=== PATIENT | female | born 1945 | race Caucasian/White ===

== ENCOUNTER 2016-05-24 09:25 | Outpatient (CLI) | payer MEDICARE | END 2016-05-24 09:26 | disposition home or self-care (01) | DX: I10 Essential (primary) hypertension (principal) ==

== ENCOUNTER 2016-09-21 13:29 | Outpatient (CLI) | payer MEDICARE | END 2016-09-21 13:30 | disposition home or self-care (01) | DX: Z12.31 Encounter for screening mammogram for malignant neoplasm of breast (principal) ==

== ENCOUNTER 2017-04-30 14:00 | Outpatient (CLI) | payer MEDICARE ==
[2017-04-30 20:17] LABS: BASOPHILS % (AUTO) 0.5 %; EOSINOPHILS # (AUTO) 0.1 10^3/uL (0.0-0.7); EOSINOPHILS % (AUTO) 1.2 %; HCT - HEMATOCRIT 45.3 % (37.0-47.0); HGB - HEMOGLOBIN 14.6 g/dL (12.0-16.0); LYMPHOCYTES # (AUTO) 1.1 10^3/uL (1.5-3.5); LYMPHOCYTES % (AUTO) 12.4 %; MEAN CORPUSCULAR HGB CONC 32.3 g/dL (32.0-36.0); MEAN CORPUSCULAR VOLUME 86.9 fL (81.0-99.0); MEAN PLATELET VOLUME 7.8 fL (7.9-10.8); MONOCYTES # (AUTO) 0.5 10^3/uL (0.0-1.0); MONOCYTES % (AUTO) 6.2 %; NEUTROPHILS % (AUTO) 79.7 %; RED BLOOD COUNT 5.22 10^6/uL (4.20-5.40); UNCORRECTED WHITE BLOOD COUNT 8.7 x10^3/uL; WHITE BLOOD COUNT 8.7 x10^3/uL (4.8-10.8)
[2017-04-30 20:44] LABS: ALBUMIN/GLOBULIN RATIO 0.8 (1.0-2.2); BILIRUBIN,TOTAL 0.5 mg/dL (0.2-1.0); BUN - BLOOD UREA NITROGEN 21 mg/dL (6-20); CALCIUM 9.5 mg/dL (8.5-10.3); CARBON DIOXIDE - CO2 27 mmol/L (21-32); CHLORIDE 104 mmol/L (101-111); CHOL/HDL RATIO 4.8 (<4.4); CHOLESTEROL 217 mg/dL; CREATININE 1.2 mg/dL (0.4-1.0); GFR - MDRD 44 (>89); GLUCOSE 130 mg/dL (70-100); HDL CHOLESTEROL 45 mg/dL; POTASSIUM 4.4 mmol/L (3.5-5.0); SODIUM 140 mmol/L (135-145); TOTAL PROTEIN 8.5 g/dL (6.7-8.2); TRIGLYCERIDES 194 mg/dL; VLDL CHOLESTEROL 39 mg/dL
== END 2017-04-30 14:01 ==
LOC: LAB.WCP 14:00
PROVIDERS: ATTEND Physician Assistant Medical
DX: Z51.81 Encounter for therapeutic drug level monitoring (principal); E78.5 Hyperlipidemia, unspecified; I10 Essential (primary) hypertension; R11.0 Nausea
CPT/HCPCS: 36415; 80053; 80061; 84443; 85025; 87086

== ENCOUNTER 2017-05-01 08:00 | Outpatient (CLI) | payer MEDICARE | END 2017-05-01 08:01 | disposition home or self-care (01) | LOC: LAB.WCP 08:00 | PROVIDERS: ATTEND Physician Assistant Medical | DX: R11.0 Nausea (principal) | CPT/HCPCS: 87086 ==

== ENCOUNTER 2017-08-07 11:50 | Outpatient (CLI) | payer MEDICARE ==
[2017-08-07 19:27] LABS: HB2 TOTAL 14.9 g/dL; HEMOGLOBIN A1C 0.64 g/dL; HEMOGLOBIN A1C % 6.1 % (4.6-6.2)
[2017-08-07 19:30] LABS: ALBUMIN 3.9 g/dL (3.2-5.5); ALKALINE PHOSPHATASE 73 IU/L (42-121); ALT ALANINE AMINOTRANSFERASE 17 IU/L (10-60); AST ASPARTATE AMINOTRANSFERASE 18 IU/L (10-42); BILIRUBIN,TOTAL 0.5 mg/dL (0.2-1.0); BUN - BLOOD UREA NITROGEN 18 mg/dL (6-20); CALCIUM 9.2 mg/dL (8.5-10.3); CARBON DIOXIDE - CO2 24 mmol/L (21-32); CHLORIDE 106 mmol/L (101-111); CHOL/HDL RATIO 4.1 (<4.4); CHOLESTEROL 149 mg/dL; CREATININE 1.1 mg/dL (0.4-1.0); GFR - MDRD 49 (>89); GLUCOSE 128 mg/dL (70-100); HDL CHOLESTEROL 36 mg/dL; LDL CHOLESTEROL,CALCULATED 87 mg/dL; LDL/HDL RATIO 2.4 (<4.4); SODIUM 139 mmol/L (135-145); TOTAL PROTEIN 7.9 g/dL (6.7-8.2); VLDL CHOLESTEROL 26 mg/dL
== END 2017-08-07 11:51 ==
LOC: LAB.WCP 11:50
PROVIDERS: ATTEND Family Medicine
DX: Z51.81 Encounter for therapeutic drug level monitoring (principal); E78.5 Hyperlipidemia, unspecified; E11.9 Type 2 diabetes mellitus without complications
CPT/HCPCS: 36415; 80053; 80061; 83036; 83721

== ENCOUNTER 2017-11-02 12:59 | Outpatient (CLI) | payer MEDICARE ==
--- NOTE | 2017-11-02 14:37 | XRAY Report ---
Procedure Date: 11/02/2017 Accession Number: [id number] / [id number] Procedure: XR - Ankle 3 View LT CPT Code: FULL RESULT: EXAM: LEFT ANKLE AND FOOT RADIOGRAPHY EXAM DATE: 11/02/2017 02:19 PM. CLINICAL HISTORY: Left foot pain and left ankle pain. COMPARISON: None. TECHNIQUE: 3 views ankle and 2 views foot. FINDINGS: Bones: Normal. No fractures or bone lesions. Joints: Minor degenerative changes are seen in the tibiotalar joint. No significant joint space narrowing is demonstrated. There is moderate degenerative changes seen in the mid foot structures primarily involving the tarsometatarsal joints. Alignment is preserved. Soft Tissues: There is generalized soft tissue swelling seen in the ankle and midfoot regions. IMPRESSION: No acute osseous abnormality demonstrated. Moderate degenerative changes seen in the mid foot structures without malalignment. RADIA
--- NOTE | 2017-11-02 14:37 | XRAY Report ---
Procedure Date: 11/02/2017 Accession Number: [id number] / [id number] Procedure: XR - Foot 2 View LT CPT Code: FULL RESULT: EXAM: LEFT ANKLE AND FOOT RADIOGRAPHY EXAM DATE: 11/02/2017 02:19 PM. CLINICAL HISTORY: Left foot pain and left ankle pain. COMPARISON: None. TECHNIQUE: 3 views ankle and 2 views foot. FINDINGS: Bones: Normal. No fractures or bone lesions. Joints: Minor degenerative changes are seen in the tibiotalar joint. No significant joint space narrowing is demonstrated. There is moderate degenerative changes seen in the mid foot structures primarily involving the tarsometatarsal joints. Alignment is preserved. Soft Tissues: There is generalized soft tissue swelling seen in the ankle and midfoot regions. IMPRESSION: No acute osseous abnormality demonstrated. Moderate degenerative changes seen in the mid foot structures without malalignment. RADIA
== END 2017-11-02 13:00 | disposition home or self-care (01) ==
LOC: DI 12:59
PROVIDERS: ATTEND Physician Assistant Medical
DX: M19.072 Primary osteoarthritis, left ankle and foot (principal)
CPT/HCPCS: 36415; 84550

== ENCOUNTER 2018-04-02 13:39 | Outpatient (CLI) | payer MEDICARE ==
[2018-04-02 19:20] LABS: ALBUMIN 3.8 g/dL (3.2-5.5); ALBUMIN/GLOBULIN RATIO 0.9 (1.0-2.2); ALKALINE PHOSPHATASE 85 IU/L (42-121); ALT ALANINE AMINOTRANSFERASE 17 IU/L (10-60); AST ASPARTATE AMINOTRANSFERASE 18 IU/L (10-42); BILIRUBIN,TOTAL 0.7 mg/dL (0.2-1.0); BUN - BLOOD UREA NITROGEN 25 mg/dL (6-20); CARBON DIOXIDE - CO2 26 mmol/L (21-32); CHLORIDE 105 mmol/L (101-111); CHOL/HDL RATIO 4.7 (<4.4); CHOLESTEROL 208 mg/dL; CREATININE 1.1 mg/dL (0.4-1.0); GFR - MDRD 49 (>89); GLUCOSE 119 mg/dL (70-100); HB2 TOTAL 15.2 g/dL; HDL CHOLESTEROL 44 mg/dL; HEMOGLOBIN A1C 0.65 g/dL; HEMOGLOBIN A1C % 6.1 % (4.6-6.2); LDL CHOLESTEROL,CALCULATED 135 mg/dL; LDL/HDL RATIO 3.1 (<4.4); SODIUM 141 mmol/L (135-145); TOTAL PROTEIN 7.9 g/dL (6.7-8.2); VLDL CHOLESTEROL 29 mg/dL
== END 2018-04-02 13:40 ==
LOC: LAB.WCP 13:39
PROVIDERS: ATTEND Family Medicine
DX: E78.5 Hyperlipidemia, unspecified (principal); R73.9 Hyperglycemia, unspecified; K76.0 Fatty (change of) liver, not elsewhere classified
CPT/HCPCS: 36415; 80053; 80061; 83036; 83721

== ENCOUNTER 2018-10-21 15:21 | Outpatient (CLI) | payer MEDICARE ==
--- NOTE | 2018-10-21 15:58 | XRAY Report ---
Reason: ELBOW JOINT PAIN,RIGHT Procedure Date: 10/21/2018 Accession Number: [id number] / [id number] Procedure: WCP - Elbow 3 View RT CPT Code: FULL RESULT: EXAM: RIGHT ELBOW RADIOGRAPHY EXAM DATE: 10/21/2018 03:33 PM. CLINICAL HISTORY: Elbow joint pain, right. COMPARISON: None. TECHNIQUE: 4 views. FINDINGS: The lateral view is suboptimally positioned. Bones: Irregular disruption of the cortex of the radial head on multiple views was suspicious for a radial head fracture. Osteophytosis is seen along the medial aspect of the articular surface of the olecranon. Joints: Suboptimal lateral view limits evaluation for joint effusion, none is seen. Evaluation for subluxation is also limited, no dislocation is seen. Soft Tissues: Normal. No soft tissue swelling. IMPRESSION: Radial head fracture suspected. RADIA The call report notification system was initiated by Dr. Gerard Wells at 03:55 PM on 10/21/2018. ADDENDUM: 10/21/18 16:04 The above call report findings were discussed with Mago Baldwin by Dr. Gerard Wells at 04:04 PM on 10/21/2018. Given that the patient is not focally tender over the region of the radial head, recommendation for dedicated radial head view in conjunction with a repeat lateral radiograph was made in hopes of clarifying appearance of the head of the radius.
== END 2018-10-21 15:22 | disposition home or self-care (01) ==
LOC: DI.WCP 15:21
PROVIDERS: ATTEND Physician Assistant Medical
DX: M25.521 Pain in right elbow (principal)

== ENCOUNTER 2018-10-22 11:00 | Outpatient (CLI) | payer MEDICARE ==
--- NOTE | 2018-10-22 12:14 | XRAY Report ---
Reason: TECH REPEAT - NO CHARGE - RT ELBOW PAIN Procedure Date: 10/22/2018 Accession Number: [id number] / [id number] Procedure: XR - Elbow 3 View RT CPT Code: FULL RESULT: EXAM: RIGHT ELBOW RADIOGRAPHY EXAM DATE: 10/22/2018 11:31 AM. CLINICAL HISTORY: Tech repeat - no charge - right elbow pain. COMPARISON: ELBOW 3 VIEW RT 10/21/2018 3:14 PM. TECHNIQUE: 3 views. FINDINGS: Bones: No definite fracture in the region of the radial head is identified. Joints: Osteophytes are seen in the region of the head of the elbow. Soft Tissues: The previously seen soft tissue hematoma along the dorsal aspect of the ulna has not enlarged. IMPRESSION: Favor osteophytosis in the region of the head of the elbow. Recommendation: If the patient's symptoms do not subside in an appropriate timeframe, follow-up radiography in approximately 2 weeks looking for evidence of fracture healing could be considered. RADIA
== END 2018-10-22 11:01 | disposition home or self-care (01) ==
LOC: DI 11:00
PROVIDERS: ATTEND Physician Assistant Medical
DX: M25.521 Pain in right elbow (principal)

== ENCOUNTER 2019-02-13 17:34 | Outpatient (CLI) | payer MEDICARE | END 2019-02-13 17:35 | disposition critical access hospital (66) | LOC: EMS 17:34 | PROVIDERS: ATTEND Surgery | DX: R07.9 Chest pain, unspecified (principal) | CPT/HCPCS: A0425; A0427 ==

== ENCOUNTER 2019-03-24 05:08 | Outpatient (CLI) | payer MEDICARE | END 2019-03-24 05:09 | disposition critical access hospital (66) | LOC: EMS 05:08 | PROVIDERS: ATTEND Surgery | DX: S01.01XA Laceration without foreign body of scalp, initial encounter (principal); W20.8XXA Other cause of strike by thrown, projected or falling object, initial encounter; Y92.009 Unspecified place in unspecified non-institutional (private) residence as the place of occurrence of the external cause ==

== ENCOUNTER 2019-03-24 05:25 | Emergency (ER) | payer MEDICARE ==
--- NOTE | 2019-03-24 06:02 | ED Physician Documentation ---
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 Her walker became caught on some blankets that were on the floor, causing her to fall forward. she reached for her fireplace mantle, which was not fixed to the wall, and dust the mantle fell and struck the patient on her head. She denies loss of consciousness, and only has mild headache. She sustained a laceration to her scalp as a result of the blow. Review of Systems Eyes: reports: Reviewed and negative Cardiac: reports: Reviewed and negative Respiratory: reports: Reviewed and negative GI: reports: Reviewed and negative Skin: reports: Laceration (s) Musculoskeletal: reports: Reviewed and negative Neurologic: reports: Headache (minimal), Head injury. denies: Generalized weakness, Focal weakness, Numbness, LOC PD PAST MEDICAL HISTORY - Past Medical History Cardiovascular: None Respiratory: None Endocrine/Autoimmune: None GI: None : Chronic bladder infection, Other HEENT: Chronic vision loss Psych: Anxiety Musculoskeletal: Osteoarthritis Derm: None, Other - Past Surgical History Past Surgical History: Yes General: Appendectomy, Colonoscopy HEENT: Cataracts, Tonsil/Adenoidectomy - Present Medications Home Medications: Ambulatory Orders Medication Instructions Recorded Confirmed Aspirin [Children's Aspirin] 81 mg PO DAILY 09/03/13 03/24/19 Fluoxetine HCl [Prozac] 40 mg PO DAILY 01/13/14 03/24/19 Lorazepam [Ativan] 1 mg PO TID PRN #15 tablet 02/13/19 03/24/19 - Allergies Allergies/Adverse Reactions: Allergies Allergy/AdvReac Type Severity Reaction Status Date / Time ondansetron HCl * Allergy Rash Verified 03/24/19 05:32 [From Zofran (as hydrochloride)] Sulfa (Sulfonamide AdvReac Unknown Nausea Verified 03/24/19 05:32 Antibiotics) - Social History Does the pt smoke?: No Smoking Status: Never smoker Does the pt drink ETOH?: No Does the pt have substance abuse?: No - Immunizations Immunizations are current?: Yes - POLST Patient has POLST: No POLST Status: Full Code PD ED PE NORMAL - Vitals Vital signs reviewed: Yes - General General: Alert and oriented X 3, No acute distress, Well developed/nourished - HEENT HEENT: PERRL, EOMI - Neck Neck: No bony TTP - Cardiac Cardiac: RRR, No murmur - Respiratory Respiratory: No respiratory distress, Clear bilaterally - Abdomen Abdomen: Soft, Non tender - Neuro Neuro: Alert and oriented X 3, vice president diversity 2-12 intact, No motor deficit, No sensory deficit, Normal speech Eye Opening: Spontaneous Motor: Obeys Commands Verbal: Oriented GCS Score: 15 Results - Vitals Vitals: Oxygen O2 Source Room air - Rads (name of study) CT head Radiology: Prelim report reviewed, See rad report Procedures - Laceration (location) Scalp Length in cm: 5 Wound type: Linear Neurovascular status: Sensory intact, Vascular intact Anesthesia: Lidocaine 1% Wound Preparation: Chlorhexadine Skin layer closure: [place] Other: Patient tolerated well, Neurovascular intact Complexity: Simple PD MEDICAL DECISION MAKING - ED course Complexity details: reviewed old records, reviewed results, re-evaluated p atient, considered differential, d/w patient ED course: patient denies neck pain and is nontender on exam. There are no significant distracting injuries, she is not on anticoagulants, is oriented x3, and thus cervical spine cleared clinically. Scalp laceration was repaired as noted above. CT head was equivocal for trace SAH. I discussed this at length with patient and her friend. By the time the CT was interpreted by radiology, patient reported she no longer had headache (this was without medications except local infiltration of lidocaine for wound repair). She repeatedly stated she wanted to be discharged home and expressed clear understanding of the implications of the CT reading. I offered to contact neurosurgery to discuss her case with them and obtain their recommendation. She again expressed preference to be discharged. she was in no apparent distress except for appropriate anxiety when results of CT were being discussed and repeat neurological exam remains unremarkable and without general or focal deficits. she indicates that she will call 911 immediately if she is worse in any way, and we discussed specific symptoms that would be concerning (such as headche , nausea/vomiting, confusion, numbness, weakness). Departure - Departure Disposition: 01 Home, Self Care Clinical Impression: Laceration Head injury Qualifiers: Encounter type: initial encounter Qualified Code(s): S09.90XA - Unspecified injury of head, initial encounter Condition: Good Instructions: ED Head Injury Closed Sleep Mon, ED Laceration Scalp Stitch Or S tap Follow-Up: Anastasiia Jenkins DO [Primary Care Provider] - (7-10 days for removal of tiffani) Discharge Date/Time: 03/24/19 09:17
[2019-03-24] MEDS ORDERED: LIDOCAINE 1% 2 ML VIAL SUBQ STA (06:45)
[2019-03-24] MEDS ORDERED: TETANUS/DIPHTHERIA/PERTUSSIS 0.5 ML SYRINGE IM ONE (06:46)
--- NOTE | 2019-03-24 07:29 | CT Report ---
Reason: head injury Procedure Date: 03/24/2019 Accession Number: [id number] / [id number] Procedure: CT - HEAD WO CPT Code: Final Report FULL RESULT: EXAM: CT HEAD EXAM DATE: 03/24/2019 06:39 AM CLINICAL HISTORY: Head injury. Scalp laceration. COMPARISON: None. TECHNIQUE: Multiaxial CT images were obtained from the foramen magnum to the vertex. Reformats: Sagittal and coronal. IV contrast: None. In accordance with CT protocol optimization, one or more of the following dose reduction techniques were utilized for this exam: automated exposure control, adjustment of mA and/or KV based on patient size, or use of iterative reconstructive technique. FINDINGS: Minimal CT evidence of soft tissue edema of the upper scalp. No displaced fracture. Very subtle ill-defined curvilinear increased density along the periphery of the right parietal lobe, equivocal findings for a trace of acute subarachnoid hemorrhage. Axial reference images 23 and 24 of series 3. Mild age-related generalized cerebral volume loss. No hydrocephalus. No acute infarct. Moderately prominent amorphous white matter hypoattenuation, likely attributable to aging and chronic microangiopathy. No acute sinus or mastoid fluid opacity. IMPRESSION: Equivocal findings of a trace of acute subarachnoid hemorrhage over the right parietal convexity. RADIA The above call report findings were discussed with Jono Bridges by Dr. Efren Villasenor at 07:21 AM on 03/24/2019.
[2019-03-24 09:10] VITALS: BP 137/92
== END 2019-03-24 09:17 | disposition home or self-care (01) ==
LOC: EDUNIT# → ED 05:25
DX: S06.6X0A Traumatic subarachnoid hemorrhage without loss of consciousness, initial encounter (principal); S01.01XA Laceration without foreign body of scalp, initial encounter; W01.198A Fall on same level from slipping, tripping and stumbling with subsequent striking against other object, initial encounter; Y93.01 Activity, walking, marching and hiking; Y92.009 Unspecified place in unspecified non-institutional (private) residence as the place of occurrence of the external cause; Z23 Encounter for immunization; Z79.82 Long term (current) use of aspirin
CPT/HCPCS: 12002; 70450; 90471

== ENCOUNTER 2019-05-22 08:00 | Outpatient (CLI) | payer MEDICARE | END 2019-05-22 23:59 | disposition home or self-care (01) | LOC: LAB.R 08:00 | PROVIDERS: ATTEND Family Medicine | DX: R30.0 Dysuria (principal) | CPT/HCPCS: 81002; 87086 ==

== ENCOUNTER 2019-11-11 16:00 | Outpatient (CLI) | payer MEDICARE | END 2019-11-11 23:59 | disposition home or self-care (01) | LOC: LAB.R 16:00 | PROVIDERS: ATTEND Physician Assistant Medical | DX: N39.0 Urinary tract infection, site not specified (principal) | CPT/HCPCS: 87086 ==

== ENCOUNTER 2019-11-28 17:50 | Outpatient (CLI) | payer MEDICARE | END 2019-11-28 17:51 | disposition EMS.NT | LOC: EMS 17:50 | PROVIDERS: ATTEND Surgery | DX: R51 Headache (principal) ==

== ENCOUNTER 2020-02-01 08:00 | Outpatient (CLI) | payer MEDICARE | END 2020-02-01 23:59 | disposition home or self-care (01) | LOC: LAB.R 08:00 | PROVIDERS: ATTEND Nurse Practitioner Family | DX: R30.0 Dysuria (principal) | CPT/HCPCS: 87086 ==

== ENCOUNTER 2020-02-07 02:44 | Outpatient (CLI) | payer MEDICARE | END 2020-02-07 02:45 | disposition critical access hospital (66) | LOC: EMS 02:44 | PROVIDERS: ATTEND Surgery | DX: R55 Syncope and collapse (principal); R51 Headache | CPT/HCPCS: A0425; A0427 ==

== ENCOUNTER 2020-02-07 03:02 | Emergency (ER) | payer MEDICARE ==
--- NOTE | 2020-02-07 03:15 | ED Physician Documentation ---
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 No: Neck injury Pain level max: 0 Pain level now: 0 Similar symptoms before: Has not had sx before - Additional information Additional information: BIBA for syncope. 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 She says she found that she was too weak to stand back up and had to crawl to the phone to call 911. Medics report that the initial one or two BP readings were in the 80s (systolic blood pressure) but that her SBP improved en route to 100s. They note that patient appears to be an xious. Patient had taken first dose of macrobid earlier this evening; she was seen in a clinic in [place] recently and had UA, patient tells me "they didn't find the infection on the urine test but they called me today and said it was an infection" (her description is suggestive of nondiagnostic UA but (+) urine culture). Patient says she had "hives" (per patient) on her chest and back earlier tonight after her first dose of the macrobid. 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 Review of Systems Constitutional: reports: Reviewed and negative Eyes: reports: Reviewed and negative Cardiac: reports: Reviewed and negative Respiratory: reports: Reviewed and negative GI: reports: Reviewed and negative : denies: Dysuria, Frequency Musculoskeletal: reports: Reviewed and negative Neurologic: reports: Generalized weakness, Syncope, Head injury, LOC. denies: Focal weakness, Numbness, Headache PD PAST MEDICAL HISTORY - Past Medical History Cardiovascular: None Respiratory: None Endocrine/Autoimmune: None GI: None : Chronic bladder infection, Other HEENT: Chronic vision loss Psych: Anxiety Musculoskeletal: Osteoarthritis Derm: None, Other - Past Surgical History Past Surgical History: Yes General: Appendectomy, Colonoscopy HEENT: Cataracts, Tonsil/Adenoidectomy - Present Medications Home Medications: Ambulatory Orders Medication Instructions Recorded Confirmed Aspirin [Children's Aspirin] 81 mg PO DAILY 04/17/14 11/05/19 Fluoxetine HCl [Prozac] 40 mg PO DAILY 01/13/14 03/24/19 Lorazepam [Ativan] 1 mg PO TID PRN #15 tablet 02/13/19 03/24/19 - Allergies Allergies/Adverse Reactions: Allergies Allergy/AdvReac Type Severity Reaction Status Date / Time ondansetron HCl * Allergy Rash Verified 03/24/19 05:32 [From Zofran (as hydrochloride)] Sulfa (Sulfonamide AdvReac Unknown Nausea Verified 03/24/19 05:32 Antibiotics) - Social History Does the pt smoke?: No Smoking Status: Never smoker Does the pt drink ETOH?: No Does the pt have substance abuse?: No - Immunizations Immunizations are current?: Yes - POLST Patient has POLST: No POLST Status: Full Code PD ED PE NORMAL - Vitals Vital signs reviewed: Yes - General General: Well developed/nourished, Other (appears anxious, pale; she has difficulty answering questions (difficulty concentrating and coming up with some answers)) - HEENT HEENT: PERRL, EOMI, Moist mucous membranes, Other (eyes closed, opens them briefly when asked to do so) - Neck Neck: Supple, no meningeal sign, No bony TTP - Cardiac Cardiac: RRR (distant heart sounds), No murmur, Other (thready pulse (radial) on my initial check (see narrative, below)) - Respiratory Respiratory: No respiratory distress, Clear bilaterally - Abdomen Abdomen: Soft, Non tender - Back Back: No CVA TTP, No spinal TTP - Extremities Extremities: No edema - Neuro Neuro: Alert and oriented X 3, 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, No motor deficit, No sensory def icit Eye Opening: To Voice Motor: Obeys Commands Verbal: Oriented GCS Score: 14 PD ED PE EXPANDED - Derm Derm: Pale - Extremities Extremities: Other (cool extremities) Results - Vitals Vitals: Vital Signs - 24 hr 02/07/20 02/07/20 02/07/20 03:05 03:52 04:00 Temperature 35.8 C L Heart Rate 71 67 65 Respiratory 16 16 18 Rate Blood Pressure 110/49 L 127/61 120/50 L O2 Saturation 98 98 99 02/07/20 02/07/20 02/07/20 05:00 05:30 06:00 Temperature Heart Rate 65 71 67 Respiratory 16 15 16 Rate Blood Pressure 111/65 116/63 116/62 O2 Saturation 98 96 97 02/07/20 02/07/20 02/07/20 07:25 08:00 08:30 Temperature 36.1 C L Heart Rate 76 78 85 Respiratory 18 15 16 Rate Blood Pressure 120/73 115/54 L 137/79 H O2 Saturation 98 100 99 Oxygen O2 Source Room air - EKG (time done) No standard instances Rate: Rate (enter#) (69) Rhythm: NSR [place]: LAD Intervals: Normal GA QRS: LVH Ischemia: Normal ST segments, Q waves (III, aVF) Computer interpretation: Disagree with computer (disagree with junctional) - Labs Labs: Laboratory Tests 02/07/20 02/07/20 02/07/20 03:16 03:16 03:16 WBC 17.8 H RBC 5.23 Hgb 14.8 Hct 47.9 H MCV 91.6 MCH 28.3 MCHC 30.9 L RDW 14.8 Plt Count 231 MPV 8.9 Neut # (Auto) 15.8 H Lymph # (Auto) 0.8 L [place] # (Auto) 1.0 Eos # (Auto) 0.0 Baso # (Auto) 0.1 Absolute Nucleated RBC 0.00 Nucleated RBC % 0.0 PT 14.6 H INR 1.3 H APTT 43.4 H Sodium 137 Potassium 3.4 L Chloride 102 Carbon Dioxide 18 L Anion Gap 17.0 H BUN 31 H Creatinine 1.5 H Estimated GFR (MDRD) 34 L Glucose 192 H Lactic Acid Calcium 9.2 Total Bilirubin 0.6 AST 24 ALT 18 Alkaline Phosphatase 73 Troponin I High Sens Total Protein 7.8 Albumin 3.7 Globulin 4.1 Albumin/Globulin Ratio 0.9 L Lipase 41 Urine Color Urine Clarity Urine pH Ur Specific [place] Urine Protein Urine Glucose (UA) Urine Ketones Urine Occult Blood Urine Nitrite Urine Bilirubin Urine Urobilinogen Ur Leukocyte Esterase Urine RBC Urine WBC Ur Squamous Epith Cells Amorphous Sediment Urine Bacteria Urine Mucus Ur Microscopic Review Urine Culture Comments 02/07/20 02/07/20 02/07/20 03:16 05:04 05:04 WBC RBC Hgb Hct MCV MCH MCHC RDW Plt Count MPV Neut # (Auto) Lymph # (Auto) [place] # (Auto) Eos # (Auto) Baso # (Auto) Absolute Nucleated RBC Nucleated RBC % PT INR APTT Sodium Potassium Chloride Carbon Dioxide Anion Gap BUN Creatinine Estimated GFR (MDRD) Glucose Lactic Acid 4.0 H* Calcium Total Bilirubin AST ALT Alkaline Phosphatase Troponin I High Sens 35.8 H* 101.4 H* Total Protein Albumin Globulin Albumin/Globulin Ratio Lipase Urine Color Urine Clarity Urine pH Ur Specific [place] Urine Protein Urine Glucose (UA) Urine Ketones Urine Occult Blood Urine Nitrite Urine Bilirubin Urine Urobilinogen Ur Leukocyte Esterase Urine RBC Urine WBC Ur Squamous Epith Cells Amorphous Sediment Urine Bacteria Urine Mucus Ur Microscopic Review Urine Culture Comments 02/07/20 02/07/20 02/07/20 05:13 07:20 07:30 WBC RBC Hgb Hct MCV MCH MCHC RDW Plt Count MPV Neut # (Auto) Lymph # (Auto) [place] # (Auto) Eos # (Auto) Baso # (Auto) Absolute Nucleated RBC Nucleated RBC % PT INR APTT Sodium Potassium Chloride Carbon Dioxide Anion Gap BUN Creatinine Estimated GFR (MDRD) Glucose Lactic Acid 2.3 H Calcium Total Bilirubin AST ALT Alkaline Phosphatase Troponin I High Sens 139.2 H* Total Protein Albumin Globulin Albumin/Globulin Ratio Lipase Urine Color YELLOW Urine Clarity CLEAR Urine pH 5.0 Ur Specific [place] >=1.030 H Urine Protein 100 H Urine Glucose (UA) NEGATIVE Urine Ketones NEGATIVE Urine Occult Blood MODERATE H Urine Nitrite NEGATIVE Urine Bilirubin NEGATIVE Urine Urobilinogen 0.2 (NORMAL) Ur Leukocyte Esterase NEGATIVE Urine RBC 6-10 H Urine WBC 4-5 Ur Squamous Epith Cells RARE Squamous Amorphous Sediment Few Urine Bacteria Moderate H Urine Mucus Few Strands Ur Microscopic Review INDICATED Urine Culture Comments INDICATED - Rads (name of study) CT head Radiology: Prelim report reviewed, See rad report chest xray Radiology: Prelim report reviewed, See rad report PD MEDICAL DECISION MAKING - ED course Complexity details: reviewed results, re-evaluated patient, considered differential, d/w patient ED course: patient appeared pale and had thready pulse when I initially examined her (I was in room as patient was brought in by medics and present for medic report). Her extremities were cool to the touch. As patient was connected to monitor, I was trying to feel her right radial pulse and suddenly was able palpate a strong radial pulse; this correlated with improvement in her color. 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 Her initial presentation to ED was suggestive of hypotension despite having reportedly had sbp 100s shortly before arrival (although 80s when medics had first arrived on scene). For remainder of ED stay, patient was AAOx3, NAD (although bouts of crying due to recent loss of her ), and asymptomatic. EKG does not reveal concerning emergent findings but she has mildly elevated HsTni that increased on two subsequent repeat levels. D/W Dr. Dey at [place]. He initially recommends repeat lactate, as first measurement is 4.0. The 2-hour repeat is 2.3 (high normal is 2.2), and I relayed this to Dr. Dey. He subsequently called back and says Dr. Cory Greene at [facility] in [place] accepts patient for transfer but bed won't be available until approximately 1 PM. Care of patient turned over to Dr. Pierre pending transfer.
[2020-02-07 03:26] LABS: BASOPHILS # (AUTO) 0.1 10^3/uL (0.0-0.1); BASOPHILS % (AUTO) 0.4 %; EOSINOPHILS % (AUTO) 0.2 %; HGB - HEMOGLOBIN 14.8 g/dL (12.0-16.0); LYMPHOCYTES # (AUTO) 0.8 10^3/uL (1.5-3.5); LYMPHOCYTES % (AUTO) 4.5 %; MEAN CORPUSCULAR HEMOGLOBIN 28.3 pg (27.0-31.0); MEAN CORPUSCULAR HGB CONC 30.9 g/dL (32.0-36.0); MEAN CORPUSCULAR VOLUME 91.6 fL (81.0-99.0); MEAN PLATELET VOLUME 8.9 fL (7.9-10.8); MONOCYTES % (AUTO) 5.4 %; NEUTROPHILS # (AUTO) 15.8 10^3/uL (1.5-6.6); NEUTROPHILS % (AUTO) 88.7 %; PLT - PLATELET COUNT 231 10^3/uL (130-450); RED BLOOD COUNT 5.23 10^6/uL (4.20-5.40); RED CELL DISTRIBUTION WIDTH 14.8 % (12.0-15.0); WHITE BLOOD COUNT 17.8 x10^3/uL (4.8-10.8)
[2020-02-07 03:30] LABS: INR 1.3 (0.8-1.2); PT - PROTHROMBIN TIME 14.6 secs (9.9-12.6)
[2020-02-07 03:38] LABS: ALBUMIN 3.7 g/dL (3.2-5.5); ALBUMIN/GLOBULIN RATIO 0.9 (1.0-2.2); BILIRUBIN,TOTAL 0.6 mg/dL (0.2-1.0); CALCIUM 9.2 mg/dL (8.5-10.3); CREATININE 1.5 mg/dL (0.4-1.0); PARTIAL THROMBOPLASTIN TIME 43.4 secs (24.9-33.3); TOTAL PROTEIN 7.8 g/dL (6.7-8.2)
[2020-02-07] MEDS ORDERED: SODIUM CHLORIDE 0.9% 500 ML IV STA ×2 (03:57→05:14)
[2020-02-07 05:22] LABS: BILIRUBIN,URINE NEGATIVE (NEGATIVE); GLUCOSE, URINE (UA) NEGATIVE (NEGATIVE); KETONES,URINE (UA) NEGATIVE (NEGATIVE); LEUKOCYTE ESTERASE, URINE NEGATIVE (NEGATIVE); NITRITE,URINE NEGATIVE (NEGATIVE); OCCULT BLOOD,URINE MODERATE (NEGATIVE); PROTEIN,URINE 100 mg/dL (NEGATIVE); UROBILINOGEN,URINE 0.2 (NORMAL) E.U./dL (NORMAL)
[2020-02-07 05:23] LABS: CLARITY,URINE CLEAR (CLEAR)
[2020-02-07 05:36] LABS: SQUAMOUS EPITHELIAL CELL,UR RARE Squamous (<= Few)
[2020-02-07 05:37] LABS: AMORPHOUS SEDIMENT,UR Few /LPF; BACTERIA,URINE Moderate /HPF (None Seen); MUCUS,URINE Few Strands
--- NOTE | 2020-02-07 09:24 | XRAY Report ---
PROCEDURE: Chest 1 View X-Ray INDICATIONS: chest pain TECHNIQUE: One view of the chest was acquired. COMPARISON: 04/30/2017 FINDINGS: Surgical changes and devices: None. Lungs and pleura: No pleural effusions or pneumothorax. Lungs are clear. Mediastinum: Mediastinal contours appear normal. Heart size is normal. Bones and chest wall: No suspicious bony lesions. Overlying soft tissues appear unremarkable. IMPRESSION: Normal portable chest. Note: No significant discrepancy from the preliminary report. Reviewed by: Gerard Romano MD on 02/07/2020 8:23 AM TRINI Approved by: Gerard Romano MD on 02/07/2020 8:23 AM TRINI Station ID: [id number]
--- NOTE | 2020-02-07 09:27 | CT Report ---
PROCEDURE: HEAD WO INDICATIONS: syncope, head injury, on Plavix TECHNIQUE: Noncontrast 4.5 mm thick angled axial sections acquired from the foramen magnum to the vertex. For r adiation dose reduction, the following was used: automated exposure control, adjustment of mA and/or kV according to patient size. COMPARISON: Prior head CT 03/24/2019. No additional prior brain imaging studies are available for re view on the PACS system at the time of this dictation. Correlation is also made with the accompanying chest radiograph, 02/07/2020 FINDINGS: Image quality: Diagnostic, with note made of motion artifact. CSF spaces: Basal cisterns are patent. No extra-axial fluid collections. Ventricles are normal in size and shape. Brain: No midline shift. Brain parenchymal volume loss is seen. At least moderate chronic small ves patrick ischemic change can be seen. No intracranial masses or hemorrhage. William-white matter interface i s normal. Skull and face: Areas of right-sided scalp hematoma are seen. No underlying calvarial fracture is see n. Calvarium and visualized facial bones are intact, without suspicious lesions. Sinuses: Visualized sinuses and mastoids are clear. IMPRESSION: No intracranial hemorrhage is seen. No significant intracranial abnormality is seen. Areas of right-sided scalp hematoma are seen, without an associated underlying calvarial fracture. Age-appropriate brain parenchymal volume loss and chronic small vessel ischemic change can be seen. Note: No significant discrepancy from the preliminary report. Reviewed by: Gerard Romano MD on 02/07/2020 8:26 AM TRINI Approved by: Gerard Romano MD on 02/07/2020 8:26 AM AKLESVIA Station ID: [id number]
[2020-02-07] MEDS ORDERED: ASPIRIN CHEW 81 MG TABLET PO STA (13:10)
[2020-02-07] MEDS ORDERED: ENOXAPARIN 80 MG/0.8 ML SYRINGE SUBQ STA (13:11)
[2020-02-07] MEDS ORDERED: LACTATED RINGERS 1,000 ML IV STA (13:22)
[2020-02-07 13:40] LABS: BASOPHILS % (AUTO) 0.4 %; EOSINOPHILS % (AUTO) 0.1 %; HGB - HEMOGLOBIN 12.7 g/dL (12.0-16.0); LYMPHOCYTES # (AUTO) 0.8 10^3/uL (1.5-3.5); LYMPHOCYTES % (AUTO) 7.3 %; MEAN CORPUSCULAR HEMOGLOBIN 27.5 pg (27.0-31.0); MEAN CORPUSCULAR HGB CONC 30.6 g/dL (32.0-36.0); MEAN CORPUSCULAR VOLUME 89.8 fL (81.0-99.0); MONOCYTES # (AUTO) 0.6 10^3/uL (0.0-1.0); MONOCYTES % (AUTO) 5.1 %; NEUTROPHILS # (AUTO) 9.8 10^3/uL (1.5-6.6); NEUTROPHILS % (AUTO) 86.7 %; PLT - PLATELET COUNT 201 10^3/uL (130-450); RED BLOOD COUNT 4.62 10^6/uL (4.20-5.40); RED CELL DISTRIBUTION WIDTH 14.9 % (12.0-15.0); WHITE BLOOD COUNT 11.3 x10^3/uL (4.8-10.8)
[2020-02-07 13:50] LABS: CALCIUM 8.6 mg/dL (8.5-10.3); CREATININE 1.5 mg/dL (0.4-1.0)
--- NOTE | 2020-02-07 13:55 | ED Physician Documentation ---
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 Disposition had already been determined with the transfer to [facility] for escalating troponin levels after syncopal episode. Dr. Bridges had talked with the coordinating physician for [place]. Transfer of care to ma pending room assignment and transfer. The patient remained stable without any symptoms here. Vitals are good. I did notice the lab abnormalities of the lactate that had improved. We can recheck that again. Her renal function was slightly elevated and we can reassess that now after she has had some IV fluids. Waiting room assignment from [facility]
[2020-02-07 15:40] VITALS: BP 117/55
== END 2020-02-07 16:13 | disposition short-term general hospital (02) ==
LOC: EDUNIT# → ED 03:02
DX: R55 Syncope and collapse (principal); I95.9 Hypotension, unspecified; R79.89 Other specified abnormal findings of blood chemistry; S00.03XA Contusion of scalp, initial encounter; W17.89XA Other fall from one level to another, initial encounter; Y93.E8 Activity, other personal hygiene; Y92.002 Bathroom of unspecified non-institutional (private) residence as the place of occurrence of the external cause; Z95.2 Presence of prosthetic heart valve; Z79.82 Long term (current) use of aspirin; N39.0 Urinary tract infection, site not specified
CPT/HCPCS: 36415; 70450; 71045; 80048; 80053; 81001; 83605; 83690; 84484; 85025; 85610; 85730; 87086; 93005; 96360; 96372; 99284; 99285; A9270; J1650; J7120; 81003

== ENCOUNTER 2020-02-17 14:58 | Outpatient (CLI) | payer MEDICARE ==
[2020-02-17 18:57] LABS: ALBUMIN 3.8 g/dL (3.2-5.5); BILIRUBIN,TOTAL 0.6 mg/dL (0.2-1.0); CALCIUM 9.2 mg/dL (8.5-10.3); CREATININE 1.2 mg/dL (0.4-1.0); TOTAL PROTEIN 7.7 g/dL (6.7-8.2)
== END 2020-02-17 23:59 | disposition home or self-care (01) ==
LOC: LAB.WCP 14:58
PROVIDERS: ATTEND Family Medicine
DX: N17.9 Acute kidney failure, unspecified (principal)
CPT/HCPCS: 36415; 80053

== ENCOUNTER 2020-03-10 08:00 | Outpatient (CLI) | payer MEDICARE ==
[2020-03-10 19:34] LABS: CALCIUM 9.1 mg/dL (8.5-10.3); CREATININE 1.3 mg/dL (0.4-1.0)
== END 2020-03-10 23:59 | disposition home or self-care (01) ==
LOC: LAB.WCP 08:00
PROVIDERS: ATTEND Physician Assistant Medical
DX: N17.9 Acute kidney failure, unspecified (principal); N39.0 Urinary tract infection, site not specified
CPT/HCPCS: 36415; 80048; 87086

== ENCOUNTER 2020-04-06 08:00 | Outpatient (CLI) | payer MEDICARE ==
[2020-04-06 19:20] LABS: BILIRUBIN,TOTAL 0.5 mg/dL (0.2-1.0); CALCIUM 9.4 mg/dL (8.5-10.3); CREATININE 1.2 mg/dL (0.4-1.0); TOTAL PROTEIN 8.1 g/dL (6.7-8.2)
== END 2020-04-06 23:59 | disposition home or self-care (01) ==
LOC: LAB.WCP 08:00
PROVIDERS: ATTEND Physician Assistant Medical
DX: N17.9 Acute kidney failure, unspecified (principal)
CPT/HCPCS: 36415; 80053

== ENCOUNTER 2020-05-23 11:51 | Outpatient (CLI) | payer MEDICARE ==
[2020-05-23 18:53] LABS: BASOPHILS % (AUTO) 0.4 %; CALCIUM 9.2 mg/dL (8.5-10.3); CREATININE 1.1 mg/dL (0.4-1.0); EOSINOPHILS # (AUTO) 0.1 10^3/uL (0.0-0.7); EOSINOPHILS % (AUTO) 1.6 %; HGB - HEMOGLOBIN 13.3 g/dL (12.0-16.0); LYMPHOCYTES # (AUTO) 0.7 10^3/uL (1.5-3.5); LYMPHOCYTES % (AUTO) 13.1 %; MEAN CORPUSCULAR HEMOGLOBIN 27.3 pg (27.0-31.0); MEAN CORPUSCULAR VOLUME 91.2 fL (81.0-99.0); MEAN PLATELET VOLUME 9.4 fL (7.9-10.8); MONOCYTES # (AUTO) 0.5 10^3/uL (0.0-1.0); MONOCYTES % (AUTO) 8.3 %; NEUTROPHILS # (AUTO) 4.2 10^3/uL (1.5-6.6); NEUTROPHILS % (AUTO) 75.5 %; PLT - PLATELET COUNT 259 10^3/uL (130-450); RED BLOOD COUNT 4.87 10^6/uL (4.20-5.40); RED CELL DISTRIBUTION WIDTH 14.6 % (12.0-15.0); WHITE BLOOD COUNT 5.6 x10^3/uL (4.8-10.8)
[2020-05-23 19:08] LABS: CREATININE,URINE 147.8 mg/dL; PROTEIN/CREATININE RATIO,URINE 0.1 (<=0.2)
== END 2020-05-23 23:59 | disposition home or self-care (01) ==
LOC: LAB.WCP 11:51
PROVIDERS: ATTEND Internal Medicine Nephrology
DX: N05.9 Unspecified nephritic syndrome with unspecified morphologic changes (principal); D70.9 Neutropenia, unspecified; D63.1 Anemia in chronic kidney disease; R80.9 Proteinuria, unspecified
CPT/HCPCS: 36415; 80048; 82570; 84156; 85025

== ENCOUNTER 2020-07-23 05:36 | Outpatient (CLI) | payer MEDICARE | END 2020-07-23 05:37 | disposition EMS.NT | LOC: EMS 05:36 | DX: S91.322A Laceration with foreign body, left foot, initial encounter (principal); W25.XXXA Contact with sharp glass, initial encounter; W45.8XXA Other foreign body or object entering through skin, initial encounter; Y93.89 Activity, other specified ==

== ENCOUNTER 2020-10-19 08:00 | Outpatient (CLI) | payer MEDICARE | END 2020-10-19 23:59 | disposition home or self-care (01) | LOC: LAB.WCP 08:00 | PROVIDERS: ATTEND Physician Assistant Medical | DX: R30.0 Dysuria (principal) | CPT/HCPCS: 87086 ==

== ENCOUNTER 2020-10-27 08:00 | Outpatient (CLI) | payer MEDICARE ==
[2020-10-27 18:26] LABS: ALBUMIN 4.1 g/dL (3.2-5.5); ALBUMIN/GLOBULIN RATIO 1.1 (1.0-2.2); ALKALINE PHOSPHATASE 69 IU/L (42-121); ALT ALANINE AMINOTRANSFERASE 17 IU/L (10-60); AST ASPARTATE AMINOTRANSFERASE 17 IU/L (10-42); BILIRUBIN,TOTAL 0.6 mg/dL (0.2-1.0); BUN - BLOOD UREA NITROGEN 22 mg/dL (6-20); CALCIUM 9.3 mg/dL (8.5-10.3); CARBON DIOXIDE - CO2 27 mmol/L (21-32); CHLORIDE 107 mmol/L (101-111); CHOL/HDL RATIO 3.5 (<4.4); CHOLESTEROL 152 mg/dL; CREATININE 1.3 mg/dL (0.4-1.0); GFR - MDRD 40 (>89); GLUCOSE 116 mg/dL (70-100); HDL CHOLESTEROL 43 mg/dL; LDL CHOLESTEROL,CALCULATED 81 mg/dL; LDL/HDL RATIO 1.9 (<4.4); POTASSIUM 4.6 mmol/L (3.5-5.0); SODIUM 142 mmol/L (135-145); TRIGLYCERIDES 141 mg/dL; VLDL CHOLESTEROL 28 mg/dL
== END 2020-10-27 23:59 | disposition home or self-care (01) ==
LOC: LAB.WCP 08:00
PROVIDERS: ATTEND Physician Assistant Medical
DX: E78.5 Hyperlipidemia, unspecified (principal)
CPT/HCPCS: 36415; 80053; 80061; 83721

== ENCOUNTER 2020-12-22 10:50 | Outpatient (CLI) | payer MEDICARE ==
--- NOTE | 2020-12-23 13:13 | Mammography Report ---
BILATERAL DIGITAL SCREENING MAMMOGRAM 3D/2D: 12/22/2020 CLINICAL: Routine screening. Comparison is made to exams dated: 09/21/2016 mammogram, 09/28/2014 mammogram, 09/30/2013 mammogram, 06/21 mammogram, and 04/21/2011 mammogram - [facility]. The tissue of both breasts is predominantly fatty. No significant masses, calcifications, or other findings are seen in either breast. There has been no significant interval change. IMPRESSION: NEGATIVE There is no mammographic evidence of malignancy. A 1 year screening mammogram is recommended. This exam was interpreted at Station ID: [id number]. NOTE: For mammograms, a report in lay terms will be sent to the patient. Approximately 15% of breast malignancies will not be visualized mammographically. In the management of a palpable breast mass, a negative mammogram must not discourage biopsy of a clinically suspicious lesion. Electronically Signed By: Dennis Medrano M.D. aty/penrad:12/22/2020 14:38:32 ACR BI-RADS Category 1: Negative 3341F PARENCHYMAL PATTERN: (F) - The breast(s) demonstrate(s) diffuse fatty replacement. BI-RADS CATEGORY: (1) - 1 RECOMMENDATION: (ANNUAL) - Recommend routine annual screening mammography. [id number] 1 year screening LATERALITY: (B)
== END 2020-12-22 10:51 | disposition home or self-care (01) ==
LOC: DI.N 10:50
DX: Z12.31 Encounter for screening mammogram for malignant neoplasm of breast (principal)

== ENCOUNTER 2020-12-22 10:56 | Outpatient (CLI) | payer MEDICARE ==
--- NOTE | 2020-12-22 16:25 | XRAY Report ---
PROCEDURE: Knee 3 View BILAT INDICATIONS: LUMBAR DJD, KNEE OSTEOARTHRITIS TECHNIQUE: 3 views of the bilateral knee(s) were acquired. COMPARISON: None. FINDINGS: Bones: No fractures or dislocations. No suspicious bony lesions. Advanced bilateral knee degenerat caryn change with bulky osteophytes and medial joint space obliteration and mild lateral subluxation of the tibia relative to the femur bilaterally. Soft tissues: Trace bilateral joint effusions. No suspicious soft tissue calcifications. IMPRESSION: Advanced bilateral knee joint degenerative arthritis. Reviewed by: Joao Ascencio MD on 12/22/2020 4:24 PM PDT Approved by: Joao Ascencio MD on 12/22/2020 4:24 PM PDT Station ID: [id number]
--- NOTE | 2020-12-22 17:02 | XRAY Report ---
PROCEDURE: Lumbar Spine 2 View INDICATIONS: LUMBAR DJD, KNEE OSTEOARTHRITIS TECHNIQUE: 3 views of the lumbar spine were acquired. COMPARISON: None. FINDINGS: Bones: There are multilevel degenerative changes. Facet arthrosis is present from L3 through L5. Ther e is grade 1 anterolisthesis of L3-4. Mild disc space narrowing at L3-4 severe disc space narrowing a t L4-5 and L5-S1 with disc osteophytes. No facet arthropathy. Soft tissues: Overlying bowel gas pattern is normal. No suspicious soft tissue calcifications. IMPRESSION: 1. Multilevel degenerative changes and facet arthrosis. 2. Disc disease at L3-4, L4-5 and L5-S1. Reviewed by: Antoni Calhoun on 12/22/2020 5:01 PM PDT Approved by: Antoni Calhuon on 12/22/2020 5:01 PM PDT Station ID: [id number]
== END 2020-12-22 10:57 | disposition home or self-care (01) ==
LOC: DI.N 10:56
PROVIDERS: ATTEND Physician Assistant Medical
DX: M47.816 Spondylosis without myelopathy or radiculopathy, lumbar region (principal); M51.36 Other intervertebral disc degeneration, lumbar region; M51.37 Other intervertebral disc degeneration, lumbosacral region; M17.0 Bilateral primary osteoarthritis of knee

== ENCOUNTER 2021-03-27 12:20 | Outpatient (CLI) | payer MEDICARE | END 2021-03-27 23:59 | disposition home or self-care (01) | LOC: LAB.N 12:20 | PROVIDERS: ATTEND Physician Assistant Medical | DX: R30.0 Dysuria (principal) | CPT/HCPCS: 87086 ==

== ENCOUNTER 2021-04-04 08:00 | Outpatient (CLI) | payer MEDICARE ==
--- NOTE | 2021-04-05 16:25 | XRAY Report ---
PROCEDURE: Ribs Bilat w/Chest 4 View INDICATIONS: CONTUSION OF THORAX TECHNIQUE: 4 views of the right ribs were acquired, along with a single view chest. COMPARISON: Chest x-ray 02/07/2020 FINDINGS: Surgical changes and devices: None. Bones and chest wall: No fractures or dislocations. No suspicious bony lesions. Overlying soft tis sues appear unremarkable. Lungs and pleura: No pleural effusions or pneumothorax. Lungs appear clear. Mediastinum: Mediastinal contours appear normal. Heart size is normal. IMPRESSION: No visualized acute fracture or dislocation. However, occult injury cannot be excluded. Recommend arlene rt interval imaging follow-up in 7-10 days as clinically indicated for additional evaluation. Reviewed by: Bebe Molina MD on 04/05/2021 4:24 PM PST Approved by: Bebe Molina MD on 04/05/2021 4:24 PM PST Station ID: [id number]
== END 2021-04-04 23:59 | disposition home or self-care (01) ==
LOC: DI.N 08:00
PROVIDERS: ATTEND Family Medicine
DX: S20.20XA Contusion of thorax, unspecified, initial encounter (principal)

== ENCOUNTER 2021-06-06 08:00 | Outpatient (CLI) | payer MEDICARE ==
[2021-06-06 18:44] LABS: ALBUMIN 3.7 g/dL (3.2-5.5); ALBUMIN/GLOBULIN RATIO 0.9 (1.0-2.2); BILIRUBIN,TOTAL 0.5 mg/dL (0.2-1.0); CALCIUM 9.4 mg/dL (8.5-10.3); CREATININE 1.1 mg/dL (0.4-1.0); POTASSIUM 4.5 mmol/L (3.5-5.0)
== END 2021-06-06 23:59 | disposition home or self-care (01) ==
LOC: LAB.WCP 08:00
PROVIDERS: ATTEND Physician Assistant Medical
DX: R73.9 Hyperglycemia, unspecified (principal)
CPT/HCPCS: 36415; 80053

== ENCOUNTER 2021-10-08 08:37 | Outpatient (CLI) | payer MEDICARE | END 2021-10-08 08:38 | disposition left against medical advice (07) | LOC: EMS 08:37 | DX: R62.7 Adult failure to thrive (principal); F32.A Depression, unspecified; Z63.4 Disappearance and death of family member ==

== ENCOUNTER 2021-10-20 08:00 | Outpatient (CLI) | payer MEDICARE | END 2021-10-20 23:59 | disposition home or self-care (01) | LOC: LAB.N 08:00 | PROVIDERS: ATTEND Physician Assistant Medical | DX: R30.0 Dysuria (principal) | CPT/HCPCS: 87077; 87086; 87181 ==

== ENCOUNTER 2021-11-18 23:27 | Emergency (ER) | payer MEDICARE ==
[2021-11-19] MEDS ORDERED: SODIUM CHLORIDE 0.9% 500 ML IV STA (00:07)
[2021-11-19 00:28] LABS: BASOPHILS % (AUTO) 0.4 %; EOSINOPHILS # (AUTO) 0.2 10^3/uL (0.0-0.7); EOSINOPHILS % (AUTO) 1.4 %; HCT - HEMATOCRIT 42.1 % (37.0-47.0); LYMPHOCYTES # (AUTO) 0.9 10^3/uL (1.5-3.5); LYMPHOCYTES % (AUTO) 7.9 %; MEAN CORPUSCULAR HEMOGLOBIN 27.3 pg (27.0-31.0); MEAN CORPUSCULAR HGB CONC 30.9 g/dL (32.0-36.0); MEAN CORPUSCULAR VOLUME 88.4 fL (81.0-99.0); MEAN PLATELET VOLUME 9.2 fL (7.9-10.8); MONOCYTES # (AUTO) 0.6 10^3/uL (0.0-1.0); MONOCYTES % (AUTO) 5.1 %; NEUTROPHILS # (AUTO) 9.7 10^3/uL (1.5-6.6); NEUTROPHILS % (AUTO) 84.8 %; PLT - PLATELET COUNT 246 10^3/uL (130-450); RED BLOOD COUNT 4.76 10^6/uL (4.20-5.40); RED CELL DISTRIBUTION WIDTH 15.1 % (12.0-15.0); WHITE BLOOD COUNT 11.4 x10^3/uL (4.8-10.8)
--- NOTE | 2021-11-19 00:31 | ED Physician Documentation ---
PD HPI ABD PAIN - Stated complaint Stated Complaint: NAUSEA,CONSTIPATION - Chief complaint Chief Complaint: Abd Pain - Additional information Additional information: Bev is a 76-year-old female with a history of an appendectomy, heart valve replacement (on warfarin) presenting for evaluation of lower abdominal discomfort throughout today with feelings of nausea. She feels that she is constipated but had a normal bowel movement yesterday. Orts having a bowel movement usually once a day and has been regular the last few days up until today. She denies any emesis or blood in her stools. She has not had this problem previously. Nothing makes her symptoms better or worse.Pain feels like a cramping or bloating. She denies dysuria or hematuria. Review of Systems Constitutional: denies: Fever Nose: denies: Congestion Cardiac: denies: Chest pain / pressure Respiratory: denies: Dyspnea GI: reports: Abdominal Pain, Nausea. denies: Vomiting, Diarrhea Skin: denies: Rash Musculoskeletal: denies: Back pain Neurologic: denies: Headache PD PAST MEDICAL HISTORY - Past Medical History Past Medical History: Yes Cardiovascular: None Respiratory: None Endocrine/Autoimmune: None GI: None : Incontinence, Chronic bladder infection, Other HEENT: Chronic vision loss Psych: Anxiety Musculoskeletal: Osteoarthritis Derm: None, Other Other Past Medical History: artificial heart valve - Past Surgical History Past Surgical History: Yes General: Appendectomy, Colonoscopy HEENT: Cataracts, Tonsil/Adenoidectomy - Present Medications Home Medications: Ambulatory Orders Medication Instructions Recorded Confirmed Aspirin [Children's Aspirin] 81 mg PO DAILY 09/03/13 03/24/19 Fluoxetine HCl [Prozac] 40 mg PO DAILY 01/13/14 03/24/19 Lorazepam [Ativan] 1 mg PO TID PRN #15 tablet 02/13/19 03/24/19 - Allergies Allergies/Adverse Reactions: Allergies Allergy/AdvReac Type Severity Reaction Status Date / Time ondansetron HCl * Allergy Rash Verified 11/18/21 23:35 [From Zofran (as hydrochloride)] Sulfa (Sulfonamide AdvReac Unknown Nausea Verified 11/18/21 23:35 Antibiotics) - Social History Does the pt smoke?: No Smoking Status: Never smoker Does the pt drink ETOH?: No Does the pt have substance abuse?: No - Immunizations Immunizations are current?: Yes - POLST Patient has POLST: No POLST Status: Full Code PD ED PE NORMAL - General General: Alert and oriented X 3, No acute distress, Well developed/nourished - HEENT HEENT: Atraumatic, Moist mucous membranes - Neck Neck: Supple, no meningeal sign - Cardiac Cardiac: RRR, No murmur, Strong equal pulses - Respiratory Respiratory: No respiratory distress, Clear bilaterally - Abdomen Abdomen: Soft, Non distended, Other (Protuberant abdomen; Right-sided abdominal tenderness to palpation, no rebound, no guarding). No: Normal bowel sounds (Hypoactive bowel sounds) - Back Back: No CVA TTP - Derm Derm: Warm and dry - Extremities Extremities: No calf tenderness / cord - Neuro Neuro: Normal speech Results - Vitals Vitals: Vital Signs - 24 hr 11/18/21 11/18/21 11/19/21 23:31 23:34 01:34 Temperature 36.1 C L 36.1 C L 36.5 C Heart Rate 116 H 116 H 96 Respiratory 18 18 18 Rate Blood Pressure 147/78 H 147/78 H 140/53 H O2 Saturation 95 95 96 Oxygen O2 Source Room air - Labs Labs: Laboratory Tests 11/19/21 11/19/21 11/19/21 00:21 00:21 00:21 WBC 11.4 H RBC 4.76 Hgb 13.0 Hct 42.1 MCV 88.4 MCH 27.3 MCHC 30.9 L RDW 15.1 H Plt Count 246 MPV 9.2 Neut # (Auto) 9.7 H Lymph # (Auto) 0.9 L [place] # (Auto) 0.6 Eos # (Auto) 0.2 Baso # (Auto) 0.0 Absolute Nucleated RBC 0.00 Nucleated RBC % 0.0 PT 12.4 INR 1.1 Sodium 142 Potassium 4.7 Chloride 107 Carbon Dioxide 25 Anion Gap 10.0 BUN 35 H Creatinine 1.6 H Estimated GFR (MDRD) 31 L Glucose 171 H Calcium 9.4 Total Bilirubin 0.5 AST 16 ALT 16 Alkaline Phosphatase 69 Total Protein 7.9 Albumin 3.7 Globulin 4.2 Albumin/Globulin Ratio 0.9 L Lipase 26 PD MEDICAL DECISION MAKING - ED course Complexity details: reviewed results, re-evaluated patient, d/w patient ED course: Patient presenting for evaluation of lower abdominal pain. Labs reviewed without significant findings.CT scan with constipation and no other significant findings. Patient did have improvement after an enema. She is ambulatory at discharge.She is aware of need for follow-up regarding her INR as well as incidental findings on CT scan. 0200 - Patient resting comfortably. Reviewed results of CT scan as well as labs. Reviewed Findings of possible gastric diverticulum and need for additional imaging as an outpatient. Also reviewed finding from Radiologist re garding possible infiltrate suggesting pneumonia. Patient denies fever, cough, difficulty breathing. She has no symptoms to suggest pneumonia. Patient would like to try an enema here.Patient also aware that her INR is subtherapeutic and discussed recommendations to add additional 1/2 dose tomorrow. 0247 - Patient had good bowel movement after enema and is feeling much better. Departure - Departure Disposition: Home, Self Care Clinical Impression: Constipation Qualifiers: Constipation type: unspecified constipation type Qualified Code(s): K59.00 - Constipation, unspecified Condition: Stable Instructions: ED Constipation Comments: You were evaluated for abdominal pain and nausea. Your labs were reviewed without significant findings other than your warfarin level is too low. Please take your doseFor today when you get home. I would recommend taking your normal dose tomorrow and additional half a dose.Please call your plasma processing technician on Saturday for recheck of your warfarin Level. Your CT scan showed constipation as well as The following finding : There is a 2.9 x 41 cm oval-shaped soft tissue density posterior to the greater curvature of the stomach, suspicious for a gastric diverticulum. Recommend upper GI series for further evaluation. Please review this result with your primary care doctor.Please return to the emergency department if your symptoms recur or you have any new symptoms such as cough, difficulty breathing, fever that concerns you. Discharge Date/Time: 11/19/21 03:00
[2021-11-19 00:35] LABS: INR 1.1 (0.8-1.2); PT - PROTHROMBIN TIME 12.4 secs (9.9-12.6)
[2021-11-19 00:42] LABS: ALBUMIN 3.7 g/dL (3.2-5.5); ALBUMIN/GLOBULIN RATIO 0.9 (1.0-2.2); BILIRUBIN,TOTAL 0.5 mg/dL (0.2-1.0); CALCIUM 9.4 mg/dL (8.5-10.3); CREATININE 1.6 mg/dL (0.4-1.0); POTASSIUM 4.7 mmol/L (3.5-5.0); TOTAL PROTEIN 7.9 g/dL (6.7-8.2)
--- NOTE | 2021-11-19 01:24 | CT Report ---
PROCEDURE: Abdomen/Pelvis WO INDICATIONS: R sided abdominal pain/decreased BM/nausea TECHNIQUE: Noncontrast 5 mm thick sections acquired from the diaphragms to the symphysis. 5 mm coronal and sagi ttal reformats were then performed. For radiation dose reduction, the following was used: automated exposure control, adjustment of mA and/or kV according to patient size. COMPARISON: None. FINDINGS: Image quality: Excellent. ABDOMEN: Lung bases: Mild bibasilar infiltrates. Heart size is normal. Trace pericardial effusion. There is a aortic valve prosthesis. Tiny hiatal hernia. Solid organs: Liver and spleen are normal in size. Gallbladder is normal Pancreas is normal in con tours. No adrenal nodules. Kidneys are normal in size, without hydronephrosis or nephrolithiasis. There is a 5.5 x 6.7 x 4.1 cm simple appearance cyst in right kidney. Suspect parapelvic cyst in left kidney. Peritoneum and bowel: There is a 2.9 x 4.1 cm oval-shaped soft tissue density posterior to the great er curvature of the stomach. Unenhanced bowel loops demonstrate normal wall thickness and caliber. N o free fluid or air. There is a moderate amount of stool in colon. Nodes and vessels: No retroperitoneal or mesenteric adenopathy by size criteria. Aorta and inferior vena cava are normal in caliber. Moderate atherosclerosis. Miscellaneous: No ventral hernias. PELVIS: Genitourinary: Uterus and ovaries are unremarkable. No pathological free fluid in the cul-de-sac or adnexa. Bladder wall thickness is normal. Miscellaneous: No inguinal hernias or adenopathy. Bones: No suspicious bony lesions. No vertebral body compression fractures. There are severe degen erative changes in lumbar spine. IMPRESSION: 1. No acute abnormalities in abdomen or pelvis. 2. Bilateral renal cysts. 3. There is a 2.9 x 41 cm oval-shaped soft tissue density posterior to the greater curvature of the s tomach, suspicious for a gastric diverticulum. Recommend upper GI series for further evaluation. 4. A moderate amount of stool in colon. 5. Mild bibasilar infiltrates suspicious for pneumonia. Reviewed by: Chantal Burnette MD on 11/19/2021 1:28 AM PDT Approved by: Chantal Burnette MD on 11/19/2021 1:28 AM PDT Station ID: [id number]
[2021-11-19 01:52] VITALS: BP 140/53
[2021-11-19] MEDS ORDERED: MINERAL OIL ENEMA 133 ML BOTTLE RC ONE (02:00)
== END 2021-11-19 03:00 | disposition home or self-care (01) ==
LOC: ED 23:27
DX: K59.00 Constipation, unspecified (principal)
CPT/HCPCS: 36415; 74176; 80053; 83690; 85025; 85610; 99284; A9270

== ENCOUNTER 2021-11-23 00:16 | Outpatient (CLI) | payer MEDICARE | END 2021-11-23 00:17 | disposition left against medical advice (07) | LOC: EMS 00:16 | DX: R10.31 Right lower quadrant pain (principal) ==

== ENCOUNTER 2021-12-09 18:55 | Outpatient (CLI) | payer MEDICARE | END 2021-12-09 18:56 | disposition left against medical advice (07) | LOC: EMS 18:55 | DX: M54.50 Low back pain, unspecified (principal) ==

== ENCOUNTER 2021-12-11 02:51 | Outpatient (CLI) | payer MEDICARE | END 2021-12-11 02:52 | disposition critical access hospital (66) | LOC: EMS 02:51 | DX: M54.50 Low back pain, unspecified (principal); R20.0 Anesthesia of skin; R30.9 Painful micturition, unspecified | CPT/HCPCS: A0425; A0429 ==

== ENCOUNTER 2021-12-11 03:09 | Emergency (ER) | payer MEDICARE ==
--- NOTE | 2021-12-11 03:37 | ED Physician Documentation ---
PD HPI ABD PAIN - Stated complaint Stated Complaint: RIGHT SIDE PAIN, NAUSEA - Chief complaint Chief Complaint: Ext Problem - History obtained from History obtained from: Patient - History of Present Illness Timing - onset: Today Timing - details: Gradual onset Pain level now: 6 Quality: Pain, Other (burning) Location: RLQ Radiation: Other (right anterolateral thigh) Improved by: Other (no ameliorating factors) Worsened by: Other (no exacerbating factors) Associated symptoms: Nausea. No: Fever, Vomiting, Diarrhea, Constipation, Melena, Hematochezia, Dysuria, Hematuria Recently seen: Emergency Dept (T+R earlier this month from this ED for similar symptoms, constipation suspected) Review of Systems Constitutional: reports: Reviewed and negative Cardiac: reports: Reviewed and negative Respiratory: reports: Reviewed and negative GI: reports: Abdominal Pain, Nausea. denies: Vomiting, Constipation, Diarrhea, Hematemesis, Bloody / black stool : denies: Dysuria, Frequency Skin: denies: Rash Musculoskeletal: reports: Extremity pain (right anterolateral thigh (burning pain)) PD PAST MEDICAL HISTORY - Past Medical History Cardiovascular: None Respiratory: None Endocrine/Autoimmune: None GI: None : Incontinence, Chronic bladder infection, Other HEENT: Chronic vision loss Psych: Anxiety Musculoskeletal: Osteoarthritis Derm: None, Other - Past Surgical History Past Surgical History: Yes General: Appendectomy, Colonoscopy HEENT: Cataracts, Tonsil/Adenoidectomy - Present Medications Home Medications: Ambulatory Orders Medication Instructions Recorded Confirmed Aspirin [Children's Aspirin] 81 mg PO DAILY 09/03/13 12/11/21 Lorazepam [Ativan] 1 mg PO TID PRN #15 tablet 02/13/19 12/11/21 Gabapentin [Neurontin] 200 mg PO TID #100 cap 12/11/21 Rosuvastatin Calcium [Crestor] 5 mg PO DAILY 12/11/21 12/11/21 buPROPion [Wellbutrin Sr] 100 mg PO DAILY 12/11/21 12/11/21 - Allergies Allergies/Adverse Reactions: Allergies Allergy/AdvReac Type Severity Reaction Status Date / Time ondansetron HCl * Allergy Rash Verified 12/11/21 03:20 [From Zofran (as hydrochloride)] Sulfa (Sulfonamide AdvReac Unknown Nausea Verified 12/11/21 03:20 Antibiotics) - Social History Does the pt smoke?: No Smoking Status: Never smoker Does the pt drink ETOH?: No Does the pt have substance abuse?: No - Immunizations Immunizations are current?: Yes - POLST Patient has POLST: No POLST Status: Full Code PD ED PE NORMAL - Vitals Vital signs reviewed: Yes - General General: Alert and oriented X 3, No acute distress, Well developed/nourished - Cardiac Cardiac: RRR - Respiratory Respiratory: No respiratory distress, Clear bilaterally - Abdomen Abdomen: Normal bowel sounds, Soft, Non distended, Other (TTP RLQ without rebound or guarding) - Back Back: No CVA TTP - Derm Derm: Normal color, Warm and dry, No rash - Extremities Extremities: No edema Results - Vitals Vitals: Oxygen O2 Source Room air - Labs Labs: Laboratory Tests 12/11/21 12/11/21 04:38 04:38 WBC 6.5 RBC 4.66 Hgb 12.8 Hct 41.0 MCV 88.0 MCH 27.5 MCHC 31.2 L RDW 15.3 H Plt Count 251 MPV 9.0 Neut # (Auto) 4.7 Lymph # (Auto) 1.0 L [place] # (Auto) 0.6 Eos # (Auto) 0.2 Baso # (Auto) 0.0 Absolute Nucleated RBC 0.00 Nucleated RBC % 0.0 Sodium 140 Potassium 4.6 Chloride 105 Carbon Dioxide 28 Anion Gap 7.0 BUN 25 H Creatinine 1.5 H Estimated GFR (MDRD) 34 L Glucose 133 H Calcium 9.3 Total Bilirubin 0.5 AST 18 ALT 16 Alkaline Phosphatase 66 Total Protein 7.5 Albumin 3.6 Globulin 3.9 Albumin/Globulin Ratio 0.9 L Lipase 30 - Rads (name of study) CT A/P with PO contrast Radiology: Prelim report reviewed, See rad report PD MEDICAL DECISION MAKING - ED course Complexity details: reviewed old records, reviewed results, re-evaluated julee sanches, considered differential, d/w patient ED course: c/o RLQ pain radiating to right anterolateral thigh . She has mild TTP RLQ along old surgical scar (appendectomy). She describes the thigh pain as burning and uncomfortable paresthesias with the RLQ pain having a different but nondescript quality. No concerning findings on blood tests (mildly elevated bun, creatinine that are comparable to previous results). CT A/P with PO contrast does not reveal etiology of symptoms; gastric diverticulum noted without evidence of inflammation, and this finding was on recent/previous CT A/P. Unclear cause of her pain although the location and description of her right thigh symptoms are suggestive of nerve impingement such as lateral cutaneous impingement. Given 2mg morphine, 15mg toradol, and 100mg gabapentin in ED and she reports significant improvement with this. Rx for gabapentin provided. Results discussed, follow up advised, return precautions discussed Departure - Departure Disposition: 01 Home, Self Care Clinical Impression: Meralgia paresthetica of right side Condition: Good Instructions: ED Paraesthesias Follow-Up: Mago Baldwin PA-C [Primary Care Provider] - Prescriptions: Gabapentin [Neurontin] 200 mg PO TID #100 cap Comments: There were no concerning findings on tonight's tests. The cause of your symptoms is not apparent based on these tests. As we discussed, some of your symptoms (the thigh pain, burning, and numbness) might be due to impingement on a nerve; this is called meralgia paresthetica or lateral femoral cutaneous nerve entrapment. This is not a diagnosis that can be demonstrated on tests and thus is only a suspected diagnosis. It typically will resolve over time, but a prescription for gabapentin has been provided (electronically submitted to [facility] pharmacy in [place]). This medication sometimes helps with pain due to nerve impingement. Follow up with your primary care provider, next available appointment. THE GABAPENTIN SHOULD BE TAKEN FOLLOWS: ONE TABLET BY MOUTH TODAY AT NOON AND AGAIN AT 7 pm. STARTING TOMORROW, TAKE TWO TABLETS THREE TIMES PER DAY. The prescription should last a little more than two weeks. If your primary care provider does not write for a longer course of this medication, you should taper back down to one tablet three times per day for the last two days. Discharge Date/Time: 12/11/21 07:59
[2021-12-11 04:45] LABS: BASOPHILS % (AUTO) 0.6 %; EOSINOPHILS # (AUTO) 0.2 10^3/uL (0.0-0.7); EOSINOPHILS % (AUTO) 2.9 %; HGB - HEMOGLOBIN 12.8 g/dL (12.0-16.0); LYMPHOCYTES % (AUTO) 15.5 %; MEAN CORPUSCULAR HEMOGLOBIN 27.5 pg (27.0-31.0); MEAN CORPUSCULAR HGB CONC 31.2 g/dL (32.0-36.0); MONOCYTES # (AUTO) 0.6 10^3/uL (0.0-1.0); MONOCYTES % (AUTO) 8.6 %; NEUTROPHILS # (AUTO) 4.7 10^3/uL (1.5-6.6); NEUTROPHILS % (AUTO) 72.2 %; PLT - PLATELET COUNT 251 10^3/uL (130-450); RED BLOOD COUNT 4.66 10^6/uL (4.20-5.40); RED CELL DISTRIBUTION WIDTH 15.3 % (12.0-15.0); WHITE BLOOD COUNT 6.5 x10^3/uL (4.8-10.8)
[2021-12-11] MEDS ORDERED: KETOROLAC 15 MG/ML VIAL IVP STA (04:52)
[2021-12-11] MEDS ORDERED: MORPHINE 2 MG/ML CARPUJECT IVP STA (04:52)
[2021-12-11] MEDS ORDERED: GABAPENTIN 100 MG CAPSULE PO STA (04:52)
[2021-12-11 05:00] LABS: ALBUMIN 3.6 g/dL (3.2-5.5); ALBUMIN/GLOBULIN RATIO 0.9 (1.0-2.2); BILIRUBIN,TOTAL 0.5 mg/dL (0.2-1.0); CALCIUM 9.3 mg/dL (8.5-10.3); CREATININE 1.5 mg/dL (0.4-1.0); POTASSIUM 4.6 mmol/L (3.5-5.0); TOTAL PROTEIN 7.5 g/dL (6.7-8.2)
[2021-12-11] MEDS ORDERED: DIATR MEGLU/DIATRIZOATE SODIUM 120 ML BOTTLE PO ONE (05:13)
[2021-12-11 06:29] VITALS: BP 150/74
--- NOTE | 2021-12-11 10:52 | CT Report ---
PROCEDURE: Abdomen/Pelvis WO INDICATIONS: RLQ abd. pain TECHNIQUE: Noncontrast 5 mm thick sections acquired from the diaphragms to the symphysis. 5 mm coronal and sagi ttal reformats were then performed. For radiation dose reduction, the following was used: automated exposure control, adjustment of mA and/or kV according to patient size. COMPARISON: CT abdomen and pelvis without, 11/19/2021. FINDINGS: Image quality: Excellent. ABDOMEN: Lung bases: Mild bibasilar infiltrates. Heart size is normal. There is a aortic valve prosthesis. S mall hiatal hernia. Solid organs: Mild hepatic steatosis. Liver and spleen are normal in size. Gallbladder is normal P ancreas is normal in contours. No adrenal nodules. Kidneys are normal in size, without hydronephros is or nephrolithiasis. Bilateral renal cysts are present. There is a 5.7 cm arising from the lateral cortex of the right kidney. Small parapelvic cysts are suspected in left kidney. Mild nonspecific aurora ateral perinephric stranding. 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 Unenhanced bowel loops demonstrate normal wall thickness and caliber. Appendix is definitiv yao identified. No inflammatory changes in the right lower quadrant to suggest acute appendicitis. No free fluid or air. Nodes and vessels: No retroperitoneal or mesenteric adenopathy by size criteria. Aorta and inferior vena cava are normal in caliber. Miscellaneous: No ventral hernias. PELVIS: Genitourinary: Bladder wall thickness is normal. Miscellaneous: No inguinal hernias or adenopathy. Bones: No suspicious bony lesions. No vertebral body compression fractures. Severe degenerative dis c and facet disease in lumbar spine. IMPRESSION: 1. No acute abnormalities in abdomen or pelvis. 2. Possible right lower quadrant pain is not identified. 3. Gastric diverticulum. 4. Bilateral renal cysts. 5. Mild bibasilar infiltrates. No significant discrepancy with the preliminary interpretation. Reviewed by: Chantal Burnette MD on 12/11/2021 10:51 AM PDT Approved by: Chantal Burnette MD on 12/11/2021 10:51 AM PDT Station ID: [id number]
== END 2021-12-11 07:59 | disposition home or self-care (01) ==
LOC: EDBD → ED 03:09 → SUPCPDRO 03:09 → ED 07:59
DX: G57.11 Meralgia paresthetica, right lower limb (principal)
CPT/HCPCS: 36415; 74176; 80053; 83690; 85025; 93005; 96374; 99282; 99284; A9270; Q9963

== ENCOUNTER 2022-01-24 09:22 | Day surgery (SDC) | payer MEDICARE ==
[2022-01-24] MEDS ORDERED: LACTATED RINGERS 1,000 ML IV ONE (09:48)
--- NOTE | 2022-01-24 10:43 | ANESTHESIA ---
Pre-Anesthesia VS, & Labs - Diagnosis COLONOSCOPY SCREENING - Procedure COLONOSCOPY Vital Signs: Temp Pulse Resp BP Pulse Ox 37.2 C 105 H 15 155/104 H 98 01/24/22 09:49 01/24/22 09:49 01/24/22 09:49 01/24/22 09:49 01/24/22 09:49 Height: 5 ft 7 in Weight (kg): 117.93 kg Body Mass Index: 40.7 BMI Classification: Morbidly Obese - NPO >8 hours - Is Patient ?: No Home Medications and Allergies Home Medications: Ambulatory Orders Colchicine 0.6 mg PO ONCE PRN 01/19/22 Fluoxetine HCl [Prozac] 40 mg PO DAILY 01/19/22 Aspirin [Children's Aspirin] 81 mg PO DAILY 09/03/13 Rosuvastatin Calcium [Crestor] 5 mg PO DAILY 12/11/21 buPROPion [Wellbutrin Sr] 100 mg PO DAILY 12/11/21 Colchicine 0.6 mg PO ONCE PRN 01/19/22 Fluoxetine HCl [Prozac] 40 mg PO DAILY 01/19/22 Allergies/Adverse Reactions: Allergies Allergy/AdvReac Type Severity Reaction Status Date / Time ondansetron HCl * Allergy Hives Verified 01/24/22 09:55 [From Zofran (as hydrochloride)] Sulfa (Sulfonamide AdvReac Unknown Nausea Verified 01/24/22 09:55 Antibiotics) Anes History & Medical History - Anesthetic History Anesthesia Complications: reports: No previous complications Family history of Anesthesia Complications: Denies Family history of Malignant Hyperthermia: Denies - Medical History Cardiovascular: reports: Valve disorder (TAVR 2019) Pulmonary: reports: None Gastrointestinal: reports: GERD (recent EGD in December 2021), Colon polyps Urinary: reports: Incontinence, Chronic bladder infection Musculoskeletal: reports: Osteoarthritis, Gout, Other (DJD lumbar spine) Endocrine/Autoimmune: reports: None Skin: reports: Rosacea Smoking Status: Never smoker Psychosocial: reports: Depression, Anxiety History of Cancer?: No - Surgical History General: reports: Appendectomy, Colonoscopy Eyes Ears Nose Throat (EENT): reports: Cataracts, Tonsil/Adenoidectomy Cardiothoracic: reports: Valve replacement Exam General: Alert, Oriented x3, Cooperative, No acute distress, Other (Anxious) Dental: WNL Mouth Openin Fingerbreadth Neck Mobility: Normal Mallampati classification: II Thyromental Distance: 4-6 cm Respiratory: Lungs clear Cardiovascular: Regular rate Mental/Cognitive Status: Alert/Oriented X3, Normal for patient Plan Anesthesia Type: General Consent for Procedure(s) Verified and Reviewed: Yes Code Status: Attempt Resuscitation ASA classification: 3-Severe systemic disease Is this case an emergency?: No
[2022-01-24] MEDS ORDERED: PROPOFOL 200 MG/20 ML VIAL IVP ONE ×2 (11:40→12:25)
[2022-01-24] MEDS ORDERED: MIDAZOLAM 2 MG/2 ML VIAL ONE (11:40)
[2022-01-24] MEDS ORDERED: LACTATED RINGERS 400 ML IV ONE (12:19)
[2022-01-24 13:15] VITALS: BP 127/78
--- NOTE | 2022-01-24 13:27 | ANESTHESIA POST OP EVALUATION ---
Anesthesia Post Eval - Post Anesthesia Eval Vitals: Last Vital Signs Temp 36.2 C L 01/24/22 13:00 Pulse 78 01/24/22 13:00 Resp 16 01/24/22 13:00 BP 127/78 01/24/22 13:00 Pulse Ox 98 01/24/22 13:00 CV Function Including HR & BP: Stable Pain Control: Satisfactory Nausea & Vomiting: Negative Mental Status: Baseline Respiratory Status: Airway Patent Hydration Status: Satisfactory Anesthesia Complications: None
== END 2022-01-24 09:23 | disposition home or self-care (01) ==
LOC: SDS 09:22
PROVIDERS: ATTEND Surgery
PROC: 0DBK8ZZ Excision of Ascending Colon, Via Natural or Artificial Opening Endoscopic (ICD-10-PCS; 2022-01-24)
PROC: 0DBL8ZZ Excision of Transverse Colon, Via Natural or Artificial Opening Endoscopic (ICD-10-PCS; 2022-01-24)
PROC: 0DBP8ZZ Excision of Rectum, Via Natural or Artificial Opening Endoscopic (ICD-10-PCS; 2022-01-24)
PROC: 0DBM8ZZ Excision of Descending Colon, Via Natural or Artificial Opening Endoscopic (ICD-10-PCS; 2022-01-24)
PROC: 0DBH8ZZ Excision of Cecum, Via Natural or Artificial Opening Endoscopic (ICD-10-PCS; principal; 2022-01-24 10:45)
DX: Z12.11 Encounter for screening for malignant neoplasm of colon (principal); D12.3 Benign neoplasm of transverse colon; D12.0 Benign neoplasm of cecum; D12.2 Benign neoplasm of ascending colon; D12.4 Benign neoplasm of descending colon; K64.8 Other hemorrhoids; K64.4 Residual hemorrhoidal skin tags; E66.01 Morbid (severe) obesity due to excess calories; Z68.41 Body mass index [BMI] 40.0-44.9, adult; Z87.891 Personal history of nicotine dependence
CPT/HCPCS: 45380; 45385; J7120

== ENCOUNTER 2022-02-15 08:00 | Outpatient (CLI) | payer MEDICARE | END 2022-02-15 23:59 | disposition home or self-care (01) | LOC: LAB 08:00 | PROVIDERS: ATTEND Physician Assistant Medical | DX: U07.1 COVID-19 (principal) ==

== ENCOUNTER 2022-02-26 18:08 | Outpatient (CLI) | payer MEDICARE | END 2022-02-26 18:09 | disposition critical access hospital (66) | LOC: EMS 18:08 | DX: F32.A Depression, unspecified (principal); F41.9 Anxiety disorder, unspecified; Z63.4 Disappearance and death of family member | CPT/HCPCS: A0425; A0429 ==

== ENCOUNTER 2022-02-26 18:27 | Emergency (ER) | payer MEDICARE ==
[2022-02-26] MEDS ORDERED: KETAMINE 40 MG in SODIUM CHLORIDE 0.9% 100ML 100 ML IV STA (18:58)
--- NOTE | 2022-02-26 19:02 | ED Physician Documentation ---
History of Present Illness - Stated complaint Stated Complaint: DEPRESSION - Chief complaint Chief Complaint: MHE - History obtained from History obtained from: Patient - History of Present Illness Pain level max: 0 Pain level now: 0 - Additonal information Additional information: Patient is a 76-year-old female who presents to the emergency department complaining of increasing depression over the past several months. She stopped taking her antidepressants for a while and then was restarted on them last week by her doctor. She has been feeling increasingly anxious. She is not suicidal or homicidal. She has a referral in for a new psychiatrist. She has a counselor that she used to see but has not tried to make a new appointment. She states she is just feeling tired today. She is tearful Review of Systems Constitutional: denies: Fever, Chills Respiratory: denies: Cough GI: denies: Nausea, Vomiting, Diarrhea Skin: denies: Rash Musculoskeletal: denies: Neck pain, Back pain Neurologic: denies: Headache, Head injury, LOC PD PAST MEDICAL HISTORY - Past Medical History Cardiovascular: Valve disorder Respiratory: None Neuro: Seizure disorder Endocrine/Autoimmune: None GI: GERD, Colon polyps : Incontinence, Chronic bladder infection HEENT: Chronic vision loss Psych: Depression, Anxiety Musculoskeletal: Osteoarthritis, Gout, Other Derm: Rosacea - Past Surgical History Past Surgical History: Yes General: Appendectomy, Colonoscopy Cardiovascular: Valve replacement HEENT: Cataracts, Tonsil/Adenoidectomy - Present Medications Home Medications: Ambulatory Orders Medication Instructions Recorded Confirmed Aspirin [Children's Aspirin] 81 mg PO DAILY 09/03/13 02/26/22 Rosuvastatin Calcium [Crestor] 5 mg PO DAILY 12/11/21 02/26/22 buPROPion [Wellbutrin Sr] 100 mg PO DAILY 12/11/21 02/26/22 Fluoxetine HCl [Prozac] 40 mg PO DAILY 01/19/22 02/26/22 - Allergies Allergies/Adverse Reactions: Allergies Allergy/AdvReac Type Severity Reaction Status Date / Time ondansetron HCl * Allergy Hives Verified 02/26/22 18:53 [From Zofran (as hydrochloride)] Sulfa (Sulfonamide AdvReac Unknown Nausea Verified 02/26/22 18:53 Antibiotics) - Social History Does the pt smoke?: No Smoking Status: Never smoker Does the pt drink ETOH?: No Does the pt have substance abuse?: No - Immunizations Immunizations are current?: Yes - POLST Patient has POLST: No POLST Status: Full Code PD ED PE NORMAL - Vitals Vital signs reviewed: Yes - General General: Alert and oriented X 3, Other (tearful, anxious) - HEENT HEENT: PERRL, Moist mucous membranes - Neck Neck: Supple, no meningeal sign - Cardiac Cardiac: RRR, Strong equal pulses - Respiratory Respiratory: No respiratory distress, Clear bilaterally - Abdomen Abdomen: Soft, Non tender, Non distended - Derm Derm: Warm and dry - Neuro Neuro: Alert and oriented X 3 - Psych Psych: Normal mood, Normal affect Results - Vitals Vitals: Vital Signs - 24 hr 02/26/22 02/26/22 02/26/22 18:46 20:19 21:04 Temperature 36.7 C 36.6 C Heart Rate 102 H 81 80 Respiratory 16 13 15 Rate Blood Pressure 131/79 H 144/82 H 138/81 H O2 Saturation 95 99 99 Oxygen O2 Source Room air PD MEDICAL DECISION MAKING - ED course Complexity details: re-evaluated patient, considered differential, d/w patient ED course: 76-year-old female with ongoing anxiety and depression. She is recently started back on her medications. She is not suicidal or homicidal. She is able to contract for safety. 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 We elected to attempt ketamine. She did receive an infusion of ketamine. Her symptoms improved. She is feeling better. She understands that she will need ongoing counseling, therapy and likely adjustment of her medications. Patient was comfortable going home at this time. Her friend is coming to pick her up. Patient was given crisis line information for home. Patient counseled regarding signs and symptoms for which I believe and urgent re-evaluation would be necessary. Patient with good understanding of and agreement to plan and is comfortable going home at this time This document was made in part using voice recognition software. While efforts are made to proofread this document, sound alike and grammatical errors may occur. Departure - Departure Disposition: 01 Home, Self Care Clinical Impression: Anxiety Depression Qualifiers: Depression Type: unspecified Qualified Code(s): F32.A - Depression, unspecified Condition: Good Instructions: ED Depression, ED Panic Attack Follow-Up: Mago Baldwin PA-C [Primary Care Provider] - Tomorrow Comments: Please follow-up with your doctor tomorrow. Please return if you worsen. You are not to drive tonight. You should contact your counselor tomorrow as well. Crisis Line and is available to talk to someone [email or web address] is also available to chat with someone online if you prefer. There are also many resources on this website and apps for your phone to help with your mental health You can also text the word START to [phone] to chat with someome via text. Discharge Date/Time: 02/26/22 21:34
[2022-02-26] MEDS ORDERED: KETAMINE 500 MG/10 ML VIAL ONE (19:50)
[2022-02-26 21:05] VITALS: BP 138/81
== END 2022-02-26 21:34 | disposition home or self-care (01) ==
LOC: EDUNIT# → ED 18:27
DX: F32.A Depression, unspecified (principal); F41.9 Anxiety disorder, unspecified
CPT/HCPCS: 96365; 99283

== ENCOUNTER 2022-04-17 08:19 | Outpatient (CLI) | payer MEDICARE ==
[2022-04-17 12:00] LABS: BASOPHILS % (AUTO) 0.5 %; EOSINOPHILS # (AUTO) 0.3 10^3/uL (0.0-0.7); EOSINOPHILS % (AUTO) 4.2 %; HCT - HEMATOCRIT 43.5 % (37.0-47.0); HGB - HEMOGLOBIN 13.3 g/dL (12.0-16.0); LYMPHOCYTES # (AUTO) 1.4 10^3/uL (1.5-3.5); LYMPHOCYTES % (AUTO) 22.8 %; MEAN CORPUSCULAR HGB CONC 30.6 g/dL (32.0-36.0); MEAN CORPUSCULAR VOLUME 88.4 fL (81.0-99.0); MEAN PLATELET VOLUME 9.6 fL (7.9-10.8); MONOCYTES # (AUTO) 0.5 10^3/uL (0.0-1.0); MONOCYTES % (AUTO) 8.4 %; NEUTROPHILS # (AUTO) 3.8 10^3/uL (1.5-6.6); NEUTROPHILS % (AUTO) 63.8 %; PLT - PLATELET COUNT 264 10^3/uL (130-450); RED BLOOD COUNT 4.92 10^6/uL (4.20-5.40); RED CELL DISTRIBUTION WIDTH 15.8 % (12.0-15.0); WHITE BLOOD COUNT 5.9 x10^3/uL (4.8-10.8)
[2022-04-17 12:24] LABS: ALBUMIN 3.7 g/dL (3.2-5.5); ALBUMIN/GLOBULIN RATIO 0.9 (1.0-2.2); ALKALINE PHOSPHATASE 68 IU/L (42-121); ALT ALANINE AMINOTRANSFERASE 23 IU/L (10-60); AST ASPARTATE AMINOTRANSFERASE 23 IU/L (10-42); BILIRUBIN,TOTAL 0.5 mg/dL (0.2-1.0); BUN - BLOOD UREA NITROGEN 32 mg/dL (6-20); CALCIUM 9.2 mg/dL (8.5-10.3); CARBON DIOXIDE - CO2 25 mmol/L (21-32); CHLORIDE 105 mmol/L (101-111); CHOL/HDL RATIO 2.7 (<4.4); CHOLESTEROL 122 mg/dL; CREATININE 1.3 mg/dL (0.4-1.0); GFR - MDRD 40 (>89); GLUCOSE 122 mg/dL (70-100); HDL CHOLESTEROL 46 mg/dL; LDL CHOLESTEROL,CALCULATED 53 mg/dL; LDL/HDL RATIO 1.2 (<4.4); POTASSIUM 4.1 mmol/L (3.5-5.0); SODIUM 141 mmol/L (135-145); TOTAL PROTEIN 7.6 g/dL (6.7-8.2); TRIGLYCERIDES 114 mg/dL; VLDL CHOLESTEROL 23 mg/dL
== END 2022-04-17 08:20 | disposition home or self-care (01) ==
LOC: LAB.N 08:19
PROVIDERS: ATTEND Family Medicine
DX: I10 Essential (primary) hypertension (principal); R30.0 Dysuria; E78.5 Hyperlipidemia, unspecified
CPT/HCPCS: 36415; 80053; 80061; 83721; 85025; 87077; 87086; 87181

== ENCOUNTER 2022-04-24 03:32 | Outpatient (CLI) | payer MEDICARE | END 2022-04-24 23:59 | disposition critical access hospital (66) | LOC: EMS 03:32 | DX: R10.2 Pelvic and perineal pain (principal); R10.31 Right lower quadrant pain; R10.32 Left lower quadrant pain; R19.7 Diarrhea, unspecified | CPT/HCPCS: A0425; A0429 ==

== ENCOUNTER 2022-04-24 03:54 | Emergency (ER) | payer MEDICARE ==
--- NOTE | 2022-04-24 04:58 | ED Physician Documentation ---
History of Present Illness - Stated complaint Stated Complaint: ABD PX - Chief complaint Chief Complaint: Abd Pain - History obtained from History obtained from: Patient - Additonal information Additional information: The patient comes to the emergency department chief complaint of abdominal cramping and diarrhea that started this evening. The patient states she just had the 1 episode of diarrhea, which consisted of a watery component with some chunks of more solid stool in it. She states that she has been on antibiotics for urinary tract infection for the last 5 days, but has not had any issue until this evening. She is not sure if it is the antibiotics. She does not know if she was exposed to anybody who has been sick. The patient's main concern tonight is that she thought she might of seeing worms in her stool. The patient states she has brought to pieces of what she saw in her stool, as well as a sample of the stool itself in case it is needed. She denies any recent weight loss. No vague intermittent abdominal pain over recent days to weeks. No blood in her stool. No perianal itching at night. The patient does have a dog but the dog is not known to have worms. The patient denies any exotic travel to developing countries. No fevers or chills. No jaundice. No other complaints at this time. Review of Systems Ten Systems: 10 systems reviewed and negative Constitutional: reports: Reviewed and negative Eyes: reports: Reviewed and negative Ears: reports: Reviewed and negative Nose: reports: Reviewed and negative Throat: reports: Reviewed and negative Cardiac: reports: Reviewed and negative Respiratory: reports: Reviewed and negative GI: reports: Abdominal Pain (Cramping), Diarrhea, Reviewed and negative : reports: Reviewed and negative Skin: reports: Reviewed and negative Musculoskeletal: reports: Reviewed and negative Neurologic: reports: Reviewed and negative Psychiatric: reports: Reviewed and negative Endocrine: reports: Reviewed and negative Immunocompromised: reports: Reviewed and negative PD PAST MEDICAL HISTORY - Past Medical History Past Medical History: Yes Cardiovascular: Valve disorder Respiratory: None Neuro: Seizure disorder Endocrine/Autoimmune: None GI: GERD, Colon polyps DIRECTOR REPORT: None : Incontinence, Chronic bladder infection HEENT: Chronic vision loss Psych: Depression, Anxiety Musculoskeletal: Osteoarthritis, Gout, Other Derm: Rosacea - Past Surgical History Past Surgical History: Yes General: Appendectomy, Colonoscopy Cardiovascular: Valve replacement HEENT: Cataracts, Tonsil/Adenoidectomy - Present Medications Home Medications: Ambulatory Orders Medication Instructions Recorded Confirmed Aspirin [Children's Aspirin] 81 mg PO DAILY 09/03/13 04/24/22 Rosuvastatin Calcium [Crestor] 5 mg PO DAILY 12/11/21 04/24/22 Fluoxetine HCl [Prozac] 40 mg PO DAILY 01/19/22 04/24/22 Buspirone HCl 5 mg PO DAILY 04/24/22 04/24/22 LORazepam [Ativan] 0.5 mg PO BID 04/24/22 04/24/22 cephALEXin [Keflex] 500 mg PO QID 04/24/22 04/24/22 clonazePAM [Klonopin] 1.5 mg PO DAILY 04/24/22 04/24/22 - Allergies Allergies/Adverse Reactions: Allergies Allergy/AdvReac Type Severity Reaction Status Date / Time ondansetron HCl * Allergy Hives Verified 04/24/22 04:03 [From Zofran (as hydrochloride)] Sulfa (Sulfonamide AdvReac Unknown Nausea Verified 04/24/22 04:03 Antibiotics) - Social History Does the pt smoke?: No Smoking Status: Never smoker Does the pt drink ETOH?: No Does the pt have substance abuse?: No - Immunizations Immunizations are current?: Yes - POLST Patient has POLST: No POLST Status: Full Code PD ED PE NORMAL - Vitals Vital signs reviewed: Yes - General General: Alert and oriented X 3, No acute distress, Well developed/nourished - HEENT HEENT: Atraumatic, PERRL, EOMI, Moist mucous membranes - Neck Neck: Supple, no meningeal sign - Cardiac Cardiac: RRR, No murmur, Strong equal pulses - Respiratory Respiratory: No respiratory distress, Clear bilaterally - Abdomen Abdomen: Soft, Non distended, Other (Mild suprapubic tenderness no rebound or guarding) - Derm Derm: Normal color, Warm and dry, No rash - Extremities Extremities: No deformity - Neuro Neuro: Alert and oriented X 3 - Psych Psych: Normal mood, Normal affect Results - Vitals Vitals: Vital Signs - 24 hr 04/24/22 04/24/22 04:03 04:10 Temperature 37.6 C Heart Rate 84 Respiratory 18 15 Rate Blood Pressure 147/70 H O2 Saturation 97 Oxygen O2 Source Room air PD MEDICAL DECISION MAKING - ED course Complexity details: considered differential, d/w patient ED course: Did view the stool that the patient had brought, as well as the 2 small yellow fragments that she was worried were worms, and I did not find any evidence of worms. I discussed with the patient that I am not sure what she saw exactly, but that if there is a question in her mind, we can send her stool to be evaluated for ova and parasites. The patient was receptive to this, though very open to the possibility that she has overreacted and panicked. She states she is very prone to this since her 2 years ago. The stools been sent. The patient will be discharged home because this test will not come back in a timely manner, but we have discussed that she will be notified if her results a re positive. We have discussed the usual indications for follow-up and return. Departure - Departure Disposition: 01 Home, Self Care Clinical Impression: Abdominal cramps Diarrhea Qualifiers: Diarrhea type: unspecified type Qualified Code(s): R19.7 - Diarrhea, unspecified Condition: Stable Instructions: ED Abdominal Pain Female Non-Specific Abdominal Pain, Diarrhea Comments: It is not clear exactly what caused your abdominal cramping and diarrhea tonight. It is possible that this is the result of having been on antibiotics for the last 5 days, as many antibiotics can cause diarrhea as a side effect. In general, although this is unpleasant, it is benign and passes when you are done with the antibiotic. Occasionally, antibiotics can cause a bacterial imbalance in the intestines which causes ongoing diarrhea after the antibiotic, and this kind has to be treated more specifically. At this time, it is best for you to finish your course of antibiotics, as prescribed, and to make sure your urinary tract infection goes away. It is also possible that the diarrhea is simply due to one of the viruses that have been going around lately. Once again, while unpleasant, this is generally a benign process which resolves itself and anywhere from a few days to week. Please be sure you drink plenty of water and eat a healthy diet until you are feeling better. As far as the possibility of worms, there are no obvious worms in your stool. Symptoms of worms can include vague abdominal pain that comes and goes for days, weight loss, and blood in the stools. It can also involve itching around the anus. In order to clear up the question of worms, your stool sample has been sent to the lab, where will be tested for worms/parasites and there eggs. This test will not come back right away, but if it does come back positive, you will be notified at home, and an antiparasitic medication will be prescribed. For further concerns, please follow-up with your primary doctor.
[2022-04-24 05:07] VITALS: BP 140/67
== END 2022-04-24 05:49 | disposition home or self-care (01) ==
LOC: EDUNIT# → ED 03:54
DX: R10.9 Unspecified abdominal pain (principal); R19.7 Diarrhea, unspecified
CPT/HCPCS: 87177; 99283; 99284

== ENCOUNTER 2022-06-06 10:29 | Outpatient (CLI) | payer MEDICARE ==
[2022-06-06 18:28] LABS: BASOPHILS % (AUTO) 0.5 %; EOSINOPHILS # (AUTO) 0.3 10^3/uL (0.0-0.7); EOSINOPHILS % (AUTO) 4.2 %; HCT - HEMATOCRIT 44.8 % (37.0-47.0); HGB - HEMOGLOBIN 13.5 g/dL (12.0-16.0); LYMPHOCYTES % (AUTO) 15.2 %; MEAN CORPUSCULAR HEMOGLOBIN 27.4 pg (27.0-31.0); MEAN CORPUSCULAR HGB CONC 30.1 g/dL (32.0-36.0); MEAN CORPUSCULAR VOLUME 90.9 fL (81.0-99.0); MEAN PLATELET VOLUME 9.7 fL (7.9-10.8); MONOCYTES # (AUTO) 0.4 10^3/uL (0.0-1.0); MONOCYTES % (AUTO) 6.2 %; NEUTROPHILS # (AUTO) 4.8 10^3/uL (1.5-6.6); NEUTROPHILS % (AUTO) 73.6 %; PLT - PLATELET COUNT 276 10^3/uL (130-450); RED BLOOD COUNT 4.93 10^6/uL (4.20-5.40); RED CELL DISTRIBUTION WIDTH 15.5 % (12.0-15.0); WHITE BLOOD COUNT 6.5 x10^3/uL (4.8-10.8)
[2022-06-06 18:40] LABS: ALBUMIN 3.7 g/dL (3.2-5.5); ALBUMIN/GLOBULIN RATIO 0.8 (1.0-2.2); BILIRUBIN,TOTAL 0.6 mg/dL (0.2-1.0); CALCIUM 9.4 mg/dL (8.5-10.3); CREATININE 1.3 mg/dL (0.4-1.0); POTASSIUM 4.4 mmol/L (3.5-5.0); TOTAL PROTEIN 8.2 g/dL (6.7-8.2)
[2022-06-06 18:51] LABS: THYROID STIMULATING HORMONE 3.03 uIU/mL (0.34-5.60)
[2022-06-06 18:59] LABS: FERRITIN 94.6 ng/mL (11.0-306.8)
[2022-06-06 19:02] LABS: FOLATE 16.06 ng/mL (5.90 - >24.8)
== END 2022-06-06 10:30 | disposition home or self-care (01) ==
LOC: LAB.N 10:29
PROVIDERS: ATTEND Psychiatry & Neurology Psychiatry
DX: R53.83 Other fatigue (principal); F43.21 Adjustment disorder with depressed mood
CPT/HCPCS: 36415; 80053; 82306; 82607; 82728; 82746; 84443; 85025; 85027

== ENCOUNTER 2022-06-13 08:00 | Outpatient (CLI) | payer MEDICARE ==
[2022-06-13 17:39] LABS: BILIRUBIN,URINE NEGATIVE (NEGATIVE); GLUCOSE, URINE (UA) NEGATIVE (NEGATIVE); KETONES,URINE (UA) NEGATIVE (NEGATIVE); LEUKOCYTE ESTERASE, URINE SMALL (NEGATIVE); NITRITE,URINE POSITIVE (NEGATIVE); OCCULT BLOOD,URINE NEGATIVE (NEGATIVE); PROTEIN,URINE NEGATIVE (NEGATIVE); UROBILINOGEN,URINE 0.2 (NORMAL) E.U./dL (NORMAL)
[2022-06-13 17:40] LABS: CLARITY,URINE HAZY (CLEAR)
[2022-06-13 18:05] LABS: BACTERIA,URINE Moderate /HPF (None Seen); RBC,URINE 0-5 /HPF (0-5); SQUAMOUS EPITHELIAL CELL,UR FEW Squamous (<= Few)
== END 2022-06-13 23:59 | disposition home or self-care (01) ==
LOC: LAB.N 08:00
PROVIDERS: ATTEND Nurse Practitioner
DX: R30.0 Dysuria (principal)
CPT/HCPCS: 81001; 87077; 87086; 87181

== ENCOUNTER 2022-08-21 14:59 | Outpatient (CLI) | payer MEDICARE | END 2022-08-21 15:00 | disposition home or self-care (01) | LOC: DI 14:59 | PROVIDERS: ATTEND Physician Assistant Medical | DX: I35.0 Nonrheumatic aortic (valve) stenosis (principal); Z95.2 Presence of prosthetic heart valve | CPT/HCPCS: 93306 ==

== ENCOUNTER 2022-09-19 08:00 | Outpatient (CLI) | payer MEDICARE | END 2022-09-19 23:59 | disposition home or self-care (01) | LOC: LAB.WCP 08:00 | PROVIDERS: ATTEND Physician Assistant Medical | DX: R30.0 Dysuria (principal) | CPT/HCPCS: 87077; 87086; 87181 ==

== ENCOUNTER 2023-01-17 10:01 | Outpatient (CLI) | payer MEDICARE ==
[2023-01-17 12:16] LABS: CALCIUM 9.8 mg/dL (8.5-10.3); CREATININE 1.3 mg/dL (0.6-1.3); POTASSIUM 4.5 mmol/L (3.5-4.5)
[2023-01-17 12:34] LABS: ESTIMATED AVERAGE GLUCOSE 117 mg/dL (70-100); HEMOGLOBIN A1c% 5.7 % (4.27-6.07)
== END 2023-01-17 10:02 | disposition home or self-care (01) ==
LOC: LAB.N 10:01
PROVIDERS: ATTEND Physician Assistant Medical
DX: R73.9 Hyperglycemia, unspecified (principal)
CPT/HCPCS: 36415; 80048; 83036

== ENCOUNTER 2023-02-28 11:24 | Outpatient (CLI) | payer MEDICARE ==
--- NOTE | 2023-02-28 13:00 | XRAY Report ---
PROCEDURE: Thoracic Spine 3 View INDICATIONS: BACK PX TECHNIQUE: 2 views of the thoracic spine were acquired. COMPARISON: None. FINDINGS: Bones: No fractures or dislocations. No suspicious bony lesions. 12 pairs of ribs are noted, and a ppear intact where visualized. Multilevel degenerative changes of the thoracic spine with disc heigh t loss, degenerative endplate changes and marginal spurring. Soft tissues: No paravertebral stripe thickening. IMPRESSION: Multilevel degenerative changes of the thoracic spine. No acute vertebral body compression deformitie s. Reviewed by: Bruce Boyce MD on 02/28/2023 12:59 PM PDT Approved by: Bruce Boyce MD on 02/28/2023 12:59 PM PDT Station ID: [id number]
--- NOTE | 2023-02-28 13:00 | XRAY Report ---
PROCEDURE: Lumbar Spine 2 View INDICATIONS: LOWER BACK PAIN,UNSPECIFIED TECHNIQUE: 2 views of the lumbar spine were acquired. COMPARISON: X-ray lumbar spine 12/22/2020. FINDINGS: Bones: 5 [id number] vertebrae are present. Straightening of normal lumbar lordosis. There is gr nini 1 anterolisthesis of L2 on L3 and L3 on L4. Minimal dextrocurvature of the lower lumbar spine. Th ere are multilevel degenerative changes of the lumbar spine with facet arthropathy and disc height lo ss with degenerative endplate changes and marginal spurring. This is most severe at L4-L5 and L5-S1. No vertebral body compression fractures. No suspicious bony lesions. Soft tissues: Overlying bowel gas pattern is normal. No suspicious soft tissue calcifications. Ath erosclerotic vascular calcifications. IMPRESSION: Multilevel degenerative changes of the lumbar spine, most severe at L4-5 and L5-S1. This is similar in appearance to prior. Reviewed by: Bruce Boyce MD on 02/28/2023 12:58 PM PDT Approved by: Bruce Boyce MD on 02/28/2023 12:58 PM PDT Station ID: [id number]
--- NOTE | 2023-02-28 13:02 | XRAY Report ---
PROCEDURE: Cervical Spine 2 View INDICATIONS: BACK PX TECHNIQUE: 3 view(s) of the cervical spine were acquired. COMPARISON: None. FINDINGS: Bones: No fractures or dislocations to the C6 level. Straightening of normal cervical lordosis. Mild anterolisthesis of C3 on C4. Multilevel degenerative changes of the cervical spine with facet and un covertebral arthropathy, disc height loss, endplate degenerative changes and spurring. The lateral m asses of C1 appear intact on the odontoid view. No suspicious bony lesions. Soft tissues: No prevertebral soft tissue swelling. IMPRESSION: Multilevel degenerative changes of the cervical spine. Reviewed by: Bruce Boyce MD on 02/28/2023 1:01 PM PDT Approved by: Bruce Boyce MD on 02/28/2023 1:01 PM PDT Station ID: [id number]
== END 2023-02-28 11:25 | disposition home or self-care (01) ==
LOC: DI 11:24
PROVIDERS: ATTEND Physician Assistant Medical
DX: M47.812 Spondylosis without myelopathy or radiculopathy, cervical region (principal); M47.814 Spondylosis without myelopathy or radiculopathy, thoracic region; M47.816 Spondylosis without myelopathy or radiculopathy, lumbar region; M47.817 Spondylosis without myelopathy or radiculopathy, lumbosacral region

== ENCOUNTER 2023-04-04 12:03 | Outpatient (CLI) | payer MEDICARE ==
[2023-04-04 12:28] LABS: HCT - HEMATOCRIT 43.5 % (37.0-47.0); HGB - HEMOGLOBIN 13.5 g/dL (12.0-16.0); MEAN CORPUSCULAR HEMOGLOBIN 27.9 pg (27.0-31.0); MEAN CORPUSCULAR VOLUME 89.9 fL (81.0-99.0); MEAN PLATELET VOLUME 9.2 fL (7.9-10.8); RED BLOOD COUNT 4.84 10^6/uL (4.20-5.40); RED CELL DISTRIBUTION WIDTH 14.4 % (12.0-15.0); WHITE BLOOD COUNT 6.1 x10^3/uL (4.8-10.8)
== END 2023-04-04 12:04 | disposition home or self-care (01) ==
LOC: LAB 12:03
PROVIDERS: ATTEND Internal Medicine Nephrology
DX: R80.9 Proteinuria, unspecified (principal); D70.9 Neutropenia, unspecified; D63.1 Anemia in chronic kidney disease
CPT/HCPCS: 36415; 82570; 84156; 85027

== ENCOUNTER 2023-04-20 09:52 | Outpatient (CLI) | payer MEDICARE ==
[2023-04-20 19:37] LABS: ALBUMIN 3.9 g/dL (3.2-5.5); ALBUMIN/GLOBULIN RATIO 1.3 (1.0-2.2); ALKALINE PHOSPHATASE 61 IU/L (42-121); ALT ALANINE AMINOTRANSFERASE 11 IU/L (10-60); AST ASPARTATE AMINOTRANSFERASE 13 IU/L (10-42); BILIRUBIN,TOTAL 0.3 mg/dL (0.2-1.0); BUN - BLOOD UREA NITROGEN 30 mg/dL (6-20); CALCIUM 9.7 mg/dL (8.5-10.3); CARBON DIOXIDE - CO2 28 mmol/L (21-32); CHLORIDE 107 mmol/L (101-111); CHOL/HDL RATIO 3.1 (<4.4); CHOLESTEROL 147 mg/dL; CREATININE 1.2 mg/dL (0.6-1.3); GFR - MDRD 43 (>89); GLUCOSE 113 mg/dL (74-104); HDL CHOLESTEROL 48 mg/dL; LDL CHOLESTEROL,CALCULATED 68 mg/dL; LDL/HDL RATIO 1.4 (<4.4); POTASSIUM 4.4 mmol/L (3.5-4.5); SODIUM 141 mmol/L (135-145); TRIGLYCERIDES 155 mg/dL (48-352); VLDL CHOLESTEROL 31 mg/dL
[2023-04-20 19:51] LABS: THYROID STIMULATING HORMONE 2.33 uIU/mL (0.34-5.60)
== END 2023-04-20 09:53 | disposition home or self-care (01) ==
LOC: LAB.N 09:52
PROVIDERS: ATTEND Physician Assistant Medical
DX: E78.5 Hyperlipidemia, unspecified (principal); R53.83 Other fatigue
CPT/HCPCS: 36415; 80053; 80061; 82607; 83721; 84443

== ENCOUNTER 2023-05-08 12:39 | Outpatient (CLI) | payer MEDICARE ==
--- NOTE | 2023-05-09 09:36 | MRI Report ---
PROCEDURE: LUMBAR SPINE WO INDICATIONS: LOW BACK PAIN TECHNIQUE: Noncontrast sagittal T1 spin echo and T2 fast echo, sagittal STIR, axial T1 and T2 fast spin echo thr ough the lumbar spine. In cases with scoliosis, additional coronal T2 fast spin echo may be performe d. COMPARISON: 02/28/2023 FINDINGS: Image quality: Excellent. Alignment and Curvature: There is normal bony alignment. Bone Marrow: Marrow is of normal overall signal. No acute vertebral body compression fractures. Spinal Cord: Conus medullaris terminates at the L1 level. Visualized cord demonstrates normal signa l and size. Paraspinous Soft Tissues: No paravertebral masses. T11-12: Diffuse disc bulge and disc space narrowing. No significant foraminal or central canal steno sis. T12-L1: No disc bulge. The foramina and central canal are patent. L1-L2: No disc bulge. The foramina and central canal are patent. L2-L3: Diffuse disc bulge and disc osteophytes with facet arthropathy bilaterally causes moderate right and moderate left foraminal stenosis. The ligamentum flavum are hypertrophic. The central canal has moderate stenosis. L3-L4: Diffuse disc bulge and disc space narrowing with facet hypertrophy causes moderate bilateral foraminal stenosis. The ligamentum flavum are hypertrophic. The central canal has moderate stenosis. L4-L5: Severe disc space narrowing. Diffuse disc bulge and disc osteophytes. Bilateral facet hypert rophy. Severe right and moderate left foraminal stenosis. The central canal is patent. L5-S1: Disc space narrowing and diffuse disc bulge with disc osteophytes and facet hypertrophy. The re is a central annular tear. Moderate bilateral foraminal stenosis. The central canal is patent. IMPRESSION: 1. Multilevel degenerative disc disease causing foraminal stenosis as detailed above. 2. Moderate central canal stenosis at L2-3 and L3-4 unchanged compared to prior. Reviewed by: Antoni Calhoun MD on 05/09/2023 9:35 AM PST Approved by: Antoni Calhoun MD on 05/09/2023 9:35 AM PST Station ID: [id number]
== END 2023-05-08 12:40 | disposition home or self-care (01) ==
LOC: DI 12:39
PROVIDERS: ATTEND Physician Assistant Medical
DX: M51.36 Other intervertebral disc degeneration, lumbar region (principal); M48.061 Spinal stenosis, lumbar region without neurogenic claudication; M51.37 Other intervertebral disc degeneration, lumbosacral region; M48.07 Spinal stenosis, lumbosacral region

== ENCOUNTER 2023-05-09 08:45 | Outpatient (CLI) | payer MEDICARE | END 2023-05-09 09:00 | disposition home or self-care (01) | LOC: LAB.N 08:45 | PROVIDERS: ATTEND Specialist | DX: R30.0 Dysuria (principal) | CPT/HCPCS: 87077; 87086; 87181 ==

== ENCOUNTER 2023-05-22 08:00 | Outpatient (CLI) | payer MEDICARE | END 2023-05-22 23:59 | disposition home or self-care (01) | LOC: LAB 08:00 | PROVIDERS: ATTEND Physician Assistant | DX: R30.0 Dysuria (principal) | CPT/HCPCS: 87077; 87086; 87181 ==

== ENCOUNTER 2023-06-17 08:00 | Outpatient (CLI) | payer MEDICARE | END 2023-06-17 23:59 | disposition home or self-care (01) | LOC: LAB.N 08:00 | PROVIDERS: ATTEND Physician Assistant | DX: R30.0 Dysuria (principal) | CPT/HCPCS: 87077; 87086; 87181 ==

== ENCOUNTER 2023-06-25 19:45 | Outpatient (CLI) | payer MEDICARE | END 2023-06-25 19:46 | disposition EMS.NT | LOC: EMS 19:45 | DX: S89.91XA Unspecified injury of right lower leg, initial encounter (principal); W10.9XXA Fall (on) (from) unspecified stairs and steps, initial encounter ==

== ENCOUNTER 2023-06-25 20:34 | Emergency (ER) | payer MEDICARE ==
[2023-06-25 20:48] VITALS: BP 141/81; O2SAT 99
--- NOTE | 2023-06-25 21:26 | XRAY Report ---
PROCEDURE: Knee 3V RT INDICATIONS: SLIPPED/FELL/PAIN/INJURY R KNEE TECHNIQUE: 3 views of the knee(s) were acquired. COMPARISON: 12/22/2020 FINDINGS: Bones: Normal mineralization. No definite fractures. There is tricompartment joint space loss and mo derate spur formation, most severe in the medial compartment and progressed compared to the prior exa m. Soft tissues: Small knee joint effusion. No suspicious soft tissue calcifications or masses. Mild t o moderate peripheral vascular calcification. IMPRESSION: No acute bony abnormality. If there remains a high clinical concern for fracture, consider cross-sect ional imaging now. If pain persists, consider repeat x-ray in 10-14 days or cross-sectional imaging. Small chronic knee joint effusion. Mildly progressed tricompartment osteoarthritis. Reviewed by: Deidre Caicedo MD on 06/25/2023 9:25 PM PST Approved by: Deidre Caicedo MD on 06/25/2023 9:25 PM PST Station ID: [id number]
--- NOTE | 2023-06-25 21:49 | ED Physician Documentation ---
History of Present Illness - Stated complaint Stated Complaint: FALL/RT KNEE INJ - Chief complaint Chief Complaint: Ext Problem - History obtained from History obtained from: Patient - History of Present Illness Timing: Today Pain level max: 5 Pain level now: 4 - Additonal information Additional information: 78-year-old female presents to the emergency department after taking the trash out and falling with her walker. Landed on a concrete floor on the right knee. Sustained a laceration to the knee. Tetanus shot up-to-date. Has pain over the anterior aspect of the knee. Worse with movement, better with rest. No head, neck, back pain. Not on blood thinners. No other injuries. No hip pain. Review of Systems Constitutional: denies: Fever GI: denies: Vomiting Skin: denies: Rash Musculoskeletal: denies: Neck pain, Back pain Neurologic: denies: Headache, Head injury, LOC PD PAST MEDICAL HISTORY - Past Medical History Cardiovascular: Valve disorder Respiratory: None Neuro: Seizure disorder Endocrine/Autoimmune: None GI: GERD, Colon polyps IP PAR[place]GAL: None : Incontinence, Chronic bladder infection HEENT: Chronic vision loss Psych: Depression, Anxiety Musculoskeletal: Osteoarthritis, Gout, Other Derm: Rosacea - Past Surgical History Past Surgical History: Yes General: Appendectomy, Colonoscopy Cardiovascular: Valve replacement HEENT: Cataracts, Tonsil/Adenoidectomy - Present Medications Home Medications: Ambulatory Orders Medication Instructions Recorded Confirmed Aspirin [Children's Aspirin] 81 mg PO DAILY 09/03/13 04/24/22 Rosuvastatin Calcium [Crestor] 5 mg PO DAILY 12/11/21 04/24/22 Fluoxetine HCl [Prozac] 40 mg PO DAILY 01/19/22 04/24/22 Buspirone HCl 5 mg PO DAILY 04/24/22 04/24/22 LORazepam [Ativan] 0.5 mg PO BID 04/24/22 04/24/22 clonazePAM [Klonopin] 1.5 mg PO DAILY 04/24/22 04/24/22 - Allergies Allergies/Adverse Reactions: Allergies Allergy/AdvReac Type Severity Reaction Status Date / Time ondansetron HCl * Allergy Hives Verified 06/25/23 20:47 [From Zofran (as hydrochloride)] Sulfa (Sulfonamide AdvReac Unknown Nausea Verified 06/25/23 20:47 Antibiotics) - Social History Does the pt smoke?: No Smoking Status: Never smoker Does the pt drink ETOH?: No Does the pt have substance abuse?: No - Immunizations Immunizations are current?: Yes - POLST Patient has POLST: No POLST Status: Full Code PD ED PE NORMAL - Vitals Vital signs reviewed: Yes - General General: Alert and oriented X 3, No acute distress - HEENT HEENT: Atraumatic, PERRL, Moist mucous membranes - Neck Neck: Supple, no meningeal sign, No bony TTP - Cardiac Cardiac: RRR - Respiratory Respiratory: No respiratory distress, Clear bilaterally - Back Back: No spinal TTP - Derm Derm: Warm and dry - Extremities Extremities: Other (R knee Tender to palpation over the anterior aspect of the patella. No swelling or bruising. There is a 3 cm linear laceration on the inferior aspect of the knee. Into subcutaneous fat. Does not violate the joint space. ACL, PCL, LCL, MCL are intact. Unable to tolerate meniscus testing well.) - Neuro Neuro: Alert and oriented X 3, conformal pad former 2-12 intact, No motor deficit, No sensory deficit, Normal speech Eye Opening: Spontaneous Motor: Obeys Commands Verbal: Oriented GCS Score: 15 - Psych Psych: Normal mood, Normal affect Results - Vitals Vitals: Vital Signs - 24 hr 06/25/23 20:40 Temperature 36.4 C L Heart Rate 84 Respiratory 18 Rate Blood Pressure 141/81 H O2 Saturation 99 Oxygen O2 Source Room air - Rads (name of study) Right knee x-ray Relevant Findings:: Final report received, See rad report (No acute abnormality, chronic knee effusion) Procedures - Laceration (location) R knee Length in cm: 3 Wound type: Linear, Into subcut fat, Clean Neurovascular status: Sensory intact, Motor intact, Vascular intact Tendon involvement: Tendon intact Wound preparation: Irrigated copiously NS, Wound explored, To the base Skin layer closure: Lambert Other: Patient tolerated well, No complications, Neurovascular intact, Dressing applied, Tetanus UTD PD Medical Decision Making - ED course Complexity details: reviewed results, re-evaluated patient, considered differential, d/w patient ED course: Laceration repaired with tiffani. Tolerated well. No acute findings on x-ray. No evidence of patellar fracture. Patient declines any pain medication here or for home. No other traumatic injuries. No headache, no head injury. Did not strike the ground with her head. Is not on blood thinners. No neck or back pain. No hip pain. Patient counseled regarding signs and symptoms for which I believe and urgent re-evaluation would be necessary. Patient with good understanding of and agreement to plan and is comfortable going home at this time This document was made in part using voice recognition software. While efforts are made to proofread this document, sound alike and grammatical errors may occur. Departure - Departure Disposition: 01 Home, Self Care Clinical Impression: Laceration of right knee Qualifiers: Encounter type: initial encounter Qualified Code(s): S81.011A - Laceration without foreign body, right knee, initial encounter Contusion of right knee Qualifiers: Encounter type: initial encounter Qualified Code(s): S80.01XA - Contusion of right knee, initial encounter Condition: Good Instructions: ED Contusion Lower Ext, ED Laceration Ext Sutr Stap Tape Follow-Up: Mago Baldwin PA-C [Primary Care Provider] - Comments: Thankfully your x-ray does not show any fractures in your knee or patella tonight. Your laceration was repaired with tiffani. The tiffani will need to be removed in about 10 to 14 days with your doctor. Please be careful with bending your knee as you may open the wound. You have indicated that your tetanus shot is up-to-date. Please return if you notice redness, swelling or drainage from the wound. Forms: PCP List Discharge Date/Time: 06/25/23 22:08
== END 2023-06-25 22:08 | disposition home or self-care (01) ==
LOC: ED 20:34
DX: S81.011A Laceration without foreign body, right knee, initial encounter (principal); W18.30XA Fall on same level, unspecified, initial encounter
CPT/HCPCS: 12002; 99283

== ENCOUNTER 2023-06-28 14:42 | Outpatient (CLI) | payer MEDICARE ==
[2023-06-28 15:19] LABS: BASOPHILS % (AUTO) 0.4 %; EOSINOPHILS # (AUTO) 0.2 10^3/uL (0.0-0.7); EOSINOPHILS % (AUTO) 2.9 %; HCT - HEMATOCRIT 42.3 % (37.0-47.0); HGB - HEMOGLOBIN 12.9 g/dL (12.0-16.0); LYMPHOCYTES # (AUTO) 1.3 10^3/uL (1.5-3.5); LYMPHOCYTES % (AUTO) 18.9 %; MEAN CORPUSCULAR HEMOGLOBIN 27.7 pg (27.0-31.0); MEAN CORPUSCULAR HGB CONC 30.5 g/dL (32.0-36.0); MEAN CORPUSCULAR VOLUME 90.8 fL (81.0-99.0); MONOCYTES # (AUTO) 0.7 10^3/uL (0.0-1.0); MONOCYTES % (AUTO) 10.5 %; NEUTROPHILS # (AUTO) 4.6 10^3/uL (1.5-6.6); NEUTROPHILS % (AUTO) 67.2 %; PLT - PLATELET COUNT 224 10^3/uL (130-450); RED BLOOD COUNT 4.66 10^6/uL (4.20-5.40); WHITE BLOOD COUNT 6.9 x10^3/uL (4.8-10.8)
[2023-06-28 16:07] LABS: ALBUMIN 3.9 g/dL (3.2-5.5); ALBUMIN/GLOBULIN RATIO 1.1 (1.0-2.2); BILIRUBIN,TOTAL 0.3 mg/dL (0.2-1.0); CALCIUM 9.9 mg/dL (8.5-10.3); CREATININE 1.4 mg/dL (0.6-1.3); POTASSIUM 4.7 mmol/L (3.5-4.5); TOTAL PROTEIN 7.4 g/dL (6.4-8.9)
--- NOTE | 2023-06-28 18:26 | CT Report ---
PROCEDURE: Abdomen/Pelvis WO INDICATIONS: CYSTITIS TECHNIQUE: A CT scan of the abdomen and pelvis was performed without the use of intravenous contrast. Images we re recorded and evaluated at appropriate window settings. Reformats: coronal and sagittal. For radiat ion dose reduction, the following was used: automated exposure control, adjustment of mA and/or kV ac cording to patient size. COMPARISON: CT abdomen and pelvis without contrast on December 11, 2021. FINDINGS: Image quality: Diagnostic. Evaluation of visceral organs is limited due to the lack of intravenous co ntrast. Lower chest: Partially visualized aortic valve replacement. No suspicious pulmonary nodules or consol idation. No hiatal hernia. Liver: No contour-deforming mass. Gallbladder and biliary tree: No radiopaque stones or wall thickening. No biliary dilation. Spleen: No splenomegaly. Pancreas: No pancreatic ductal dilation. Adrenals: No adrenal nodule. Kidneys and ureters: No hydronephrosis bilaterally. Nonobstructing nephrolith in the right upper pole measuring 7 x 4 mm (2/56). Left upper pole nonobstructive nephrolith measuring 8 x 6 mm (2/50). No r enal cystic lesion which requires follow up. Right interpolar simple cyst. Left lower lobe parapelvic cysts, stable. Additional subcentimeter cortical hypodensities in the right lower pole and left lowe r pole are too small to characterize, statistically cysts. Stomach, bowel and peritoneum: Gastric fundal diverticulum. Stomach is otherwise grossly normal. Smal l large bowel is normal in caliber, without obstruction. No pneumatosis, pneumoperitoneum or portal v enous gas. Lymph nodes: No central or retroperitoneal adenopathy. Vessels: No infrarenal aortic aneurysm. Mild to moderate calcification of the abdominal aorta, withou t aneurysm. Alry-jv-urypwnwl bilateral renal ostial calcification. Mild desiccation of the origin of the SMA. PELVIS Reproductive organs: Unremarkable. Bladder: No wall thickness, accounting for underdistention. Pelvic lymph nodes: No pelvic adenopathy by size criteria. Bones: No aggressive osseous abnormality. Moderate to severe multilevel degenerative changes of the s pine. Grade 1 anterolisthesis of L5 on S1 of approximately 3 mm. Other: Tiny fat-containing umbilical hernia. IMPRESSION: Evaluation of the visceral organs is limited due to contrast. 1.No hydronephrosis bilaterally. 2.Compared to CT KUB dated December 11, 2021, 2 bilateral nonobstructive nephrolithiasis measuring 7 x 4 mm in the right upper pole and 8 x 6 mm in the left upper pole. 3.Stable appearance of right interpolar simple cyst and left renal parapelvic cysts. Reviewed by: Lia Denise MD on 06/28/2023 6:25 PM PST Approved by: Lia Denise MD on 06/28/2023 6:25 PM PST Station ID: [id number]
== END 2023-06-28 14:43 | disposition home or self-care (01) ==
LOC: DI 14:42
PROVIDERS: ATTEND Physician Assistant Medical
DX: N30.00 Acute cystitis without hematuria (principal); N20.0 Calculus of kidney; N28.1 Cyst of kidney, acquired
CPT/HCPCS: 36415; 80053; 85025

== ENCOUNTER 2023-07-29 08:33 | Outpatient (CLI) | payer MEDICARE | END 2023-07-29 23:59 | disposition EMS.NT | LOC: EMS 08:33 | DX: M54.9 Dorsalgia, unspecified (principal); W19.XXXA Unspecified fall, initial encounter | CPT/HCPCS: A0425; A0429 ==

== ENCOUNTER 2023-07-29 08:54 | Emergency (ER) | payer MEDICARE ==
--- NOTE | 2023-07-29 09:05 | ED Physician Documentation ---
History of Present Illness - Stated complaint Stated Complaint: BACK PX - Additonal information Additional information: Patient 78-year-old female presenting the emergency department with chest and back pain. Reports longstanding chronic right-sided back pain with sciatica down the right leg. Reports is following up with a back specialist on the of this month. Reports that she has begun to develop left-sided back pain and pain down her left leg. Also reports was having intermittent episodes of chest pain earlier today. Reports a fall that happened a few weeks ago but denies any new trauma. Denies any fever, loss of sensation around the anus or genitalia, reports chronic incontinence of urine but no new incontinence of stool. Denies any lower extremity weakness. 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 : Incontinence, Chronic bladder infection HEENT: Chronic vision loss Psych: Depression, Anxiety Musculoskeletal: Osteoarthritis, Gout, Other Derm: Rosacea - Past Surgical History Past Surgical History: Yes General: Appendectomy, Colonoscopy Cardiovascular: Valve replacement HEENT: Cataracts, Tonsil/Adenoidectomy - Present Medications Home Medications: Ambulatory Orders Medication Instructions Recorded Confirmed Aspirin [Children's Aspirin] 81 mg PO DAILY 09/03/13 04/24/22 Rosuvastatin Calcium [Crestor] 5 mg PO DAILY 12/11/21 04/24/22 Fluoxetine HCl [Prozac] 40 mg PO DAILY 01/19/22 04/24/22 Buspirone HCl 5 mg PO DAILY 04/24/22 04/24/22 LORazepam [Ativan] 0.5 mg PO BID 04/24/22 04/24/22 clonazePAM [Klonopin] 1.5 mg PO DAILY 04/24/22 04/24/22 HYDROcod/ACETAM 5/325 [[place] 5/325] 1 - 2 ea PO Q6H PRN #14 tablet 07/29/23 methylPREDNISolone [Medrol] 4 mg PO DAILY #1 tab 07/29/23 - Allergies Allergies/Adverse Reactions: Allergies Allergy/AdvReac Type Severity Reaction Status Date / Time ondansetron HCl * Allergy Hives Verified 07/29/23 09:08 [From Zofran (as hydrochloride)] Sulfa (Sulfonamide AdvReac Unknown Nausea Verified 07/29/23 09:08 Antibiotics) - Social History Does the pt smoke?: No Smoking Status: Never smoker Does the pt drink ETOH?: No Does the pt have substance abuse?: No - Immunizations Immunizations are current?: Yes - POLST Patient has POLST: No POLST Status: Full Code PD ED PE NORMAL - Vitals Vital signs reviewed: Yes (WNL) - General General: Alert and oriented X 3, Other (Patient morbidly obese.) - HEENT HEENT: Atraumatic, PERRL, EOMI, Ears normal, Moist mucous membranes, Pharynx benign - Neck Neck: Supple, no meningeal sign, No bony TTP, No adenopathy, Thyroid normal - Cardiac Cardiac: RRR - Respiratory Respiratory: No respiratory distress, Clear bilaterally - Abdomen Abdomen: Normal bowel sounds, Non tender - Female Female : Deferred - Rectal Rectal: Deferred - Neuro Neuro: Alert and oriented X 3, physician advisor 2-12 intact, Other (Normal strength and sensation in the lower extremities.) Results - Vitals Vitals: Vital Signs - 24 hr 07/29/23 07/29/23 09:05 11:08 Temperature 36.6 C Heart Rate 61 68 Respiratory 15 15 Rate Blood Pressure 100/81 H 134/67 H O2 Saturation 99 98 Oxygen O2 Source Room air - EKG (time done) 0911 EKG releavant findings:: EKG personally interpreted by author of this note. Relevant findings are: Sinus rhythm with rate 63 bpm. Left axis deviation. LA interval prolonged at 226 ms. Normal QRS and QTc intervals. No ST segment elevations. Nonspecific ST-T wave abnormalities. Moderate motion artifact throughout. - Labs Labs: Laboratory Tests 07/29/23 07/29/23 07/29/23 09:20 09:20 09:20 WBC 5.7 RBC 4.76 Hgb 13.0 Hct 42.3 MCV 88.9 MCH 27.3 MCHC 30.7 L RDW 14.0 Plt Count 231 MPV 9.4 Neut # (Auto) 3.9 Lymph # (Auto) 1.2 L [place] # (Auto) 0.4 Eos # (Auto) 0.2 Baso # (Auto) 0.0 Absolute Nucleated RBC 0.00 Nucleated RBC % 0.0 D-Dimer Sodium 137 Potassium 4.2 Chloride 105 Carbon Dioxide 25 Anion Gap 7.0 BUN 28 H Creatinine 1.2 Estimated GFR (MDRD) 43 L Glucose 114 H Calcium 9.4 Total Bilirubin 0.4 AST 12 ALT 12 Alkaline Phosphatase 71 Troponin I High Sens 4.4 Total Protein 7.2 Albumin 3.8 Globulin 3.4 Albumin/Globulin Ratio 1.1 Lipase 18 07/29/23 07/29/23 09:20 10:51 WBC RBC Hgb Hct MCV MCH MCHC RDW Plt Count MPV Neut # (Auto) Lymph # (Auto) [place] # (Auto) Eos # (Auto) Baso # (Auto) Absolute Nucleated RBC Nucleated RBC % D-Dimer 212.7 Sodium Potassium Chloride Carbon Dioxide Anion Gap BUN Creatinine Estimated GFR (MDRD) Glucose Calcium Total Bilirubin AST ALT Alkaline Phosphatase Troponin I High Sens 2.6 Total Protein Albumin Globulin Albumin/Globulin Ratio Lipase PD Medical Decision Making - ED course Complexity details: reviewed results, re-evaluated patient, considered differential, d/w patient ED course: Patient 78-year-old female presenting the emergency department with back pain. Reports history of chronic back pain which was usually on the right side with some effective right-sided sciatica, now with left-sided pain. Afebrile, he medically stable on arrival to the emergency department. Denied red flag symptoms such as fever, saddle paresthesia and while she reports that she is chronically incontinent of urine did not endorse for any new urinary retention or incontinence of stool. Normal strength in the lower extremities noted. Did report that she had had some intermittent episodes of chest painThis morning which she attributed to anxiety. EKG, serial troponins negative. D-dimer negative. Chest x-ray nonacuteNo indications acute cardiac or in her thoracic pathology. Imaging of her lumbar spine demonstrates spinal stenosis with likely foraminal narrowing and bilateral nerve impingement. No indications acute compression to the spine or other neurosurgical emergency. Patient initially failed ambulatory trial after receiving dose of fentanyl, Valium. On reevaluation reported that she continues to have pain. She was explicitly offered evaluation/hospitalization/placement as appropriate given the amount of pain that she is having and her inability to ambulate. She refused this. Reported that she was going home to take care of her dogs no matter what. I expressed my concern that given her pain as well as the chronic findings on her lumbar CT she would likely have persistent pain which could interfere with her ability to safely care for herself. She verbalized understanding of the risks and benefits of discharge but nevertheless refused hospital admission. She was able to pass a second ambulatory trial. Will discharge with Medrol Dosepak, medication for pain control. Cautioned about the use of medication for pain, specifically discussing its potential side effects including respiratory depression, oversedation, increased risk for falls. Encourage careful follow-up with primary care. Clear return precautions given.. . Departure - Departure Clinical Impression: Lumbar stenosis Qualifiers: Neurogenic claudication status: with neurogenic claudication Qualified Code(s): M48.062 - Spinal stenosis, lumbar region with neurogenic claudication Chest pain Qualifiers: Chest pain type: unspecified Qualified Code(s): R07.9 - Chest pain, unspecified Instructions: ED Chest Pain Atypical Unkn Cause Prescriptions: methylPREDNISolone [Medrol] 4 mg PO DAILY #1 tab HYDROcod/ACETAM 5/325 [[place] 5/325] 1 - 2 ea PO Q6H PRN #14 tablet PRN Reason: Pain Comments: Thank you for allowing us to care for you today at [facility]. Today in the emergency department you were evaluated for any possible dangerous or life-threatening medical emergency. Overall the testing performed in the emergency department today including your chest x-ray, EKG and lab work were reassuring. Your CT scan of your lumbar spine however showed multiple findings including stenosis or narrowing of the canal as well as areas where there is likely impingement of the nerves. This is almost certainly causing the symptoms that you have been having. As we discussed is very concerned about your decreased ability to ambulate here in the emergency department. I am worried that you will have difficulty time caring for yourself at home which can also be dangerous if you are unable to perform activities of daily living. We discussed hospitalization at this time this is not something that you are interested in. We discussed hospitalization at this time this is not something that you are interested in. I written a prescription for an oral narcotic pain medication. Please be aware that this medication is both sedating and habit-forming.This medication can also increase your risk for falls at home. Please use this medication cautiously. I have also written for a short course of an oral steroid. Evidence on the use of steroids in a situation like this is not robust however as we discussed this may help provide some relief of your symptoms. Please follow-up with your primary care doctor soon as possible. If at home you are finding a difficult time maintaining her activities of daily living I would like you to return to the emergency department for reevaluation.
[2023-07-29 09:25] LABS: BASOPHILS % (AUTO) 0.5 %; EOSINOPHILS # (AUTO) 0.2 10^3/uL (0.0-0.7); EOSINOPHILS % (AUTO) 3.5 %; HCT - HEMATOCRIT 42.3 % (37.0-47.0); LYMPHOCYTES # (AUTO) 1.2 10^3/uL (1.5-3.5); LYMPHOCYTES % (AUTO) 20.9 %; MEAN CORPUSCULAR HEMOGLOBIN 27.3 pg (27.0-31.0); MEAN CORPUSCULAR HGB CONC 30.7 g/dL (32.0-36.0); MEAN CORPUSCULAR VOLUME 88.9 fL (81.0-99.0); MEAN PLATELET VOLUME 9.4 fL (7.9-10.8); MONOCYTES # (AUTO) 0.4 10^3/uL (0.0-1.0); MONOCYTES % (AUTO) 7.7 %; NEUTROPHILS # (AUTO) 3.9 10^3/uL (1.5-6.6); NEUTROPHILS % (AUTO) 67.2 %; PLT - PLATELET COUNT 231 10^3/uL (130-450); RED BLOOD COUNT 4.76 10^6/uL (4.20-5.40); WHITE BLOOD COUNT 5.7 x10^3/uL (4.8-10.8)
[2023-07-29] MEDS: METOCLOPRAMIDE 10 MG/2 ML VIAL IVP STA (09:26)
[2023-07-29] MEDS: diazePAM INJ 5 MG/ML SYRINGE IVP STA (09:31)
[2023-07-29] MEDS: fentaNYL 100 MCG/2 ML VIAL IVP PRN (09:33)
[2023-07-29 09:44] LABS: ALBUMIN 3.8 g/dL (3.2-5.5); ALBUMIN/GLOBULIN RATIO 1.1 (1.0-2.2); BILIRUBIN,TOTAL 0.4 mg/dL (0.2-1.0); CALCIUM 9.4 mg/dL (8.5-10.3); CREATININE 1.2 mg/dL (0.6-1.3); POTASSIUM 4.2 mmol/L (3.5-4.5); TOTAL PROTEIN 7.2 g/dL (6.4-8.9)
--- NOTE | 2023-07-29 10:19 | XRAY Report ---
PROCEDURE: Chest 1V INDICATIONS: chest pain TECHNIQUE: One view of the chest was acquired. COMPARISON: None. FINDINGS: Surgical changes and devices: None. Lungs and pleura: No pleural effusions or pneumothorax. Lungs are clear. Mediastinum: Mediastinal contours appear normal. Heart size is normal. Bones and chest wall: No suspicious bony lesions. Overlying soft tissues appear unremarkable. IMPRESSION: No acute cardiopulmonary process. Reviewed by: Bebe Molina MD on 07/29/2023 10:17 AM PDT Approved by: Bebe Molina MD on 07/29/2023 10:17 AM PDT Station ID: [id number]
--- NOTE | 2023-07-29 10:49 | CT Report ---
PROCEDURE: Lumbar Spine WO INDICATIONS: intractible pain, fall two weeks ago TECHNIQUE: Noncontrast 3 mm thick sections acquired from the T12 level to the sacrum. Sagittal and coronal refo rmats were constructed. For radiation dose reduction, the following was used: automated exposure co ntrol, adjustment of mA and/or kV according to patient size. COMPARISON: Lumbar spine MRI dated 05/08/2023. FINDINGS: Image quality: Excellent. Bones: There is normal bony alignment. No acute vertebral body compression fractures. No suspiciou s lytic or blastic bony lesions. Central spinal caliber is of normal overall caliber. No pars defec ts. T12-L1: No significant canal stenosis or foraminal stenosis. L1-L2: No significant canal stenosis or foraminal stenosis. L2-L3: Disc bulge. Facet hypertrophy. Mild canal stenosis. L3-L4: Severe canal stenosis secondary to disc bulge and facet and ligament hypertrophy and short ped icles. Moderate bilateral foraminal narrowing with flattening deformity on the exiting bilateral L3 n erve roots. L4-L5: Chronic severe disc height loss with posterior diffuse osteophyte. Facet hypertrophy. Mild c anal stenosis. Mild bilateral foraminal stenosis. L5-S1: Right L5 pars defect. Prominent facet hypertrophy. No central canal stenosis. Moderate to ulices re bilateral foraminal narrowing with bilateral foraminal L5 nerve root impingement. Soft tissues: No retroperitoneal masses or hematomas. Visualized aorta is normal in caliber. IMPRESSION: 1. No acute bony abnormality. No acute compression fracture. 2. Diffuse degenerative change. 3. Canal stenosis is most significant at L3-L4, where there is severe canal stenosis 4. Unilateral L5 pars defect with trace anterolisthesis of L5 on S1 and severe bilateral foraminal na rrowing with bilateral foraminal L5 nerve root impingement. Reviewed by: Joao Ascencio MD on 07/29/2023 10:47 AM PDT Approved by: Joao Ascencio MD on 07/29/2023 10:47 AM PDT Station ID: [id number]
[2023-07-29 11:22] VITALS: O2SAT 98
[2023-07-29 14:05] VITALS: BP 124/84
== END 2023-07-29 13:57 | disposition home or self-care (01) ==
LOC: EDUNIT# → ED 08:54
DX: R07.9 Chest pain, unspecified (principal); M48.062 Spinal stenosis, lumbar region with neurogenic claudication
CPT/HCPCS: 36415; 71045; 72131; 80053; 83690; 84484; 85025; 85379; 93005; 96374; 96375; 99284; J2765

== ENCOUNTER 2023-12-09 12:32 | Outpatient (CLI) | payer MEDICARE ==
[2023-12-09 12:49] LABS: BASOPHILS % (AUTO) 0.5 %; EOSINOPHILS # (AUTO) 0.2 10^3/uL (0.0-0.7); EOSINOPHILS % (AUTO) 3.9 %; HGB - HEMOGLOBIN 13.8 g/dL (12.0-16.0); LYMPHOCYTES % (AUTO) 17.4 %; MEAN CORPUSCULAR HEMOGLOBIN 28.1 pg (27.0-31.0); MEAN CORPUSCULAR HGB CONC 31.4 g/dL (32.0-36.0); MEAN CORPUSCULAR VOLUME 89.6 fL (81.0-99.0); MEAN PLATELET VOLUME 9.2 fL (7.9-10.8); MONOCYTES # (AUTO) 0.4 10^3/uL (0.0-1.0); MONOCYTES % (AUTO) 7.1 %; NEUTROPHILS # (AUTO) 4.2 10^3/uL (1.5-6.6); NEUTROPHILS % (AUTO) 70.9 %; PLT - PLATELET COUNT 240 10^3/uL (130-450); RED BLOOD COUNT 4.91 10^6/uL (4.20-5.40); RED CELL DISTRIBUTION WIDTH 14.1 % (12.0-15.0); WHITE BLOOD COUNT 5.9 x10^3/uL (4.8-10.8)
[2023-12-09 13:06] LABS: ALBUMIN 4.2 g/dL (3.2-5.5); ALBUMIN/GLOBULIN RATIO 1.2 (1.0-2.2); ALKALINE PHOSPHATASE 73 IU/L (42-121); ALT ALANINE AMINOTRANSFERASE 14 IU/L (10-60); AST ASPARTATE AMINOTRANSFERASE 15 IU/L (10-42); BILIRUBIN,TOTAL 0.5 mg/dL (0.2-1.0); BUN - BLOOD UREA NITROGEN 18 mg/dL (6-20); CALCIUM 9.9 mg/dL (8.5-10.3); CARBON DIOXIDE - CO2 30 mmol/L (21-32); CHLORIDE 102 mmol/L (101-111); CHOL/HDL RATIO 2.9 (<4.4); CHOLESTEROL 126 mg/dL; CREATININE 1.4 mg/dL (0.6-1.3); GFR - MDRD 36 (>89); GLUCOSE 106 mg/dL (74-104); HDL CHOLESTEROL 44 mg/dL; LDL CHOLESTEROL,CALCULATED 49 mg/dL; LDL/HDL RATIO 1.1 (<4.4); POTASSIUM 4.9 mmol/L (3.5-4.5); SODIUM 137 mmol/L (135-145); TOTAL PROTEIN 7.8 g/dL (6.4-8.9); TRIGLYCERIDES 163 mg/dL; VLDL CHOLESTEROL 33 mg/dL
[2023-12-09 13:17] LABS: THYROID STIMULATING HORMONE 2.18 uIU/mL (0.34-5.60)
[2023-12-09 14:11] LABS: ESTIMATED AVERAGE GLUCOSE 114 mg/dL (70-100); HEMOGLOBIN A1c% 5.6 % (4.27-6.07)
== END 2023-12-09 12:33 | disposition home or self-care (01) ==
LOC: LAB 12:32
PROVIDERS: ATTEND Physician Assistant Medical
DX: R53.83 Other fatigue (principal); E78.5 Hyperlipidemia, unspecified; R73.9 Hyperglycemia, unspecified; R41.3 Other amnesia; G31.89 Other specified degenerative diseases of nervous system; I67.82 Cerebral ischemia
CPT/HCPCS: 36415; 70553; 80053; 80061; 81599; 82306; 82607; 82728; 83036; 84443; 85025; A9575; 83721

== ENCOUNTER 2023-12-09 12:45 | Outpatient (CLI) | payer MEDICARE ==
[~2023-12-09 12:45] MED LIST: GADOTERATE MEGLUMINE 10 MMOL/20 ML VIAL ONE; GADOTERATE MEGLUMINE 7.5 MMOL/15 ML VIAL ONE
[2023-12-09] MEDS: GADOTERATE MEGLUMINE 10 MMOL/20 ML VIAL IVP ONE (16:56)
[2023-12-09] MEDS: GADOTERATE MEGLUMINE 7.5 MMOL/15 ML VIAL IVP ONE (16:59)
--- NOTE | 2023-12-09 21:45 | MRI Report ---
PROCEDURE: Brain W/WO INDICATIONS: MEMORY LOSS CONTRAST: clariscan 24.4ml TECHNIQUE: Noncontrast axial T1 spin echo, axial T2 fast spin echo, sagittal and axial FLAIR, coronal T2 fast sp in echo, axial gradient echo, axial diffusion and ADC through the brain. After the administration of contrast, axial and coronal T1 spin echo with fat saturation through the brain. COMPARISON: CT head 02/07/2020 FINDINGS: Image quality: Excellent. CSF spaces: Basal cisterns are patent. No extra-axial fluid collections. Ventricles are normal in size and shape. Brain: No midline shift. No intracranial bleeds or masses. No abnormal intracranial enhancement. There is cerebral volume loss for age. There is periventricular white matter chronic small vessel is chemic change. The brainstem appears normal. Diffusion-weighted images demonstrate no acute ischemi c insults. No chronic ischemic insults. Normal intravascular flow voids are present. Hypointensiti es on gradient sequence are noted within the thalamus and basal ganglia suggestive of small areas of microangiopathy. Skull and face: Calvarial marrow is normal in signal. Orbits appear normal. Sinuses: Sinuses and mastoids appear clear. IMPRESSION: 1. No acute intracranial process. 2. Moderate atrophy and chronic microvascular ischemic changes. Reviewed by: Bebe Molina MD on 12/09/2023 9:43 PM PDT Approved by: Bebe Molina MD on 12/09/2023 9:43 PM PDT Station ID: [id number]
== END 2023-12-09 12:46 | disposition home or self-care (01) ==
LOC: LAB 12:45
PROVIDERS: ATTEND Physician Assistant Medical
DX: R41.3 Other amnesia (principal); G31.89 Other specified degenerative diseases of nervous system; I67.82 Cerebral ischemia
CPT/HCPCS: 70553; A9575

== ENCOUNTER 2025-03-09 19:04 | Inpatient (IN) ==
--- OUTSIDE RECORDS SUMMARY | 2025-03-09 19:22 | EXTERNAL MEDICAL SUMMARY RPT | Continuity of Care Document ---
Author Organization [facility] Address [address] [place] [id number] Phone Problems date description facility 2024-12-16 10:27 Unspecified hydronephrosis id [facility] 2024-12-16 10:33 Unspecified hydronephrosis id [facility] 2024-12-23 11:53 Unspecified hydronephrosis id [facility] 2024-12-24 00:01 Unspecified hydronephrosis id [facility] 2025-01-20 10:41 Radiculopathy, lumbar region [facility] 2025-01-21 13:24 Hyperlipidemia, unspecified i [facility] 2025-01-21 13:24 Major depressive disorder, recu rrent, [facility]25-01-21 13:24 Essential (primary) [facility]ensio [facility] 2025-01-21 13:24 [facility]initis, [facility] 2025-01-21 13:24 Pain in right knee [facility] 2025-01-21 13:24 Pain in left knee [facility] 2025-01-21 13:24 Chronic kidney disease, [facility]speci [facility]ied [facility] 2025-01-21 13:24 Hyperglycemia, unspecified id [facility] 2025-01-22 12:37 Pain in right knee [facility] 2025-01-22 12:37 Pain in left knee [facility] 2025-01-27 13:02 Hyperglycemia, unspecified id [facility] 2025-02-01 14:34 Pain in right knee [facility] 2025-02-01 14:34 [facility] left [facility] 2025-02-01 14:36 Pain in right knee [facility] 2025-02-01 14:36 [facility] left knee [facility] 2025-02-02 10:21 Pain in right knee [facility] 2025-02-02 10:21 Pain in left knee [facility] 2025-02-02 11:41 [facility] 2025-02-02 11:41 Urge incontinence [facility] 2025-02-02 14:29 Pain in right knee [facility] 2025-02-02 14:29 Pain in left knee [facility] 2025-02-02 14:29 Low back pain, unspecified [facility] 2025-02-02 14:29 Calculus of kidney [facility] 2025-02-02 14:29 [facility] 14:29 Chest pain, unspecified [facility] 2025-02-02 14:29 Unspecified injury o f right lower leg, initial encounter [facility] 2025-02-08 12:44 Pain in right knee [facility] 2025-02-08 12:44 Pain in left knee [facility] 2025-02-09 00:02 Pain in right knee [facility] 2025-02-09 00:02 Pain in left knee [facility] 2025-03-08 15:58 Calculus of kidney [facility] 2025-03-08 19:11 Calculus of kidney [facility] 2025-03-09 08:52 Calculus of kidney [facility] 2025-03-09 16:28 Calculus of kidney [facility] 2025-03-09 16:29 Calculus of kidney [facility] Results/Labs test date facility value unit notes Result panel 1 CUL,WOUND (AEROBIC) 2025-03-08 15:18 [facility] CC.1ORG 1 COLONY COUNT* (missing) CULTURE SOURCE: Left kidney urine for aerobic culture CUL,WOUND (AEROBIC) 2025-03-08 15:18 [facility] ORG.1PRELIM ORG ID* (missing) (missing) CUL,WOUND (AEROBIC) 2025-03-08 15:18 [facility] PICPRESENT IN CULTURE (missing) (missing) CUL,WOUND (AEROBIC) 2025-03-08 15:18 [facility] PPROPROTEUS SPECIES TO BE FURTHER IDENTIFIED (missing) (missing) Result panel 2 TROPONIN I HIGH SENSITIVITY 2025-03-08 17:43 [facility] 6.6 ng/l A HIGH SE NSITIVITY TROPONIN result of >= 14.9 ng/L for females is considered POSITIVE. A HIGH SENSITIVITY TROPONIN result of >= 19.8 ng/L for males is considered POSITIVE. A HIGH SENSITIVITY TROPONIN result of >= 17.9 ng/L for unspecified is considered POSITIVE. Result panel 3 NUCLEATED RED BLOOD CELLS AUTO 2025-03-08 19: [facility] 0.0 /100wbc (missing) BASOPHILS # (AUTO) 2025-03-08 19: [facility] 0.0 10 3/ul (missing) EOSINOPHILS # (AUTO) 2025-03-08 19:01 [facility] 0.0 10 3/ul (missing) MONOCYTES # (AUTO) 2025-03-08 19: [facility] 0.0 10 3/ul (missing) NRBC ABSOLUTE COUNT (AUTO) 2025-03-08 19:01 [facility] 0.00 x10 3/ul (missing) LYMPHOCYTES # (AUTO) 2025-03-08 19:01 [facility] 0.1 10 3/ul (missing) CREATININE 2025-03-08 19: [facility] 1.5 mg/dl As of November 2022 testing method has changed, this may include reference ranges. CHLORIDE 2025-03-08: [facility] 105 mmol/l As of November 2022 testing method has changed, this may include reference ranges. HGB - HEMOGLOBIN 2025-03-08 19: [facility] 12.8 g /dl (missing) RED CELL DISTRIBUTION WIDTH 2025-03-08 19: [facility] 14.5 % (wy ssing) GLUCOSE 2025-03-08: [facility] 140 mg/dl As of November 2022 testing method has changed, this may include reference ranges. SODIUM 2025-03-08 19:01 [facility] 140 mmol/l (missing) PLT - PLATELET COUNT 2025-03-08 19: [facility] 194 10 3/ul (missing) BUN - BLOOD UREA NITROGEN 2025-03-08 19: [facility] 25 mg/dl As of Nov testing method has changed, this may include reference ranges. CARBON DIOXIDE - CO2 2025-03-08: [facility] 27 mmol/l As of November 2022 testing method has changed, this may include reference ranges. MEAN CORPUSCULAR HEMOGLOBIN 2025-03-08: [facility] 27.2 pg (missing) MEAN CORPUSCULAR HGB CONC 2025-03-08: [facility] 29.6 g/dl (missing) GFR - MDRD 2025-03-08: [facility] 33 ([place]) The IDCT-traceable MDRD Study Equation has been validated extensively in and populations between the ages of 18 and 70 with impaired kidney function (eGFR < 60 mL/min/1.73m2) and has shown good performance for patients with all common causes of kidney disease. Although this equation has not been validated for patients older than 70, an MDRD-derived eGFR may still be a useful tool for providers caring for patients older than 70. References: http://www.nkdep.n ih.gov/lab-evaluat ion/gfr/creatinine -stand ardization, last updated July 2011. POTASSIUM 2025-03-08: [facility] 4.2 mmol/l As of November 2022 testing method has changed, this may include reference ranges. RED BLOOD COUNT 2025-03-08: [facility] 4.70 10 6/ul (missing) HCT - HEMATOCRIT 2025-03-08: [facility] 43.3 % (missing) NEUTROPHILS # (AUTO) 2025-03-08 19: [facility] 7.5 10 3/ul (missing) WHITE BLOOD COUNT 2025-03-08: [facility] 7.7 x10 3/ul (missing) ANION GAP 2025-03-08: [facility] 8.0 (missing ) (missing) MEAN PLATELET VOLUME 2025-03-08: [facility] 9.2 fl (missing) CALCIUM 2025-03-08: [facility] 9.4 mg/dl As of November 2022 testing method has changed, this may include reference ranges. MEAN CORPUSCULAR VOLUME 2025-03-08 19:01 [facility] 92.1 fl (missing) Result panel 4 CREATININE 2025-03-09 04:11 [facility] 1.6 mg/dl As of November 2022 testing method has changed, this may include reference ranges. ANION GAP 2025-03-09 04:11 [facility] 10.0 (missing ) (missing) CHLORIDE 2025-03-09 04:11 [facility] 106 mmol/l As of November 2022 testing method has changed, this may include reference ranges. HGB - HEMOGLOBIN 2025-03-09 04:11 [facility] 11.6 g /dl (missing) SODIUM 2025-03-09 04:11 [facility] 139 mmol/l (missing) RED CELL DISTRIBUTION WIDTH 2025-03-09 04:11 [facility] 14.8 % (mi ssing) GLUCOSE 2025-03-09 04:11 [facility] 157 mg/dl As of November 2022 testing method has changed, this may include reference ranges. PLT - PLATELET COUNT 2025-03-09 04:11 [facility] 186 10 3/ul (missing) WHITE BLOOD COUNT 2025-03-09 04:11 [facility] 20.8 x10 3/ul (missing) CARBON DIOXIDE - CO2 2025-03-09 04:11 [facility] 23 mmol/l As of November 2022 testing method has changed, this may include reference ranges. BUN - BLOOD UREA NITROGEN 2025-03-09 04:11 [facility] 26 mg/dl As of Nov testing method has changed, this may include reference ranges. MEAN CORPUSCULAR HEMOGLOBIN 2025-03-09 04:11 [facility] 28.0 pg (missing) MEAN CORPUSCULAR HGB CONC 2025-03-09 04:11 [facility] 30.4 g/dl (missing) GFR - MDRD 2025-03-09 04:11 [facility] 31 (in g) The IDMS-traceable MDRD Study Equation has been validated extensively in and populations between the ages of 18 and 70 with impaired kidney function (eGFR < 60 mL/min/1.73m2) and has shown good performance for patients with all common causes of kidney disease. Although this equation has not been validated for patients older than 70, an MDRD-derived eGFR may still be a useful tool for providers caring for patients older than 70. References: http://www.nkdep.n ih.gov/lab-evaluat ion/gfr/creatinine -stand ardization, last updated July 2011. HCT - HEMATOCRIT 2025-03-09 04:11 [facility] 38.2 % (missing) RED BLOOD COUNT 2025-03-09 04:11 [facility] 4.15 10 6/ul (missing) POTASSIUM 2025-03-09 04:11 [facility] 4.9 mmol/l As of November 2022 testing method has changed, this may include reference ranges. CALCIUM 2025-03-09 04:11 [facility] 8.9 mg/dl As of November 2022 testing method has changed, this may include reference ranges. MEAN PLATELET VOLUME 2025-03-09 04:11 [facility] 9.6 fl (missing) MEAN CORPUSCULAR VOLUME 2025-03-09 04:11 [facility] 92.0 fl (missing) Social History date description facility Vital Signs date measurement value units 2025-01-20 00:00 BP_diastolic 63 mmHg 2025-01-20 00:00 BP_systolic 130 mmHg 2025-01-20 00:00 heart_rate 80 /min 2025-01-20 00:00 o2_saturation 98 % 2025-01-20 00:00 respiration_rate 16 /min 2025-01-20 00:00 temperature_standard 98 F
[2025-03-09 19:26] LABS: HCT - HEMATOCRIT 37.8 % (37.0-47.0); HGB - HEMOGLOBIN 11.4 g/dL (12.0-16.0); MEAN PLATELET VOLUME 9.2 fL (7.9-10.8); NRBC ABSOLUTE COUNT (AUTO) 0.00 x10^3/uL; NUCLEATED RED BLOOD CELLS AUTO 0.0 /100WBC; PLT - PLATELET COUNT 156 10^3/uL (130-450); RED CELL DISTRIBUTION WIDTH 14.8 % (12.0-15.0)
--- NOTE | 2025-03-09 19:34 | ED Physician Documentation ---
History of Present Illness Stated complaint Stated Complaint: ABD PX Chief complaint Chief Complaint: Abd Pain History obtained from History obtained from: Patient and EMS Additonal information Additional information: 79-year-old woman was discharged this morning with stent in place after left lithotripsy. It fell out and increased left sided pain. Meds/Allgy Home Medications Ambulatory Orders Medication Instructions Recorded Confirmed Permanent Disabled Placard 04/23/24 03/08/25 rosuvastatin 5 mg tablet (Crestor) 5 mg PO QPM #90 tab s 04/23/24 03/08/25 Myrbetriq 25 mg tablet,extended 25 mg PO QDAY #30 tabs 09/18/24 03/08/25 release (mirabegron) fluoxetine 60 mg tablet 60 mg PO QAM #90 tabs 03/08/25 aspirin 81 mg tablet 81 mg PO QDAY 12/31/2403/08 buspirone 10 mg tablet 20 mg (2 x 10 mg) PO BID #18 0 tabs 03/02/25 03/08/25 cephalexin 500 mg capsule 500 mg PO Q6H 5 days #20 cap s 03/08/25 hydrocodone 5 mg-acetaminophen 325 1 tab PO Q4H PRN Pa in #10 tabs 03/08/25 mg tablet Allergies Allergies Allergy/AdvReac Type Severity Reaction Status Date / Time nitrofurantoin Allergy Severe Hives, Verified 03/09/25 19:17 syncope adhesive tape AdvReac Mild Rash Verified 03/09/25 19:17 Sulfa (Sulfonamide AdvReac Unknown Nausea Verified 03/09/25 19:17 Antibiotics) PFSH Active Problems All Active Problems (Updated 03/09/25 @ 20:28 by Dustin Sosa MD) Obstructive pyelonephritis (Acute) Kidney stone (Acute) Acute meniscal tear of right knee (Acute) Knee pain, bilateral (Acute) Hydronephrosis, left (Chronic) Allergic rhinitis (Chronic) Asymptomatic bacteriuria (Chronic) Actinic keratosis (Chronic) Aortic stenosis (Chronic) Hyperglycemia (Chronic) Hyperlipidemia (Chronic) Urge incontinence (Chronic) Gout (Chronic) Eczema (Chronic) Fatty liver disease, nonalcoholic (Chronic) Hypertension, essential, benign (Chronic) Generalized anxiety disorder (Chronic) Major depressive disorder, recurrent, mild (Chronic) Caregiver lives at distance (Chronic) Kidney stone on right side (Chronic) Chronic kidney insufficiency (Chronic) Medical History Medical History (Updated 03/09/25 @ 20:28 by Dustin Sosa MD) Gastric diverticulum Hx of adenomatous colonic polyps Chronic low back pain Surgical History Surgical History Hx of appendectomy History of tonsillectomy and adenoidectomy Hx of aortic valve repair Family History Family History Father Heart attack Thyroid disorder Mother Ovarian cancer Thyroid disorder Sister Thyroid disorder Sister Thyroid disorder Social History Social History (Updated 01/21/25 @ 11:48 by NIRMALA BOWDEN LPN) Smoking Status: Former smoker If you are a former smoker, when did you quit? (Date/Year): 1974 Number of Years Smoked: 3 How many cigarettes a day do you smoke? (20 cigarettes=1 Pk): 2 Second hand tobacco smoke exposure: Yes Do you dip or chew tobacco?: No Do you vape?: No Living arrangement: At home Marital Status: Living Condition: Alone Has a Durable Power of Plaster Mechanic for Health Care?: Yes DPOA on file?: No Has Health Care Directive?: Yes Health Care Directive on file?: No Level: Assisted Do you feel safe in your home environment?: Yes History of physical, verbal, emotional, or financial abuse?: No ETOH Use: None Substance Use: denies use POLST Patient has POLST: No Exam Exam Vital Signs: Vital Signs x48h Temp Pulse Resp BP Pulse Ox 03/09/25 19:11 37.3 C 77 18 133/56 H 93 Constitutional normal general appearance and no apparent distress Gastrointestinal abdomen normal to inspection, abdomen soft to palpation and nontender to palpation Neurology GCS 15 Results Vitals Vitals: Vital Signs - 24 hr 03/09/25 13:25 03/09/25 19:11 Temperature 37.3 C Temperature Source Temporal Artery Scan Pulse Rate 77 Respiratory Rate 18 Blood Pressure 133/56 H O2 Saturation 93 O2 Source Room air Room air Pain Intensity 2 7 Oxygen O2 Source Room air Labs Labs: Laboratory Tests 03/09/25 19:21 WBC 15.2 H RBC 4.12 L Hgb 11.4 L Hct 37.8 MCV 91.7 MCH 27.7 MCHC 30.2 L RDW 14.8 Plt Count 156 MPV 9.2 Neut # (Auto) 14.0 H Lymph # (Auto) 0.5 L [place] # (Auto) 0.6 Eos # (Auto) 0.0 Baso # (Auto) 0.0 Absolute Nucleated RBC 0.00 Nucleated RBC % 0.0 Sodium 137 Potassium 4.3 Chloride 104 Carbon Dioxide 27 Anion Gap 6.0 BUN 32 H Creatinine 1.8 H Estimated GFR (MDRD) 27 L Glucose 146 H Calcium 8.8 Total Bilirubin 0.3 AST 21 ALT 9 L Alkaline Phosphatase 64 Total Protein 6.8 Albumin 3.5 Globulin 3.3 Albumin/Globulin Ratio 1.1 Lipase 27 PD Medical Decision Making ED course ED course: 79-year-old woman with recent lithotripsy and stenting had her stent fall out now has increased pain although she declines pain medication initial evaluation. I called Dr. Shields after my initial evaluation he recommends labs and a CT. she does have a white count and GABRIELA on CKD. Dr. Shields reviewed her CT after completion and she has new hydronephrosis with small bits of stone in the ureter. Recommends admission to medicine for plan to replace the stent tomorrow. Spoke with [facility] for same at 8:27 PM. Discharge Plan Discharge Patient Disposition: ED Place in Observation Condition: Serious Clinical Impression: Obstructive pyelonephritis Prescriptions: No Action mirabegron [Myrbetriq] 25 mg tablet extended release 24 hr 25 mg PO QDAY Qty: 30 2RF fluoxetine 60 mg tablet 60 mg PO QAM Qty: 90 3RF Rx Instructions: for depression buspirone 10 mg tablet 20 mg PO BID Qty: 180 3RF hydrocodone-acetaminophen 5-325 mg tablet 1 tab PO Q4H PRN (Reason: Pain) Qty: 10 0RF cephalexin 500 mg capsule 500 mg PO Q6H 5 Days Qty: 20 0RF (DME) Permanent Disabled Placard Misc See Rx Instructions .Route Rx Instructions: As directed rosuvastatin [Crestor] 5 mg tablet 5 mg PO QPM Qty: 90 3RF Rx Instructions: for cholesterol aspirin 81 mg tablet 81 mg PO QDAY Print Language: Lao Stand Alone Forms: PCP List
[2025-03-09 19:53] LABS: ALT ALANINE AMINOTRANSFERASE 9.0 IU/L (10-60); AST ASPARTATE AMINOTRANSFERASE 21.0 IU/L (10-42); BUN - BLOOD UREA NITROGEN 32.0 mg/dL (6-20); CARBON DIOXIDE - CO2 27.0 mmol/L (21-32); CREATININE 1.8 mg/dL (0.6-1.3); GFR - MDRD 27.0 (>89)
--- NOTE | 2025-03-09 20:32 | HISTORY & PHYSICAL EXAMINATION ---
Chief Complaint Chief Complaint Chief Complaint: left flank pain History of Present Illness Admitted From Admitted From:: ER History Obtained From Records Reviewed: EMR History obtained from: patient Exam Limitations: none History of Present Illness HPI Comment/Other: Laurel is an 79-year-old woman well known to me with history of recurrent Proteus UTIs and kidney stones who underwent a left ureteroscopy procedure on Saturday, March 08. She was kept overnight for fatigue and weakness but was discharged yesterday. Her stent was left on a string but unfortunately she pulled it out almost immediately upon arriving at home. She developed worsening flank pain on the left side so presented back to the ER. CT scan showed small debris in her left ureter throughout and mild hydronephrosis along with her worsening GABRIELA. She admitted overnight and made NPO. She feels okay but continues to have back pain. She has been afebrile stable. She is on ceftriaxone Colonoscopy Questionnaire In the last 30 days have you experienced these symptoms? PFSH Active Problems All Active Problems (Updated 03/09/25 @ 20:29 by [facility]) S/P TAVR (transcatheter aortic valve replacement) (Acute) Acute kidney injury (Acute) Obstructive pyelonephritis (Acute) Kidney stone (Acute) Acute meniscal tear of right knee (Acute) Knee pain, bilateral (Acute) Hydronephrosis, left (Chronic) Allergic rhinitis (Chronic) Asymptomatic bacteriuria (Chronic) Actinic keratosis (Chronic) Aortic stenosis (Chronic) Hyperglycemia (Chronic) Hyperlipidemia (Chronic) Urge incontinence (Chronic) Gout (Chronic) Eczema (Chronic) Fatty liver disease, nonalcoholic (Chronic) Hypertension, essential, benign (Chronic) Generalized anxiety disorder (Chronic) Major depressive disorder, recurrent, mild (Chronic) Caregiver lives at distance (Chronic) Kidney stone on right side (Chronic) Chronic kidney insufficiency (Chronic) Medical History Medical History (Updated 03/09/25 @ 20:29 by [facility] Berrios) Gastric diverticulum Hx of adenomatous colonic polyps Chronic low back pain Surgical History Surgical History (Updated 03/09/25 @ 21:57 by SOU[facility] Berrios) Hx of appendectomy History of tonsillectomy and adenoidectomy Hx of aortic valve repair Family History Family History (Reviewed 06/26/24 @ 09:09 by Tiffani Mendoza, GERALDINEP, JEWEL CUPPING MACHINE OPERATOR, DNP) Father Heart attack Thyroid disorder Mother Ovarian cancer Thyroid disorder Sister Thyroid disorder Sister Thyroid disorder Social History Social History (Updated 01/21/25 @ 11:48 by NIRMALA BOWDEN LPN) Smoking Status: Former smoker If you are a former smoker, when did you quit? (Date/Year): 1974 Number of Years Smoked: 3 How many cigarettes a day do you smoke? (20 cigarettes=1 Pk): 2 Second hand tobacco smoke exposure: Yes Do you dip or chew tobacco?: No Do you vape?: No Living arrangement: At home Marital Status: Living Condition: Alone Has a Durable Power of Extender for Health Care?: Yes DPOA on file?: No Has Health Care Directive?: Yes Health Care Directive on file?: No Level: Assisted Do you feel safe in your home environment?: Yes History of physical, verbal, emotional, or financial abuse?: No ETOH Use: None Substance Use: denies use POLST Patient has POLST: No Meds/Allgy Home Medications Ambulatory Orders Medication Instructions Recorded Confirmed Permanent Disabled Placard 04/23/24 03/08/25 rosuvastatin 5 mg tablet (Crestor) 5 mg PO QPM #90 tab s 04/23/24 03/08/25 Myrbetriq 25 mg tablet,extended 25 mg PO QDAY #30 tabs 09/18/24 03/08/25 release (mirabegron) fluoxetine 60 mg tablet 60 mg PO QAM #90 tabs 03/08/25 aspirin 81 mg tablet 81 mg PO QDAY 12/31/2403/08 buspirone 10 mg tablet 20 mg (2 x 10 mg) PO BID #18 0 tabs 03/02/25 03/08/25 cephalexin 500 mg capsule 500 mg PO Q6H 5 days #20 cap s 03/08/25 hydrocodone 5 mg-acetaminophen 325 1 tab PO Q4H PRN Pa in #10 tabs 03/08/25 mg tablet Allergies Allergies Allergy/AdvReac Type Severity Reaction Status Date / Time nitrofurantoin Allergy Severe Hives, Verified 03/09/25 19:17 syncope adhesive tape AdvReac Mild Rash Verified 03/09/25 19:17 Sulfa (Sulfonamide AdvReac Unknown Nausea Verified 03/09/25 19:17 Antibiotics) Results Lab Results Lab results reviewed: Yes 03/10/25 05:53 03/10/25 05:53 Other Lab Results: Lab Results x24hrs 03/09/25 Range/Units 19:21 WBC 15.2 H (4.8-10.8) x10^3/uL RBC 4.12 L (4.20-5.40) 10^6/uL Hgb 11.4 L (12.0-16.0) g/dL Hct 37.8 (37.0-47.0) % MCV 91.7 (81.0-99.0) fL MCH 27.7 (27.0-31.0) pg MCHC 30.2 L (32.0-36.0) g/dL RDW 14.8 (12.0-15.0) % Plt Count 156 (130-450) 10^3/uL MPV 9.2 (7.9-10.8) fL Neut # (Auto) 14.0 H (1.5-6.6) 10^3/uL Lymph # (Auto) 0.5 L (1.5-3.5) 10^3/uL [place] # (Auto) 0.6 (0.0-1.0) 10^3/uL Eos # (Auto) 0.0 (0.0-0.7) 10^3/uL Baso # (Auto) 0.0 (0.0-0.1) 10^3/uL Absolute Nucleated RBC 0.00 x10^3/uL Nucleated RBC % 0.0 /100WBC Sodium 137 (135-145) mmol/L Potassium 4.3 (3.5-4.5) mmol/L Chloride 104 (101-111) mmol/L Carbon Dioxide 27 (21-32) mmol/L Anion Gap 6.0 (6-13) BUN 32 H (6-20) mg/dL Creatinine 1.8 H (0.6-1.3) mg/dL Estimated GFR (MDRD) 27 L (>89) Glucose 146 H (74-104) mg/dL Calcium 8.8 (8.5-10.3) mg/dL Total Bilirubin 0.3 (0.2-1.0) mg/dL AST 21 (10-42) IU/L ALT 9 L (10-60) IU/L Alkaline Phosphatase 64 (42-121) IU/L Total Protein 6.8 (6.4-8.9) g/dL Albumin 3.5 (3.2-5.5) g/dL Globulin 3.3 (2.1-4.2) g/dL Albumin/Globulin Ratio 1.1 (1.0-2.2) Lipase 27 (11-82) U/L Diagnostic Imaging Results Diagnostic Imaging Results: positive Read independently Exam Exam Vital Signs: Vital Signs x48h Temp Pulse Resp BP Pulse Ox 03/09/25 19:11 37.3 C 77 18 133/56 H 93 NAD RRR CTA b/l Left CVAT Impression/Plan Problem List (1) Kidney stone: Plan: Left kidney stone debris in ureter, GABRIELA Add-on for cystoscopy, left ureteroscopy, laser lithotripsy, stent. I will leave the stent in for 3 weeks this time. She will have a cystoscopy and removal in the office. We discussed the risk, benefits and alternatives of procedure. Specific risks of infection, bleeding, injury to adjacent structures, need for additional procedures, failure of therapy, stent colic were discussed. We discussed anesthesia risk. Patient states understanding and consents to the above plan Continue ceftriaxone for now
--- NOTE | 2025-03-09 20:40 | HISTORY & PHYSICAL EXAMINATION ---
Chief Complaint Chief Complaint Chief Complaint: left flank pain History of Present Illness Admitted From Admitted From:: home History of Present Illness HPI Comment/Other: 79 yo female who presents to the ED with left flank pain after Left ureteroscopy, laser lithotripsy with stent placement and stone basket extraction of left kidney stone with history of Proteus urinary tract infections. Patient was discharged to home this morning after overnight recovery. Unfortunately when she came home the stent fell out. She began to have left flank pain and presented to the emergency department with complaints of left flank pain. Emergency department spoke with Dr. Shiedls her urologist who requested that the patient be admitted overnight, receive IV antibiotics and will go to the operating room in the morning for further evaluation and treatment of her left hydronephrosis. The patient is generally not feeling well. She has a lot of back pain she has a lot of fatigue she denies any fevers. She has been taking Tylenol at home for her pain which has been helping. Socially she lives alone, she has a sister in [place] who is currently her surrogate medical decision maker. She also has a close friend Fidencio Hastings. She will want both of these people called if something catastrophic were to happen with her health. She states that she is full CODE STATUS. She does not have a POLST. Meds/Allgy Home Medications Ambulatory Orders Medication Instructions Recorded Confirmed Permanent Disabled Placard 04/23/24 03/08/25 rosuvastatin 5 mg tablet (Crestor) 5 mg PO QPM #90 tab s 04/23/24 03/08/25 Myrbetriq 25 mg tablet,extended 25 mg PO QDAY #30 tabs 09/18/24 03/08/25 release (mirabegron) fluoxetine 60 mg tablet 60 mg PO QAM #90 tabs 03/08/25 aspirin 81 mg tablet 81 mg PO QDAY 12/31/2403/08 buspirone 10 mg tablet 20 mg (2 x 10 mg) PO BID #18 0 tabs 03/02/25 03/08/25 cephalexin 500 mg capsule 500 mg PO Q6H 5 days #20 cap s 03/08/25 hydrocodone 5 mg-acetaminophen 325 1 tab PO Q4H PRN Pa in #10 tabs 03/08/25 mg tablet Allergies Allergies Allergy/AdvReac Type Severity Reaction Status Date / Time nitrofurantoin Allergy Severe Hives, Verified 03/09/25 19:17 syncope adhesive tape AdvReac Mild Rash Verified 03/09/25 19:17 Sulfa (Sulfonamide AdvReac Unknown Nausea Verified 03/09/25 19:17 Antibiotics) PFSH Active Problems All Active Problems (Updated 03/09/25 @ 20:29 by SOUTH Berrios) S/P TAVR (transcatheter aortic valve replacement) (Acute) Acute kidney injury (Acute) Obstructive pyelonephritis (Acute) Kidney stone (Acute) Acute meniscal tear of right knee (Acute) Knee pain, bilateral (Acute) Hydronephrosis, left (Chronic) Allergic rhinitis (Chronic) Asymptomatic bacteriuria (Chronic) Actinic keratosis (Chronic) Aortic stenosis (Chronic) Hyperglycemia (Chronic) Hyperlipidemia (Chronic) Urge incontinence (Chronic) Gout (Chronic) Eczema (Chronic) Fatty liver disease, nonalcoholic (Chronic) Hypertension, essential, benign (Chronic) Generalized anxiety disorder (Chronic) Major depressive disorder, recurrent, mild (Chronic) Caregiver lives at distance (Chronic) Kidney stone on right side (Chronic) Chronic kidney insufficiency (Chronic) Medical History Medical History (Updated 03/09/25 @ 20:29 by SOUTH Berrios) Gastric diverticulum Hx of adenomatous colonic polyps Chronic low back pain Surgical History Surgical History (Updated 03/09/25 @ 21:57 by SOUTH Berrios) Hx of appendectomy History of tonsillectomy and adenoidectomy Hx of aortic valve repair Family History Family History Father Heart attack Thyroid disorder Mother Ovarian cancer Thyroid disorder Sister Thyroid disorder Sister Thyroid disorder Social History Social History (Updated 01/21/25 @ 11:48 by NIRMALA BOWDEN LPN) Smoking Status: Former smoker If you are a former smoker, when did you quit? (Date/Year): 1974 Number of Years Smoked: 3 How many cigarettes a day do you smoke? (20 cigarettes=1 Pk): 2 Second hand tobacco smoke exposure: Yes Do you dip or chew tobacco?: No Do you vape?: No Living arrangement: At home Marital Status: Living Condition: Alone Has a Durable Power of Fixture Relamper for Health Care?: Yes DPOA on file?: No Has Health Care Directive?: Yes Health Care Directive on file?: No Level: Assisted Do you feel safe in your home environment?: Yes History of physical, verbal, emotional, or financial abuse?: No ETOH Use: None Substance Use: denies use POLST Patient has POLST: No Review of Systems Status of ROS: 10 or more systems reviewed and unremarkable except as noted in history and below Prior Level of Functionality: Independent. Exam Exam Vital Signs: Vital Signs x48h Temp Pulse Resp BP BP Pulse Ox 03/09/25 21:25 36.7 C 18 143/69 H 98 03/09/25 21:10 78 18 133/54 H 94 03/09/25 21:06 78 20 133/54 H 94 03/09/25 19:11 37.3 C 77 18 133/56 H 93 Constitutional normal general appearance mild distress, slightly diaphoretic HENMT normocephalic, hearing grossly normal bilaterally and external ears normal Eyes conjunctivae normal Neck/C-Spine visual inspection normal Lymph no lymphadenopathy noted Respiratory breath sounds equal bilaterally Cardiovascular normal heart rate noted Gastrointestinal abdomen soft to palpation Genitourinary mild L CVA ttp Extremities normal to inspection Neurology GCS 15 Psychiatry mental status grossly normal, oriented x3 and cooperative Skin skin color normal Conclusion/Plan Problem List (1) Obstructive pyelonephritis: Plan: With failed stent placement. I have discussed this patient briefly with Dr. Shields who is asking that I admit her overnight. She has a history of Proteus UTI we will admit for IV antibiotics. She received a gram of Rocephin in the emergency department. She has accompanying leukocytosis. She will get a gram of Rocephin in the morning she will be n.p.o. after midnight for return to the OR for cystoscopy and stent placement. (2) Acute kidney injury: Plan: This patient states that she has not been able to eat or drink for about 3 days secondary to all of her health problems. She has chronic kidney disease. Her creatinine is 1.8 on admission with an estimated GFR of 27. This is lower than it usually is. This is a mild acute kidney injury. I will admit her for IV hydration overnight she will go to the OR in the morning. After that she should be able to eat and drink. I will repeat her CBC and BMP in the AM. (3) S/P TAVR (transcatheter aortic valve replacement): Plan: Last seen by cardiology in [place], Dr. Logan Rodrigues 12/17/2024. Patient is status post TAVR in 2019. She has coronary artery disease. Last echocardiogram was in August 2022 normal LV size and wall thickness with a normal LV ejection fraction. The plan at that time was to repeat echocardiogram. I do not have any record of that being done. She should have this completed for followup as an outpatient. Plan I have spent 58 minutes in the care of this patient today. This includes time [id number], review and ordering of diagnostic imaging and laboratory studies and consultation with other providers. Monitoring the patient's signs symptoms, evaluation of medication effectiveness and patient's response to treatment. Lab Results Lab results reviewed: Yes 03/09/25 19:21 03/09/25 19:21 Core Measures Anticipated LOS I expect patient to be DC'd or transferred within 96 hours.: Yes DVT/VTE - Prophylaxis VTE/DVT Device ordered at admit?: Yes Not Ordered - Medical Reason: Contraindicated (Operative procedure imminently)
--- NOTE | 2025-03-09 21:16 | CT Report ---
PROCEDURE: CT KUB INDICATIONS: left abd pain, recent stent with fall out. TECHNIQUE: A CT scan of the abdomen and pelvis was performed without the use of intravenous contrast. Images were recorded and evaluated at appropriate window settings. Reformats: coronal and sagittal. For radiation dose reduction, the following was used: automated exposure control, adjustment of mA and/or kV according to patient size. COMPARISON: Fluoroscopic images from stent placement 03/08/2025. CT KUB 12/23/2024. FINDINGS: Image quality: Diagnostic. Lower chest: Dependent atelectasis. No pleural effusion. TAVR stent. Liver: No contour-deforming mass. Gallbladder: Possible sludge. No pericholecystic fluid. Biliary tree: No intrahepatic or extrahepatic dilation, accounting for age. Spleen: No splenomegaly. Pancreas: No pancreatic ductal dilation. Adrenals: No adrenal nodule. Kidneys and ureters: Low density right renal cyst. Suspect left peripelvic cyst. Perinephric stranding. No right hydronephrosis. Nonobstructing right kidney stone measuring 0.4 cm. Mild left hydronephrosis. Mild left hydroureter. Left proximal ureter obstructing calculus measuring 0.5 cm. Left distal ureter at the pelvic brim obstructing calculus measuring 0.5 cm. Left distal ureter obstructing calculi measuring 0.5 cm and 0.3 cm. Stomach, bowel and peritoneum: No gastric or small bowel dilation. No abnormal wall thickening. No pathologic free fluid. The appendix is not seen. Lymph nodes: No central or retroperitoneal adenopathy. Vessels: No infrarenal aortic aneurysm. Reproductive organs: Anteverted uterus. Bladder: Not significantly distended. No stones in the urinary bladder. Small amount of gas in the bladder. Pelvic lymph nodes: No adenopathy by size criteria. Bones: No aggressive osseous abnormality. Right L5 pars defect. Multilevel DDD. Other: Small fat-containing umbilical hernia. No definite inguinal hernia. IMPRESSION: 1. Mild left hydronephrosis. Multiple (at least 4) small stones in the left ureter measuring up to 0.5 cm. Suspect left kidney lithotripsy. 2. Scant air in the bladder. Likely iatrogenic. No stone in the bladder. 3. Small nonobstructing right kidney stone. Reviewed by: Isaac Clark MD on 03/09/2025 9:13 PM PDT Approved by: Isaac Clark MD on 03/09/2025 9:13 PM PDT Station ID: [id number]
[2025-03-09] MEDS ORDERED: ACETAMINOPHEN 325 MG TABLET PO PRN (21:22)
[2025-03-09] MEDS ORDERED: SODIUM CHLORIDE FLUSH 0.9% 10 ML SYRINGE IVP PRN (21:22)
[2025-03-09] MEDS ORDERED: ONDANSETRON 4 MG/2 ML VIAL IVP PRN (21:22)
[2025-03-09] MEDS: cefTRIAXone 1 GM VIAL IVP STA (22:20)
[2025-03-09] MEDS: LACTATED RINGERS 1,000 ML IV SCH (22:23)
[2025-03-09] MEDS: SODIUM CHLORIDE FLUSH 0.9% 10 ML SYRINGE IVP SCH (22:23)
[2025-03-10] MEDS: HYDROmorphone 0.5 MG/0.5 ML SYRINGE IVP PRN (00:29)
[2025-03-10 06:06] LABS: HCT - HEMATOCRIT 38.6 % (37.0-47.0); HGB - HEMOGLOBIN 11.7 g/dL (12.0-16.0); MEAN PLATELET VOLUME 9.4 fL (7.9-10.8); NRBC ABSOLUTE COUNT (AUTO) 0.00 x10^3/uL; NUCLEATED RED BLOOD CELLS AUTO 0.0 /100WBC; PLT - PLATELET COUNT 160 10^3/uL (130-450); RED CELL DISTRIBUTION WIDTH 14.7 % (12.0-15.0)
[2025-03-10 06:23] LABS: BUN - BLOOD UREA NITROGEN 32.0 mg/dL (6-20); CARBON DIOXIDE - CO2 27.0 mmol/L (21-32); CREATININE 2.1 mg/dL (0.6-1.3); GFR - MDRD 23.0 (>89)
[2025-03-10] MEDS: cefTRIAXone 1 GM VIAL IVP ONE (06:58)
[2025-03-10 10:33] LABS: HCG UR QUAL NEGATIVE
[2025-03-10 10:46] LABS: GLUCOSE, URINE (UA) NEGATIVE (NEGATIVE); KETONES,URINE (UA) NEGATIVE (NEGATIVE); OCCULT BLOOD,URINE NEGATIVE (NEGATIVE)
[2025-03-10 11:01] LABS: SQUAMOUS EPITHELIAL CELL,UR MOD Squamous (<= Few); WBC CLUMPS,URINE PRESENT
--- NOTE | 2025-03-10 14:28 | PHARMACY PROGRESS NOTE ---
Best Possible Medication History Admit Date and Time: 03/09/252026 Home Medications Medication Instructions Recorded Confirmed Type Permanent Disabled Placard 04/23/24 03/08/25 History rosuvastatin 5 mg tablet (Crestor) 5 mg PO QPM #90 tab s 04/23/24 03/10/25 Rx fluoxetine 60 mg tablet 60 mg PO QAM #90 tabs 03/10/25 Rx aspirin 81 mg tablet 81 mg PO DAILY 12/31/2402/18 History buspirone 10 mg tablet 20 mg (2 x 10 mg) PO BID #18 0 tabs 03/02/25 03/10/25 Rx mirabegron 25 mg tablet,extended 25 mg PO DAILY 03/10/25 History release 24 hr (Myrbetriq) Processed by: Pharmacy (Medication reconciliation completed by [facility]) Medications reviewed in ED?: No Medication History completed: Yes Patient Interview: Completed Secondary Source(s): Insurance records (likely out of [place] by now, but leaving on list per patient) [facility] Statement: As the person ultimately responsible for medication therapy, providers are able to order a medication from an existing home medication list in [facility] via the "Reconcile Routine" prior to Confirmation of that medication by community support professional. Such practice is discouraged except when the physician, in their clinical judgment, deems that a medical need exists for a medication without regard to previous use.
[2025-03-10] MEDS ORDERED: LIDOCAINE-PF 2% 10 ML AMP SUBQ ONE (15:18)
[2025-03-10] MEDS ORDERED: fentaNYL 100 MCG/2 ML VIAL ONE (15:19)
[2025-03-10] MEDS ORDERED: ROCURONIUM 50 MG/5 ML VIAL ONE (15:19)
[2025-03-10] MEDS ORDERED: HYDROmorphone 0.5 MG/0.5 ML SYRINGE IVP PRN (15:41)
[2025-03-10] MEDS ORDERED: MORPHINE 2 MG/ML CARPUJECT IVP PRN (15:41)
[2025-03-10] MEDS ORDERED: NALOXONE 0.4 MG/ML VIAL IVP PRN (15:41)
[2025-03-10] MEDS ORDERED: ATROPINE ABBOJECT 1 MG/10 ML SYRINGE IVP PRN (15:41)
[2025-03-10] MEDS ORDERED: METOCLOPRAMIDE 10 MG/2 ML VIAL IVP PRN (15:41)
[2025-03-10] MEDS ORDERED: ONDANSETRON 4 MG/2 ML VIAL IVP PRN (15:41)
[2025-03-10] MEDS ORDERED: fentaNYL 100 MCG/2 ML VIAL IVP PRN (15:41)
[2025-03-10] MEDS ORDERED: ePHEDrine 50 MG/ML VIAL IVP PRN (15:41)
--- NOTE | 2025-03-10 15:41 | ANESTHESIA PROCEDURE NOTE ---
Pre-Anesthesia VS, & Labs Diagnosis Surgical Diagnosis:: kidney stones Procedure Procedure: L cysto, ureteroscopy, stent placement, possible laser Vitals Vital Signs: Temp Pulse Resp BP Pulse Ox 37.1 C 96 20 124/59 L 94 03/10/25 13:00 03/10/25 13:00 03/10/25 13:00 03/10/25 13:00 03/10/25 13:00 Is Patient ?: No Lab Results Current Lab Results: Laboratory Tests 03/10/25 10:29: POC Whole Bld Glucose 140 03/10/25 05:53: WBC 14.6 H, RBC 4.19 L, Hgb 11.7 L, Hct 38.6, MCV 92.1, MCH 27.9, MCHC 30.3 L, RDW 14.7, Plt Count 160, MPV 9.4, Neut # (Auto) 13.0 H, Lymph # (Auto) 0.5 L, [place] # (Auto) 1.0, Eos # (Auto) 0.0, Baso # (Auto) 0.0, Absolute Nucleated RBC 0.00, Nucleated RBC % 0.0, Sodium 137, Potassium 4.6 H, Chloride 103, Carbon Dioxide 27, Anion Gap 7.0, BUN 32 H, Creatinine 2.1 H, Estimated GFR (MDRD) 23 L, Glucose 138 H, Calcium 8.8 03/09/25 19:21: WBC 15.2 H, RBC 4.12 L, Hgb 11.4 L, Hct 37.8, MCV 91.7, MCH 27.7, MCHC 30.2 L, RDW 14.8, Plt Count 156, MPV 9.2, Neut # (Auto) 14.0 H, Lymph # (Auto) 0.5 L, [place] # (Auto) 0.6, Eos # (Auto) 0.0, Baso # (Auto) 0.0, Absolute Nucleated RBC 0.00, Nucleated RBC % 0.0, Sodium 137, Potassium 4.3, Chloride 104, Carbon Dioxide 27, Anion Gap 6.0, BUN 32 H, Creatinine 1.8 H, Estimated GFR (MDRD) 27 L, Glucose 146 H, Calcium 8.8, Total Bilirubin 0.3, AST 21, ALT 9 L, Alkaline Phosphatase 64, Total Protein 6.8, Albumin 3.5, Globulin 3.3, Albumin/Globulin Ratio 1.1, Lipase 27 03/10/25 05:53 03/10/25 05:53 Meds/Allgy Home Medications Ambulatory Orders Medication Instructions Recorded Confirmed Permanent Disabled Placard 04/23/24 03/08/25 rosuvastatin 5 mg tablet (Crestor) 5 mg PO QPM #90 tab s 04/23/24 03/10/25 fluoxetine 60 mg tablet 60 mg PO QAM #90 tabs 03/10/25 aspirin 81 mg tablet 81 mg PO DAILY 12/31/2402/18 buspirone 10 mg tablet 20 mg (2 x 10 mg) PO BID #18 0 tabs 03/02/25 03/10/25 mirabegron 25 mg tablet,extended 25 mg PO DAILY 03/10/25 release 24 hr (Myrbetriq) Allergies Allergies Allergy/AdvReac Type Severity Reaction Status Date / Time nitrofurantoin Allergy Severe Hives, Verified 03/09/25 19:17 syncope adhesive tape AdvReac Mild Rash Verified 03/09/25 19:17 Sulfa (Sulfonamide AdvReac Unknown Nausea Verified 03/09/25 19:17 Antibiotics) PFSH Active Problems All Active Problems (Updated 03/09/25 @ 20:29 by SOUTH Berrios) S/P TAVR (transcatheter aortic valve replacement) (Acute) Acute kidney injury (Acute) Obstructive pyelonephritis (Acute) Kidney stone (Acute) Acute meniscal tear of right knee (Acute) Knee pain, bilateral (Acute) Hydronephrosis, left (Chronic) Allergic rhinitis (Chronic) Asymptomatic bacteriuria (Chronic) Actinic keratosis (Chronic) Aortic stenosis (Chronic) Hyperglycemia (Chronic) Hyperlipidemia (Chronic) Urge incontinence (Chronic) Gout (Chronic) Eczema (Chronic) Fatty liver disease, nonalcoholic (Chronic) Hypertension, essential, benign (Chronic) Generalized anxiety disorder (Chronic) Major depressive disorder, recurrent, mild (Chronic) Caregiver lives at distance (Chronic) Kidney stone on right side (Chronic) Chronic kidney insufficiency (Chronic) Medical History Medical History (Updated 03/09/25 @ 20:29 by SOUTH Berrios) Gastric diverticulum Hx of adenomatous colonic polyps Chronic low back pain Surgical History Surgical History (Updated 03/09/25 @ 21:57 by SOUTH Berrios) Hx of appendectomy History of tonsillectomy and adenoidectomy Hx of aortic valve repair Family History Family History Father Heart attack Thyroid disorder Mother Ovarian cancer Thyroid disorder Sister Thyroid disorder Sister Thyroid disorder Social History Social History (Updated 01/21/25 @ 11:48 by NIRMALA BOWDEN LPN) Smoking Status: Former smoker If you are a former smoker, when did you quit? (Date/Year): 1974 Number of Years Smoked: 3 How many cigarettes a day do you smoke? (20 cigarettes=1 Pk): 2 Second hand tobacco smoke exposure: Yes Do you dip or chew tobacco?: No Do you vape?: No Living arrangement: At home Marital Status: Living Condition: Alone Has a Durable Power of [place] for Health Care?: Yes DPOA on file?: No Has Health Care Directive?: Yes Health Care Directive on file?: No Level: Assisted Do you feel safe in your home environment?: Yes History of physical, verbal, emotional, or financial abuse?: No ETOH Use: None Substance Use: denies use POLST Patient has POLST: No Anesthesia Exam (Expanded) Exam General: Alert, Oriented x3 and Cooperative Dental: WNL Mouth Opening: Greater than 4 Fingerbreadths Neck Mobility: Normal Mallampati classification: II Thyromental Distance: greater than 6 cm Respiratory: Lungs clear Exam Exam Vital Signs: Vital Signs x48h Temp Pulse Resp BP Pulse Ox 03/10/25 13:00 37.1 C 96 20 124/59 L 94 03/10/25 08:18 37.5 C 91 16 137/68 H 95 Plan Problem List (1) Kidney stone: Plan: Left kidney stone debris in ureter, GABRIELA Add-on for cystoscopy, left ureteroscopy, laser lithotripsy, stent. I will leave the stent in for 3 weeks this time. She will have a cystoscopy and removal in the office. We discussed the risk, benefits and alternatives of procedure. Specific risks of infection, bleeding, injury to adjacent structures, need for additional procedures, failure of therapy, stent colic were discussed. We discussed anesthesia risk. Patient states understanding and consents to the above plan Continue ceftriaxone for now Plan Anesthesia Type: General Consent for Procedure(s) Verified and Reviewed: Yes Code Status: Attempt Resuscitation ASA Classification ASA classification: 3-Severe systemic disease Is this case an emergency?: No
[2025-03-10] MEDS ORDERED: LIDOCAINE 2% URO-JET 5 ML SYRINGE UR ONE (15:56)
[2025-03-10] MEDS ORDERED: iohexoL-240 20 ML VIAL IVP ONE (15:56)
[2025-03-10] MEDS ORDERED: ePHEDrine 50 MG/ML VIAL IVP ONE (17:07)
[2025-03-10] MEDS ORDERED: SUGAMMADEX 200 MG/2 ML VIAL IVP ONE (17:07)
[2025-03-10] MEDS ORDERED: DEXAMETHASONE 4 MG/ML VIAL ONE (17:10)
[2025-03-10] MEDS ORDERED: ONDANSETRON 4 MG/2 ML VIAL ONE (17:10)
--- NOTE | 2025-03-10 17:11 | OPERATIVE REPORT ---
Operative Report General Admit Date: 03/10/25 Procedure Data: Operation Date: 03/10/25 16:30 Proposed Procedures p CYSTO, URETEROSCOPE L STENT PLACEMENT POSSIBLE LASER(Left) - Parrish Shields MD Actual Procedures p CYSTO, URETEROSCOPE L STENT PLACEMENT POSSIBLE LASER(Left) - Parrish Shields MD Pre-Op Diagnosis: ACUTE KIDNEY INJURY Anesthesia Type General Case Staff Anesthesia Provider: Yolanda Song Case Times Procedure End: 03/10/25 17:03 Pre-Op Diagnosis: left ureteral obstruction Post Op Diagnosis: same Procedure Note Pathology: bladder urine for culture Findings: left purulent urine Complications: stent placed only Other Other Information/Narrative: After informed consent was obtained the patient was brought to the OR and laid in the supine position. The patient was anesthetized per anesthesia protocol t hen prepped and draped in usual sterile fashion in the dorsolithotomy position. A formal timeout was performed reconfirming the patient and procedure and laterality. A 22 Albanian cystoscope was advanced easily per urethra into the urinary bladder. The bladder was inspected in full there were no masses or lesions or other concerns. Her left ureteral orifice had edema and appeared quite tight. A sensor wire was able to cannulate the UO but it was quite tight. Under fluoroscopic guidance the wire went all way up to the kidney. There was immediate gush of purulent urine. The specimen this was sent for culture. Given the appearance of the purulence we elected not to proceed with a ureteroscopy and so a 6 Albanian 26 cm times patient good curling over the kidney and good curling noted in the bladder. The bladder was emptied and Uro-Jet was used This concluded the procedure the patient tolerated procedure well. She was brought to PACU without further incident
[2025-03-10] MEDS ORDERED: METOPROLOL 5 MG/5 ML VIAL IVP ONE (17:12)
[2025-03-10] MEDS ORDERED: LACTATED RINGERS 1,000 ML IV PRN (17:24)
[2025-03-10] MEDS ORDERED: ACETAMINOPHEN 1,000 MG/100 ML 1,000 MG/100 ML BAG IV ONE (17:24)
[2025-03-10] MEDS: ACETAMINOPHEN 1,000 MG/100 ML 1,000 MG/100 ML BAG IV ONE (17:28)
--- NOTE | 2025-03-10 17:38 | ANESTHESIA POST OP EVALUATION ---
Anesthesia Post Eval Post Anesthesia Eval Vitals: Last Vital Signs Temp 38.4 C H 03/10/25 17:30 Pulse 86 03/10/25 17:30 Resp 17 03/10/25 17:30 BP 133/66 H 03/10/25 17:30 Pulse Ox 98 03/10/25 17:30 O2 Flow Rate 8 03/10/25 17:30 CV Function Including HR & BP: Stable Pain Control: Satisfactory Nausea & Vomiting: Negative Mental Status: Baseline Respiratory Status: Airway Patent Hydration Status: Satisfactory Anesthesia Complications: None
[2025-03-10 17:59] LABS: GLUCOSE, URINE (UA) NEGATIVE (NEGATIVE); KETONES,URINE (UA) NEGATIVE (NEGATIVE); OCCULT BLOOD,URINE LARGE (NEGATIVE)
[2025-03-10 18:08] LABS: SQUAMOUS EPITHELIAL CELL,UR RARE Squamous (<= Few); WBC CLUMPS,URINE PRESENT
--- NOTE | 2025-03-10 18:26 | PROVIDER PROGRESS NOTE ---
Subjective Prog Note Date Prog Note Date: 03/10/25 Subjective Pt reports feeling: Improved Current Medications Current Medications Current Medications: Current Medications Generic Name Dose Route Start Last Admin Trade Name Thomas PRN Reason Stop Dose Admin Acetaminophen 650 mg 03/09/25 21:22 Acetaminophen 325 Mg Tablet PO Q4HR PRN Pain 1 to 4, or Fever Hydromorphone HCl 0.5 mg 03/09/25 21:22 03/10/25 00:29 Hydromorphone 0.5 Mg/0.5 Ml Syringe IVP 0.5 mg Q2H PRN Administration Pain 8 to 10 Lactated Ringer's 1,000 mls @ 100 mls/hr 03/09/25 22:00 03/10/25 08:27 Lr IV 100 mls/hr .Q10H KEVON Administration Lactated Ringer's 1,000 mls @ 0 mls/hr 03/10/25 17:24 Lr IV .Q0M PRN preop TKO Ondansetron HCl 4 mg 03/09/25 21: Ondansetron 4 Mg/2 Ml Vial IVP Q6HR PRN Nausea / Vomiting Sodium Chloride 10 ml 03/09/25 21:22 Sodium Chloride Flush 0.9% 10 Ml Syringe IVP PRN PRN NEEDED PER PROVIDER ORDERS Sodium Chloride 10 ml 03/10/25 01:00 03/10/25 16:29 Sodium Chloride Flush 0.9% 10 Ml Syringe IVP Not Given 0100,0900,1700 KEVON Objective Vital Signs/Intake & Output Reviewed Vital Signs: Yes Vital Signs: Vital Signs x48h Temp Pulse Pulse Resp BP BP BP 03/10/25 18:08 37 C 77 18 124/61 03/10/25 17:51 82 21 125/62 03/10/25 17:51 38.1 C H 82 16 125/62 03/10/25 17:46 85 21 101/47 L 03/10/25 17:46 86 16 101/47 L 03/10/25 17:42 86 17 125/44 L 03/10/25 17:36 88 17 104/66 03/10/25 17:30 87 24 133/66 H 03/10/25 17:30 38.4 C H 86 17 133/66 H 03/10/25 17:30 88 17 133/66 H 03/10/25 17:25 90 19 123/57 L 03/10/25 17:22 38.5 C H 89 18 121/64 03/10/25 17:22 89 03/10/25 16:16 37.1 C 107 H 16 129/62 03/10/25 13:00 37.1 C 96 20 124/59 L Pulse Ox O2 Flow Rate 03/10/25 18:08 97 2 03/10/25 17:51 96 3 03/10/25 17:51 97 3 03/10/25 17:46 95 03/10/25 17:46 94 3 03/10/25 17:42 95 03/10/25 17:36 96 03/10/25 17:30 98 03/10/25 17:30 98 8 03/10/25 17:30 98 03/10/25 17:25 97 8 03/10/25 17:22 97 8 03/10/25 17:22 99 03/10/25 16:16 95 03/10/25 13:00 94 Intake & Output: Intake & Output 03/07/25 03/08/25 03/09/25 03/10/25 23:59 23:59 23:59 23:59 Intake Total 1000 / 1000 Output Total 100 / 100 Balance -100 / -100 1000 / 1000 Weight (kg) 119.5 kg 119.5 kg Objective General Appearance: positive No acute distress and Alert Eyes Bilateral: positive Normal inspection ENT: positive ENT inspection nml Neck: positive Nml inspection Respiratory: positive Chest non-tender Cardiovascular: positive Regular rate & rhythm Abdomen: positive Non-tender Back: positive Nml inspection Skin: positive Color nml Extremities: positive Non-tender Neurologic/Psychiatric: positive Oriented x3 Lab Results 03/10/25 05:53 03/10/25 05:53 Other Labs: Lab Results x24hrs 03/10/25 03/10/25 03/10/25 Range/Units 17:50 10:29 10:19 WBC (4.8-10.8) x10^3/uL RBC (4.20-5.40) 10^6/uL Hgb (12.0-16.0) g/dL Hct (37.0-47.0) % MCV (81.0-99.0) fL MCH (27.0-31.0) pg MCHC (32.0-36.0) g/dL RDW (12.0-15.0) % Plt Count (130-450) 10^3/uL MPV (7.9-10.8) fL Neut # (Auto) (1.5-6.6) 10^3/uL Lymph # (Auto) (1.5-3.5) 10^3/uL [place] # (Auto) (0.0-1.0) 10^3/uL Eos # (Auto) (0.0-0.7) 10^3/uL Baso # (Auto) (0.0-0.1) 10^3/uL Absolute Nucleated RBC x10^3/uL Nucleated RBC % /100WBC Sodium (135-145) mmol/L Potassium (3.5-4.5) mmol/L Chloride (101-111) mmol/L Carbon Dioxide (21-32) mmol/L Anion Gap (6-13) BUN (6-20) mg/dL Creatinine (0.6-1.3) mg/dL Estimated GFR (MDRD) (>89) Glucose (74-104) mg/dL POC Whole Bld Glucose 140 (70-100) mg/dL Calcium (8.5-10.3) mg/dL Total Bilirubin (0.2-1.0) mg/dL AST (10-42) IU/L ALT (10-60) IU/L Alkaline Phosphatase (42-121) IU/L Total Protein (6.4-8.9) g/dL Albumin (3.2-5.5) g/dL Globulin (2.1-4.2) g/dL Albumin/Globulin Ratio (1.0-2.2) Lipase (11-82) U/L Urine Color PINK DARK YELLOW Urine Clarity CLOUDY SL. CLOUDY (CLEAR) Urine pH 6.0 6.0 (5.0-7.5) PH Ur Specific [place] 1.010 1.025 (1.002-1.030) Urine Protein NEGATIVE 30 H (NEGATIVE) mg/dL Urine Glucose (UA) NEGATIVE NEGATIVE (NEGATIVE) mg/dL Urine Ketones NEGATIVE NEGATIVE (NEGATIVE) mg/dL Urine Occult Blood LARGE NEGATIVE (NEGATIVE) Urine Nitrite NEGATIVE NEGATIVE (NEGATIVE) Urine Bilirubin NEGATIVE SMALL H (NEGATIVE) Urine Urobilinogen 0.2 (NORMAL) 0.2 (NORMAL) (NORMAL) E.U./dL Ur Leukocyte Esterase LARGE H NEGATIVE (NEGATIVE) Urine RBC TNTC H TNTC H (0-5) /HPF Urine WBC >25 H >25 H (0-5) /HPF Urine WBC Clumps PRESENT PRESENT Ur Squamous Epith Cells RARE Squamous MOD Squamous H (<= Few) Urine Bacteria Rare Few (None Seen) /HPF Ur Microscopic Review INDICATED INDICATED Urine Culture Comments INDICATED NOT INDICATED Urine HCG, Qual NEGATIVE 03/10/25 03/09/25 Range/Units 05:53 19:21 WBC 14.6 H 15.2 H (4.8-10.8) x10^3/uL RBC 4.19 L 4.12 L (4.20-5.40) 10^6/uL Hgb 11.7 L 11.4 L (12.0-16.0) g/dL Hct 38.6 37.8 (37.0-47.0) % MCV 92.1 91.7 (81.0-99.0) fL MCH 27.9 27.7 (27.0-31.0) pg MCHC 30.3 L 30.2 L (32.0-36.0) g/dL RDW 14.7 14.8 (12.0-15.0) % Plt Count 160 156 (130-450) 10^3/uL MPV 9.4 9.2 (7.9-10.8) fL Neut # (Auto) 13.0 H 14.0 H (1.5-6.6) 10^3/uL Lymph # (Auto) 0.5 L 0.5 L (1.5-3.5) 10^3/uL [place] # (Auto) 1.0 0.6 (0.0-1.0) 10^3/uL Eos # (Auto) 0.0 0.0 (0.0-0.7) 10^3/uL Baso # (Auto) 0.0 0.0 (0.0-0.1) 10^3/uL Absolute Nucleated RBC 0.00 0.00 x10^3/uL Nucleated RBC % 0.0 0.0 /100WBC Sodium 137 137 (135-145) mmol/L Potassium 4.6 H 4.3 (3.5-4.5) mmol/L Chloride 103 104 (101-111) mmol/L Carbon Dioxide 27 27 (21-32) mmol/L Anion Gap 7.0 6.0 (6-13) BUN 32 H 32 H (6-20) mg/dL Creatinine 2.1 H 1.8 H (0.6-1.3) mg/dL Estimated GFR (MDRD) 23 L 27 L (>89) Glucose 138 H 146 H (74-104) mg/dL POC Whole Bld Glucose (70-100) mg/dL Calcium 8.8 8.8 (8.5-10.3) mg/dL Total Bilirubin 0.3 (0.2-1.0) mg/dL AST 21 (10-42) IU/L ALT 9 L (10-60) IU/L Alkaline Phosphatase 64 (42-121) IU/L Total Protein 6.8 (6.4-8.9) g/dL Albumin 3.5 (3.2-5.5) g/dL Globulin 3.3 (2.1-4.2) g/dL Albumin/Globulin Ratio 1.1 (1.0-2.2) Lipase 27 (11-82) U/L Urine Color Urine Clarity (CLEAR) Urine pH (5.0-7.5) PH Ur Specific [place] (1.002-1.030) Urine Protein (NEGATIVE) mg/dL Urine Glucose (UA) (NEGATIVE) mg/dL Urine Ketones (NEGATIVE) mg/dL Urine Occult Blood (NEGATIVE) Urine Nitrite (NEGATIVE) Urine Bilirubin (NEGATIVE) Urine Urobilinogen (NORMAL) E.U./dL Ur Leukocyte Esterase (NEGATIVE) Urine RBC (0-5) /HPF Urine WBC (0-5) /HPF Urine WBC Clumps Ur Squamous Epith Cells (<= Few) Urine Bacteria (None Seen) /HPF Ur Microscopic Review Urine Culture Comments Urine HCG, Qual Assessment/Plan Problem List (1) Obstructive pyelonephritis: Impression: OR today for cystoscopy, ureteroscopy with left stent placement N.p.o. preop Continue Rocephin 1 g IV push daily Likely needs suppressive antibiotics after discharge (2) S/P TAVR (transcatheter aortic valve replacement): Impression: Last seen by cardiology in [place], Dr. Logan Rodrigues 12/17/2024. Patient is status post TAVR in 2019. She has coronary artery disease. Last echocardiogram was in August 2022 normal LV size and wall thickness with a normal LV ejection fraction. The plan at that time was to repeat echocardiogram. I do not have any record of that being done. She should have this completed for followup as an outpatient.
[2025-03-10] MEDS ORDERED: SODIUM CHLORIDE FLUSH 0.9% 10 ML SYRINGE IVP PRN (18:59)
[2025-03-10] MEDS: LACTATED RINGERS 1,000 ML IV SCH (19:23)
--- NOTE | 2025-03-11 08:42 | PROVIDER PROGRESS NOTE ---
Subjective General Admit Date: 03/10/25 Procedure Date: 03/08/25 Post Op Days: 3 Procedure Performed: left ureteral stent 03/10/25 Other Other Information/Narrative: Subjectively the patient feels much better. More energy. She is very happy. Denies significant colicky pains. She did have a fever to 38.1 yesterday night. White count stable around 14. Doing well. Exam Exam Vital Signs: Vital Signs x48h Temp Pulse Resp BP Pulse Ox 03/11/25 05:20 37.1 C 67 20 131/67 H 96 nad in bed ABX Reporting Has patient been on IV antibiotics over the past 48 hours?: Yes Impression/Plan Problem List (1) Obstructive pyelonephritis: Plan: Left ureteral stent placed 03/10/25 Patient should go home when cleared from medicine. I am hoping today or tomorrow. Should go home on a treatment course of antibiotics which I will prescribe along with suppression antibiotics afterwards. I will arrange a CT scan in roughly 2 weeks time to assess any further burden of stone and consider repeat ureteroscopy versus stent removal
[2025-03-11] MEDS: FLUoxetine 10 MG CAPSULE PO SCH (08:48)
[2025-03-11] MEDS: cefTRIAXone 1 GM VIAL IVP SCH (08:49)
[2025-03-11] MEDS: ENOXAPARIN 40 MG/0.4 ML SYRINGE SUBQ SCH (08:49)
--- NOTE | 2025-03-11 09:10 | XRAY Report ---
PROCEDURE: [place] OR C-Arm Procedure INDICATIONS: Surgical Procedure FLUORO TIME: 0.01 MIN TECHNIQUE: Intraoperative fluoroscopic films obtained for a medical procedure. COMPARISON: None. FINDINGS/IMPRESSION: Intraoperative fluoroscopic films obtained for a medical procedure. Please see operative note. Reviewed by: Trevor Mendez MD on 03/11/2025 9:06 AM PDT Approved by: Trevor Mendez MD on 03/11/2025 9:06 AM PDT Station ID: [id number]
[2025-03-11 10:46] LABS: HCT - HEMATOCRIT 35.7 % (37.0-47.0); HGB - HEMOGLOBIN 11.1 g/dL (12.0-16.0); MEAN PLATELET VOLUME 9.9 fL (7.9-10.8); NRBC ABSOLUTE COUNT (AUTO) 0.00 x10^3/uL; NUCLEATED RED BLOOD CELLS AUTO 0.0 /100WBC; PLT - PLATELET COUNT 156 10^3/uL (130-450); RED CELL DISTRIBUTION WIDTH 14.5 % (12.0-15.0)
[2025-03-11 10:59] LABS: CARBON DIOXIDE - CO2 28.0 mmol/L (21-32)
[2025-03-11 11:00] LABS: BUN - BLOOD UREA NITROGEN 34.0 mg/dL (6-20); CREATININE 1.7 mg/dL (0.6-1.3); GFR - MDRD 29.0 (>89)
--- NOTE | 2025-03-11 14:50 | PROVIDER PROGRESS NOTE ---
Subjective Prog Note Date Prog Note Date: 03/11/25 Subjective Pt reports feeling: No change Current Medications Current Medications Current Medications: Current Medications Generic Name Dose Route Start Last Admin Trade Name Freq PRN Reason Stop Dose Admin Acetaminophen 650 mg 03/09/25 21:22 Acetaminophen 325 Mg Tablet PO Q4HR PRN Pain 1 to 4, or Fever Buspirone HCl 20 mg 03/10/25 21:00 03/11/25 08:49 Buspirone 5 Mg Tablet PO 20 mg BID KEVON Administration Ceftriaxone Sodium 1 gm 03/11/25 09:00 03/11/25 08:49 Ceftriaxone 1 Gm Vial IVP 1 gm DAILY KEVON Administration Enoxaparin Sodium 40 mg 03/11/25 09:00 03/11/25 08:49 Enoxaparin 40 Mg/0.4 Ml Syringe SUBQ 40 mg DAILY KEVON Administration Fluoxetine HCl 60 mg 03/11/25 09:00 03/11/25 08:48 Fluoxetine 10 Mg Capsule PO 60 mg DAILY KEVON Administration Hydromorphone HCl 0.5 mg 03/09/25 21:22 03/10/25 00:29 Hydromorphone 0.5 Mg/0.5 Ml Syringe IVP 0.5 mg Q2H PRN Administration Pain 8 to 10 Lactated Ringer's 1,000 mls @ 100 mls/hr 03/09/25 22:00 03/11/25 07:03 Lr IV 100 mls/hr .Q10H KEVON Administration Ondansetron HCl 4 mg 03/09/25 21:22 Ondansetron 4 Mg/2 Ml Vial IVP Q6HR PRN Nausea / Vomiting Sodium Chloride 10 ml 03/09/25 21:22 Sodium Chloride Flush 0.9% 10 Ml Syringe IVP PRN PRN NEEDED PER PROVIDER ORDERS Sodium Chloride 10 ml 03/10/25 01:00 03/11/25 08:49 Sodium Chloride Flush 0.9% 10 Ml Syringe IVP 10 ml 0100,0900,1700 KEVON Administration Sodium Chloride 10 ml 03/10/25 18:59 Sodium Chloride Flush 0.9% 10 Ml Syringe IVP PRN PRN NEEDED PER PROVIDER ORDERS Objective Vital Signs/Intake & Output Reviewed Vital Signs: Yes Vital Signs: Vital Signs x48h Temp Pulse Resp BP Pulse Ox 03/11/25 13:00 37.2 C 73 18 103/49 L 97 03/11/25 08:46 37.0 C 62 20 130/62 94 Intake & Output: Intake & Output 03/08/25 03/09/25 03/10/25 03/11/25 23:59 23:59 23:59 23:59 Intake Total 2250 / 2250 1405 / 1405 Output Total 100 / 100 450 / 450 Balance -100 / -100 2250 / 2250 955 / 955 Weight (kg) 119.5 kg 119.5 kg Objective General Appearance: positive No acute distress and Alert Eyes Bilateral: positive Normal inspection ENT: positive ENT inspection nml Neck: positive Nml inspection Respiratory: positive Chest non-tender Cardiovascular: positive Regular rate & rhythm Abdomen: positive Non-tender Back: positive Nml inspection Skin: positive Color nml Extremities: positive Non-tender Neurologic/Psychiatric: positive Oriented x3 Lab Results 03/11/25 10:39 03/11/25 10:39 Other Labs: Lab Results x24hrs 03/11/25 03/10/25 Range/Units 10:39 17:50 WBC 11.4 H (4.8-10.8) x10^3/uL RBC 3.95 L (4.20-5.40) 10^6/uL Hgb 11.1 L (12.0-16.0) g/dL Hct 35.7 L (37.0-47.0) % MCV 90.4 (81.0-99.0) fL MCH 28.1 (27.0-31.0) pg MCHC 31.1 L (32.0-36.0) g/dL RDW 14.5 (12.0-15.0) % Plt Count 156 (130-450) 10^3/uL MPV 9.9 (7.9-10.8) fL Neut # (Auto) 10.8 H (1.5-6.6) 10^3/uL Lymph # (Auto) 0.4 L (1.5-3.5) 10^3/uL [place] # (Auto) 0.2 (0.0-1.0) 10^3/uL Eos # (Auto) 0.0 (0.0-0.7) 10^3/uL Baso # (Auto) 0.0 (0.0-0.1) 10^3/uL Absolute Nucleated RBC 0.00 x10^3/uL Nucleated RBC % 0.0 /100WBC Sodium 138 (135-145) mmol/L Potassium 4.0 (3.5-4.5) mmol/L Chloride 104 (101-111) mmol/L Carbon Dioxide 28 (21-32) mmol/L Anion Gap 6.0 (6-13) BUN 34 H (6-20) mg/dL Creatinine 1.7 H (0.6-1.3) mg/dL Estimated GFR (MDRD) 29 L (>89) Glucose 175 H (74-104) mg/dL Calcium 9.0 (8.5-10.3) mg/dL Urine Color PINK Urine Clarity CLOUDY (CLEAR) Urine pH 6.0 (5.0-7.5) PH Ur Specific [place] 1.010 (1.002-1.030) Urine Protein NEGATIVE (NEGATIVE) mg/dL Urine Glucose (UA) NEGATIVE (NEGATIVE) mg/dL Urine Ketones NEGATIVE (NEGATIVE) mg/dL Urine Occult Blood LARGE (NEGATIVE) Urine Nitrite NEGATIVE (NEGATIVE) Urine Bilirubin NEGATIVE (NEGATIVE) Urine Urobilinogen 0.2 (NORMAL) (NORMAL) E.U./dL Ur Leukocyte Esterase LARGE H (NEGATIVE) Urine RBC TNTC H (0-5) /HPF Urine WBC >25 H (0-5) /HPF Urine WBC Clumps PRESENT Ur Squamous Epith Cells RARE Squamous (<= Few) Urine Bacteria Rare (None Seen) /HPF Ur Microscopic Review INDICATED Urine Culture Comments INDICATED Assessment/Plan Problem List (1) Obstructive pyelonephritis: Impression: OR 03/10 for cystoscopy, ureteroscopy with left stent placement Continue Rocephin 2 g IV push daily Likely needs suppressive antibiotics after discharge (2) S/P TAVR (transcatheter aortic valve replacement): Impression: Last seen by cardiology in [place], Dr. Logan Rodrigues 12/17/2024. Patient is status post TAVR in 2019. She has coronary artery disease. Last echocardiogram was in August 2022 normal LV size and wall thickness with a normal LV ejection fraction. The plan at that time was to repeat echocardiogram. I do not have any record of that being done. She should have this completed for followup as an outpatient. (3) Bacteremia: Impression: Blood culture PCR identified Proteus I have increased dose of Rocephin to 2 g IV push Will keep her here in the hospital until we get official culture results
[2025-03-11] MEDS: cefTRIAXone 1 GM VIAL IVP STA (15:54)
[2025-03-11] MEDS: COD LIVER OIL/ZINC OXIDE 113 GM TUBE TOP PRN (22:06)
[2025-03-12 08:08] LABS: HCT - HEMATOCRIT 33.6 % (37.0-47.0); HGB - HEMOGLOBIN 10.5 g/dL (12.0-16.0); MEAN PLATELET VOLUME 10.2 fL (7.9-10.8); PLT - PLATELET COUNT 170.0 10^3/uL (130-450); RED CELL DISTRIBUTION WIDTH 14.7 % (12.0-15.0)
[2025-03-12 08:24] LABS: BUN - BLOOD UREA NITROGEN 36.0 mg/dL (6-20); CARBON DIOXIDE - CO2 27.0 mmol/L (21-32); CREATININE 1.4 mg/dL (0.6-1.3); GFR - MDRD 36.0 (>89)
--- NOTE | 2025-03-12 10:56 | Discharge Summary ---
Discharge Summary Admit Date: 03/09/25 Discharge Date: 03/12/25 Discharging Provider: Jameson Thomas Primary Care Provider: Mago Baldwin Code Status: Attempt Resuscitation DIAGNOSES Admission Diagnoses: Recurrent obstructive pyelonephritis GABRIELA Status post TAVR Discharge Diagnoses with Status of Each Condition: Gram-negative bacteremiasecondary to UTI. Preliminary PCR shows Proteus. Discharging on Vantin, then on Keflex for suppressive therapy Recurrent obstructive pyelonephritisstatus post cystoscopy with ureteral stent. AKIresolved S/p TAVRchronic HPI History of Present Illness: 79 yo female who presents to the ED with left flank pain after Left ureteroscopy, laser lithotripsy with stent placement and stone basket extraction of left kidney stone with history of Proteus urinary tract infections. Patient was discharged to home this morning after overnight recovery. Unfortunately when she came home the stent fell out. She began to have left flank pain and presented to the emergency department with complaints of left flank pain. Emergency department spoke with Dr. Shields her urologist who requested that the patient be admitted overnight, receive IV antibiotics and will go to the operating room in the morning for further evaluation and treatment of her left hydronephrosis. The patient is generally not feeling well. She has a lot of back pain she has a lot of fatigue she denies any fevers. She has been taking Tylenol at home for her pain which has been helping. HOSPITAL COURSE Hospital Course: Patient was admitted to the hospital and started on Rocephin. She underwent cystoscopy/ureteroscopy with left-sided stent placement on 03/10. She was found to have a gram-negative bacteremia, PCR identifies Proteus species. She received 4 days of IV Rocephin, and is being discharged on a course of Vantin, and will start suppressive Keflex after this is done. She already has follow-up appointment scheduled with PCP, and will also follow-up with urology ALLERGIES Allergies Allergy/AdvReac Type Severity Reaction Status Date / Time nitrofurantoin Allergy Severe Hives, Verified 03/09/25 19:17 syncope ondansetron Allergy Mild Hives Verified 03/11/25 03:24 adhesive tape AdvReac Mild Rash Verified 03/09/25 19:17 Sulfa (Sulfonamide AdvReac Unknown Nausea Verified 03/09/25 19:17 Antibiotics) MEDICATIONS Ambulatory Orders Medication Instructions Recorded Confirmed Permanent Disabled Placard 04/23/24 03/08/25 rosuvastatin 5 mg tablet (Crestor) 5 mg PO QPM #90 tab s 04/23/24 03/10/25 fluoxetine 60 mg tablet 60 mg PO QAM #90 tabs 03/10/25 aspirin 81 mg tablet 81 mg PO DAILY 12/31/2402/18 buspirone 10 mg tablet 20 mg (2 x 10 mg) PO BID #18 0 tabs 03/02/25 03/10/25 mirabegron 25 mg tablet,extended 25 mg PO DAILY 03/10/25 release 24 hr (Myrbetriq) cephalexin 500 mg capsule See Rx Instructions .Route 1 .COMPLEX #80 caps PHYSICAL EXAM AT DISCHARGE Vital Signs: Vital Signs x48h Temp Pulse Resp BP Pulse Ox 03/12/25 08:17 37.0 C 72 20 132/65 H 97 03/12/25 06:00 36.7 C 64 16 139/69 H 96 Physical Exam Other/Comments: General Appearance: positive No acute distress and Alert Eyes Bilateral: positive Normal inspection ENT: positive ENT inspection nml Neck: positive Nml inspection Respiratory: positive Chest non-tender Cardiovascular: positive Regular rate & rhythm Abdomen: positive Non-tender Back: positive Nml inspection Skin: positive Color nml Extremities: positive Non-tender Neurologic/Psychiatric: positive Oriented x3 LABS 03/12/25 07:54 03/12/25 07:54 FOLLOW UP Follow Up: With PCP, urology TIME SPENT Time Spent in Discharge (Minutes): 38 Discharge Plan Discharge Condition: Serious Prescriptions: New cephalexin 500 mg capsule See Rx Instructions .ROUTE .COMPLEX Qty: 80 0RF Rx Instructions: 500 mg orally ;take one cap four times a day (every 6 hours) for 14 days. Afterwards, take one cap nightly before going to bed. Complete the full course of antibiotics cefpodoxime 200 mg tablet 200 mg PO BID 4 Days Qty: 8 0RF Rx Instructions: must administer with a meal/food Continued fluoxetine 60 mg tablet 60 mg PO QAM Qty: 90 3RF Rx Instructions: for depression buspirone 10 mg tablet 20 mg PO BID Qty: 180 3RF mirabegron [Myrbetriq] 25 mg tablet extended release 24 hr 25 mg PO DAILY (DME) Permanent Disabled Placard Misc See Rx Instructions .Route Rx Instructions: As directed rosuvastatin [Crestor] 5 mg tablet 5 mg PO QPM Qty: 90 3RF Rx Instructions: for cholesterol aspirin 81 mg tablet 81 mg PO DAILY Activity Restrictions/Additional Instructions: DIET - You may resume your normal diet if there is no nausea or vomiting. You may want to avoid spicy, greasy, or heavy foods today to minimize gas. - If nausea or vomiting occurs, don't eat or drink anything for one hour. Then start drinking small amounts of clear liquids. Later, add crackers, gradually building up to your usual diet. ACTIVITY INSTRUCTIONS * Resume normal activity DISCHARGE INSTRUCTIONS * You have a ureteral stent in place. This must be exchanged or removed within [address] Shields's office will contact you for follow-up in roughly 3 weeks time. You will have a CT scan beforehand MEDICATIONS * Resume normal medications. * Take cephalexin antibiotic 4 times a day for the next 2 weeks. Afterwards take 1 pill nightly until stopped by Dr. Shields ANESTHESIA PRECAUTIONS Anesthesia and medications given during surgery remain in your body up to 24 hours. This may slow reaction time and/or decrease coordination. FOR THE NEXT 24 HOURS: - Have a responsible person with you - Avoid any activity that requires you to be alert and coordinated - DO NOT DRIVE a motor vehicle for 24 hours or as long as you are taking opoid pain medication - Do not drink alcoholic beverages - Do not smoke unattended Patient Date Escort Date RN Date Health Concerns: You came into the hospital because your ureteral stent fell out and you had ureteral obstruction. You were treated for this with cystoscopy and replacement stent. You are found to have a UTI, which led to an infection in your bloodstream. You have responded well to IV antibiotics, and are ready for discharge home on oral antibiotics. I would like for you to finish out a course of Vantin. You will take this twice daily starting tomorrow until the bottle is empty. Afterwards, take the Keflex as prescribed by Dr. Shields. There is no need to take both at the same time. Please follow-up with urology as well as with PCP. You have a follow-up appointment with [facility] on , 03/18 at 2:20 PM Print Language: Hebrew Patient Instructions: Surg Dc, Having a Ureteral Stent Stand Alone Forms: PCP List Follow-up Care: Parrish Shields MD [Provider Admit Priv/Credential, Urology] Referral Note: you will be contacted for followup with Dr Shields in 3 weeks for possible stent removal in the office. You will have a CAT scan in early March which the hospital will call you about Mago Baldwin PA-C [Primary Care Provider, Family Practice] Vitals documented within 30 minutes of discharge?: Yes
[2025-03-12 11:39] VITALS: BP 132/64; TEMP 98.8; O2SAT 95
== END 2025-03-12 12:00 | disposition home or self-care (01) | DRG 694 ==
LOC: MS3 19:04 → ED 19:04 → MS3 21:10
PROVIDERS: ADMIT Physician Assistant Medical; ATTEND Physician Assistant Medical
DX: I25.10 Atherosclerotic heart disease of native coronary artery without angina pectoris; B96.4 Proteus (mirabilis) (morganii) as the cause of diseases classified elsewhere; N18.9 Chronic kidney disease, unspecified; Z95.2 Presence of prosthetic heart valve; N11.1 Chronic obstructive pyelonephritis; N17.9 Acute kidney failure, unspecified; Z87.891 Personal history of nicotine dependence; T83.123A Displacement of other urinary stents, initial encounter; I12.9 Hypertensive chronic kidney disease with stage 1 through stage 4 chronic kidney disease, or unspecified chronic kidney disease; N39.0 Urinary tract infection, site not specified